=== PATIENT | male | born 1965 | race Hispanic/Latino ===

== ENCOUNTER 2019-02-22 08:22 | Observation (INO) | payer OTHER ==
[~2019-02-22] VITALS: Ht 180.3 cm; Wt 192.8 kg
[~2019-02-22 08:22] MED LIST: AMLODIPINE BESYL5 MG PO; ANDROGEL; ASPIR 8181 MG PO; AUGMENTIN 875-1 EACH PO; CARDIZEM LA180 MG PO; CLINDAMYCIN HC150 MG PO; CORDARONE200 MG PO; CYCLOBENZAPRINE10 MG PO; FAMOTIDINE20 MG PO; Famotidine IV; Hydrochlorothiazide PO; JANUVIA100 MG PO; JANUVIA50 MG PO; LANOXIN250 MCG PO; LANTUS100 UNITS/; LANTUS100 UNITS/ SC; LEVEMIR100 UNIT/1 SQ; LISINOPRIL-HCT1 EAC1; LOSARTAN POTAS100 MG PO; METFORMIN HCL1000 MG PO; METFORMIN HCL500 MG PO; NAPROXEN250 MG PO; SIMVASTATIN80 MG PO; TYLENOL WITH C1 EACH PO; XARELTO10 MG PO; [UNRECOGNIZED DRUG - OTHER]
--- OUTSIDE RECORDS SUMMARY | 2019-02-22 08:25 | XMS REPORT ---
[facility] Address Unknown Phone Unavailable Care Team Providers Care Body Trimmer Name Role Phone Devyn STANTON Unavailable Unavailable Problems This patient has no known problems. Allergies, Adverse Reactions, Alerts This patient has no known allergies or adverse reactions. Medications This patient has no known medications. Results Test Description Test Time Test Comments Text Results Atomic Results Result Comments TISSUE EXAM 2017-02-03 15:15:00 Surgical Pathology Report Case: [id number] Authorizing Provider: Anthony Stanton MD Collected: 02/02/2017 1353 Ord ering Location: [facility] Endoscopy Received: 02/02/2017 1540 Services Pathologist: Liliam Nova MD Specimens: A) - Polyp, Colon - Right/Ascending, cold forceps polypectomy B) - Polyp, Colon - Left/Descending, cold forceps polypectomy C) - Polyp, Colon - Rectum, cold forceps polypectomy A. ASCENDING COLON POLYP, BIOPSY: - MUCOSAL TAG B. DESCENDING COLON POLYP, BIOPSY: - TUBULAR ADENOMAC. RECTAL POLYP, BIOPSY: - MUCOSAL TAG 98112 X 3Colon cancer screeningA. Right/ascending colon polypB. Left/descending colon polypC. Rectum polypSpecimen A: Received in formalin labeled "polyp, colon right/ascending" is a single fragment measuring 0.3 cm in greatest dimension. Specimen is entirely submitted in A1. Specimen B: Received in formalin labeled "polyp, colon left/descending" are three fragments measuring 0.6 x 0.5 x 0.1 cm in aggregate. Specimen is entirely submitted in B1.Specimen C: Received in formalin labeled "polyp, colon rectum" are three fragments measuring 0.7 x 0.6 x 0.1 cm in aggregate. Specimen is entirely submitted in C1. DB/Taina-B, performed. POTASSIUM-STAT LAB 2017-02-02 14:51:00 POTASSIUM (BEAKER) (test qpdd=762) 3.4 meq/L 3.6-5.5 POCT-GLUCOSE [id number] 12:15:00* Test Item Value Reference Range Comments POC-GLUCOSE METER (TATIANA) (test mxqd=8235) 157 mg/dL 70-110 TESTED AT [facility] [address] [facility] [address]
--- OUTSIDE RECORDS SUMMARY | 2019-02-22 08:25 | XMS REPORT | Clinical Summary ---
Author Author JANIE [facility] Organization [facility] Address Unknown Phone Unavailable Care Team Providers Care Transporter Driver Name Role Phone EloyKen sung Tarun PCP Unavailable Allergies No Known Allergies Medications End Date Status Medication Sig Dispensed Refills Start Date Active metFORMIN (GLUCOPHAGE) Take 1,000 mg 0 1000 MG tablet by mouth 2 (two) times daily with breakfast and dinner. Active SITagliptin (JANUVIA) 100 Take 100 mg 0 MG tablet by mouth daily. Active aspirin 325 MG EC tablet Take 325 mg 0 by mouth daily. Active atorvastatin (LIPITOR) 40 Take 40 mg by 0 MG tablet mouth daily. Active diltiazem (TIAZAC) 180 MG Take 180 mg 0 24 hr capsule by mouth daily. Active insulin glargine (LANTUS) Inject 0 100 unit/mL injection subcutaneousl y nightly Use as directed . Active losartan-hydroCHLOROthiaz Take 1 tablet 0 teto (HYZAAR) 100-25 mg by mouth per tablet daily. Active famotidine (PEPCID) 10 MG Take 10 mg by 0 tabletIndications: mouth daily heartburn as needed for Heartburn. Active Problems Not on file Social History Date Tobacco Use Types Packs/Day Years Used Never Smoker Smokeless Tobacco: Never Used Alcohol Use Drinks/Week oz/Week Comments Yes occas. Sex Assigned at Date Recorded Not on file Industry Job Start Date Occupation Not on file Not on file Not on file Travel End Travel History Travel Start No recent travel history available. Last Filed Vital Signs Not on file Plan of Treatment Not on file Results Not on fileafter 02/21/2018 Insurance Payer Benefit Subscriber ID Type Phone Address Plan / Group [employer] - [employer] CARE [employer]H xxxxxxxxxxx HMO/POS NETWORK
--- NOTE | 2019-02-22 08:40 | NUR ---
URINE CUP GIVEN AT TRIAGE.
[2019-02-22] MEDS ORDERED: ASPIRIN325 MG PO (08:48)
[2019-02-22] MEDS ORDERED: TYLENOL WITH C1 EACH PO (08:48)
[2019-02-22] MEDS ORDERED: PIOGLITAZONE HC45 MG PO (08:48)
[2019-02-22] MEDS ORDERED: ATORVASTATIN CA20 MG PO (08:48)
[2019-02-22] MEDS ORDERED: TESTOSTERONE (08:48)
[2019-02-22] MEDS ORDERED: LOSARTAN-HCTZ1 EAC1 PO (08:48)
[2019-02-22] MEDS ORDERED: NOVOLOG100 UNITS1 (08:49)
[2019-02-22] MEDS ORDERED: HUMALOG100 UNIT/3 (08:49)
[2019-02-22] MEDS ORDERED: SODIUM CHLORIDE 0.9% 1000ML 1,000 ML IV STA (09:02)
--- NOTE | 2019-02-22 09:31 | Diagnostic Imaging Report ---
Examination: Single AP view of the chest. COMPARISON: None. INDICATION: Tachycardia DISCUSSION: The lungs are well-inflated. Minimal linear opacity in the lung bases right greater than left compatible with subsegmental atelectasis. No airspace consolidation, pleural effusion, or pneumothorax. Atherosclerotic calcification of the thoracic aorta. Otherwise normal cardiomediastinal contour for portable, AP technique. No acute osseous abnormality. IMPRESSION: Subsegmental atelectasis in the lung bases. Otherwise no acute cardiopulmonary abnormality. Signed by: Dr. Tushar Cano M.D. on 02/22/2019 9:28 AM
[2019-02-22 10:19] LABS: BASOPHILS % 0.2 % (0.0-1.0); HEMATOCRIT 44.7 % (38.2-49.6); HEMOGLOBIN 15.2 g/dL (14.0-18.0); LYMPHOCYTES # (AUTO) 1.1 (1.0-3.2); LYMPHOCYTES % 6.2 % (18.0-39.1); MEAN CORPUSCULAR HEMOGLOBIN 29.1 pg (28-32); MEAN CORPUSCULAR VOLUME 85.5 fL (81-99); MONOCYTES % 5.7 % (4.4-11.3); NEUTROPHILS # (AUTO) 14.9 (2.1-6.9); NEUTROPHILS % 87.4 % (38.7-80.0); PLATELET COUNT 199 x10e3/uL (140-360); RED BLOOD COUNT 5.23 x10e6/uL (4.3-5.7); RED CELL DISTRIBUTION WIDTH 13.1 % (11.7-14.4)
[2019-02-22 10:21] LABS: BILIRUBIN,URINE NEGATIVE (NEGATIVE); CLARITY,URINE SL CLOUDY (CLEAR); COLOR,URINE YELLOW (YELLOW); KETONES,URINE NEGATIVE (NEGATIVE); LEUKOCYTE ESTERASE ,URINE NEGATIVE (NEGATIVE); NITRITE,URINE NEGATIVE (NEGATIVE); PROTEIN,URINE DIPSTICK 1+ (NEGATIVE); URINE UROBILINOGEN 4 mg/dL (0.2 - 1)
[2019-02-22 10:39] LABS: BACTERIA,URINE RARE /HPF; EPITHELIAL CELLS,URINE FEW /LPF
[2019-02-22 10:40] LABS: WBC,URINE (MAN) 0-5 /HPF (0-5)
[2019-02-22 10:45] LABS: ALANINE AMINOTRANSFERASE 31 IU/L (0-55); ALBUMIN/GLOBULIN RATIO 0.7 (0.8-2.0); ALKALINE PHOSPHATASE 84 IU/L (40-150); BLOOD UREA NITROGEN 19 mg/dL (7-26); BUN/CREATININE RATIO 19 (6-25); CALCIUM 9.4 mg/dL (8.4-10.2); CARBON DIOXIDE 25 mmol/L (22-29); CHLORIDE 98 mmol/L (98-107); CREATINE KINASE 138 IU/L (30-200); CREATININE, SERUM 1.01 mg/dL (0.72-1.25); EST GLOMERULAR FILTRATION RATE > 60 ML/MIN (60-); GLUCOSE 279 mg/dL (74-118); SODIUM 131 mmol/L (136-145)
[2019-02-22] MEDS ORDERED: CEFTRIAXONE SOD 1 GM/NS 50 ML 50 ML IV SCH (10:45)
[2019-02-22] MEDS ORDERED: CLINDAMYCIN PHOS 900MG/ 50ML 50 ML IV STA (11:02)
[2019-02-22] MEDS ORDERED: ACETAMINOPHEN 1000 MG/100 ML IV STA (11:02)
[2019-02-22] MEDS ORDERED: CLINDAMYCIN PHOS 900MG/ 50ML 50 ML IV NR (11:30)
[2019-02-22] MEDS ORDERED: CLINDAMYCIN 300MG 50 ML IV SCH (12:00)
[2019-02-22 12:05] LABS: INFLUENZAE A&B ANTIGEN (RAPID) NEGATIVE (NEGATIVE); STREPTOCOCCUS GRP A ANTIGEN NEGATIVE (NEGATIVE)
[2019-02-22] MEDS ORDERED: ONDANSETRON HCL INJ 2MG/ML 2ML 2 MG/ML VIAL IV PRN (12:15)
[2019-02-22] MEDS ORDERED: ACETAMINOPHEN 325 MG TAB PO PRN (12:15)
--- OUTSIDE RECORDS SUMMARY | 2019-02-22 12:21 | XMS REPORT | Clinical Summary ---
Author Author JANIE [facility] Organization [facility] Address Unknown Phone Unavailable Care Team Providers Care Fireproof Door Assembler Name Role Phone EloyKen sung Tarun PCP [...]
[2019-02-22] MEDS: CLINDAMYCIN PHOS 900MG/ 50ML 50 ML IV SCH ×2 (12:28→21:46)
[2019-02-22] MEDS ORDERED: CLONIDINE HCL 0.1 MG TAB PO PRN (12:30)
[2019-02-22] MEDS: SODIUM CHLORIDE 0.9% 1000ML 1,000 ML IV SCH ×3 (13:07→21:54)
--- NOTE | 2019-02-22 14:04 | Diagnostic Imaging Report ---
Exam: Left foot 3 views History: Concern for osteomyelitis the second digit Comparison: None. Findings: No acute, displaced fracture or dislocation. Appropriate alignment between the medial cuneiform and second metatarsal base in keeping with an intact Lisfranc ligament. No cortical erosive or destructive change. Specifically, the phalanges of the second ray are intact. Atherosclerotic vascular calcifications. Degenerative plantar calcaneal spur. Scattered degenerative joint disease of the midfoot. Impression: No acute osseous abnormality. No cortical erosive or destructive change of the phalanges of the second ray to suggest osteomyelitis. If there is strong clinical concern, 3 phase nuclear medicine bone scan or MRI with and without contrast may be obtained for more sensitive evaluation. Signed by: Dr. Tushar Cano M.D. on 02/22/2019 2:00 PM
[2019-02-22] MEDS ORDERED: METFORMIN HCL500 MG PO (17:32)
[2019-02-22] MEDS: METFORMIN HCL 500 MG TAB CR PO SCH (17:58)
[2019-02-22] MEDS: LACTOBACILLUS ACIDOPHILUS CAPSULE PO SCH (17:58)
[2019-02-22] MEDS: INSULIN LISPRO 100 UNIT/1 ML 3ML VIAL SQ SCH ×2 (17:58→21:45)
--- NOTE | 2019-02-22 20:51 | NUR ---
pt placed on tele box 3
[2019-02-22 21:25] VITALS: BP 169/76
[2019-02-22] MEDS: ENOXAPARIN SOD INJ 40 MG/0.4 ML SYR SC SCH (21:45)
[2019-02-22 22:10] VITALS: BP 169/76
[2019-02-22 22:16] VITALS: BP 169/76
[2019-02-23 00:35] VITALS: BP 143/70
[2019-02-23 04:30] VITALS: BP 142/66
[2019-02-23] MEDS: CLINDAMYCIN PHOS 900MG/ 50ML 50 ML IV SCH (05:01)
[2019-02-23 05:41] LABS: BASOPHILS % 0.4 % (0.0-1.0); EOSINOPHILS # (AUTO) 0.1 (0.0-0.4); EOSINOPHILS % 0.6 % (0.0-6.0); HEMATOCRIT 47.2 % (38.2-49.6); HEMOGLOBIN 15.8 g/dL (14.0-18.0); LYMPHOCYTES # (AUTO) 2.8 (1.0-3.2); LYMPHOCYTES % 27.5 % (18.0-39.1); MEAN CORPUSCULAR HEMOGLOBIN 28.8 pg (28-32); MEAN CORPUSCULAR HGB CONC 33.5 g/dL (31-35); MONOCYTES # (AUTO) 1.1 (0.2-0.8); MONOCYTES % 10.8 % (4.4-11.3); NEUTROPHILS # (AUTO) 6.2 (2.1-6.9); NEUTROPHILS % 60.4 % (38.7-80.0); PLATELET COUNT 192 x10e3/uL (140-360); RED BLOOD COUNT 5.49 x10e6/uL (4.3-5.7); RED CELL DISTRIBUTION WIDTH 13.2 % (11.7-14.4)
[2019-02-23 05:58] LABS: ALANINE AMINOTRANSFERASE 31 IU/L (0-55); ALBUMIN 2.9 g/dL (3.5-5.0); ALBUMIN/GLOBULIN RATIO 0.6 (0.8-2.0); ALKALINE PHOSPHATASE 80 IU/L (40-150); ANION GAP 12.8 mmol/L (8-16); BLOOD UREA NITROGEN 14 mg/dL (7-26); BUN/CREATININE RATIO 16 (6-25); CALCIUM 9.2 mg/dL (8.4-10.2); CARBON DIOXIDE 25 mmol/L (22-29); CHLORIDE 101 mmol/L (98-107); CREATININE, SERUM 0.89 mg/dL (0.72-1.25); EST GLOMERULAR FILTRATION RATE > 60 ML/MIN (60-); GLUCOSE 233 mg/dL (74-118); POTASSIUM 3.8 mmol/L (3.5-5.1); SODIUM 135 mmol/L (136-145)
--- NOTE | 2019-02-23 07:00 | NUR ---
rounded with shift lab technician nurse, patient aware of change and in no distress. at bedside, call jenkins within reach and bed in lowest position.
[2019-02-23 08:12] VITALS: BP 138/62
[2019-02-23 08:20] VITALS: BP 138/62
[2019-02-23] MEDS: ENOXAPARIN SOD INJ 40 MG/0.4 ML SYR SC SCH (08:20)
[2019-02-23] MEDS: INSULIN LISPRO 100 UNIT/1 ML 3ML VIAL SQ SCH ×2 (08:20→12:00)
[2019-02-23] MEDS: LACTOBACILLUS ACIDOPHILUS CAPSULE PO SCH (08:20)
[2019-02-23] MEDS: METFORMIN HCL 500 MG TAB CR PO SCH (08:20)
[2019-02-23] MEDS ORDERED: ASPIRIN 325 MG TAB PO SCH (09:00)
[2019-02-23] MEDS ORDERED: DILTIAZEM HCL 180 MG CAP ER PO SCH (09:00)
[2019-02-23] MEDS: SODIUM CHLORIDE 0.9% 1000ML 1,000 ML IV SCH (11:54)
[2019-02-23 12:14] VITALS: BP 137/76
[2019-02-23] MEDS ORDERED: PIOGLITAZONE HCL 15 MG TAB PO SCH (12:15)
[2019-02-23] MEDS ORDERED: CLINDAMYCIN HC150 MG PO (12:31)
[2019-02-23] MEDS ORDERED: ACIDOPHILUS1 EAC1 PO (12:32)
[2019-02-23] MEDS ORDERED: ONDANSETRON HCL 4 MG ORAL DISINTEGRATING TAB PO PRN (13:00)
--- NOTE | 2019-02-23 13:25 | NUR ---
patient alert and oriented with at bedside. discharge instructions given at this time, both verbalized understanding. IV discontinued at this time, catheter in tact and small dressing applied. Patient refused wheelchair assistance and will be escorted from unit to personal auto for to drive home.
--- NOTE | 2019-02-24 11:57 | Discharge Summary ---
PRIMARY CARE DOCTOR: Dr. Ken Lyons. FINAL DIAGNOSIS: Sepsis present on admission due to left leg cellulitis. SECONDARY DIAGNOSES: 1. Uncontrolled diabetes, better. 2. Hyponatremia, resolving. 3. Morbid obesity. 4. Hypertension, stable. PROCEDURES AND STUDIES PERFORMED: 1. Left leg venous Doppler preliminary was negative for DVT. 2. Foot x-ray was negative for osteo. 3. Chest x-ray just shows atelectasis. CONSULTANTS: None. HISTORY: Per H and P. HOSPITAL COURSE: The patient was aggressively hydrated. He was started on IV clindamycin. He responded well. His leukocytosis normalized. The patient is afebrile. We will go ahead and let him go home on six more days of oral clindamycin to complete a one-week course. The patient will follow up with his primary care doctor in one week. The patient was seen and examined today. CONDITION ON DISCHARGE: Improved. DISCHARGE MEDICATIONS: Please see medication reconciliation form. MD MERVAT Zuleta/ANN-MARIE /[id number]
== END 2019-02-23 13:25 | disposition home or self-care (01) ==
LOC: ER 08:22 → ERHOLD 12:18 → IMCU 20:55
PROVIDERS: ADMIT Internal Medicine; ATTEND Internal Medicine
DX: A41.9 Sepsis, unspecified organism (principal); E11.65 Type 2 diabetes mellitus with hyperglycemia; E87.1 Hypo-osmolality and hyponatremia; E66.01 Morbid (severe) obesity due to excess calories; Z68.43 Body mass index [BMI] 50.0-59.9, adult; I48.91 Unspecified atrial fibrillation; Z79.01 Long term (current) use of anticoagulants; I10 Essential (primary) hypertension; L03.116 Cellulitis of left lower limb
CPT/HCPCS: 36415 ×2; 71045; 73630; 80053 ×2; 81001; 82550; 82553; 82948 ×2; 83518; 83605; 84443; 84484; 85025 ×2; 87040; 87070; 87400; 93971; 99284; G0378 ×2; J0131; J0696; J1650 ×2; J7030

== ENCOUNTER 2019-04-12 14:01 | Inpatient (IN) | payer OTHER ==
[~2019-04-12] VITALS: Ht 180.3 cm; Wt 192.8 kg
[~2019-04-12 14:01] MED LIST changes: +ACIDOPHILUS1 EAC1 PO; +ASPIRIN325 MG PO; +ATORVASTATIN CA20 MG PO; +HUMALOG100 UNIT/3; +LOSARTAN-HCTZ1 EAC1 PO; +NOVOLOG100 UNITS1; +PIOGLITAZONE HC45 MG PO; +TESTOSTERONE
--- OUTSIDE RECORDS SUMMARY | 2019-04-12 14:05 | XMS REPORT | Clinical Summary ---
Author Author JANIE [facility] Organization [facility] Address Unknown Phone Unavailable Care Team Providers Care Certified Medical Dosimetrist Name Role Phone EloyKen Tarun PCP Unavailable Allergies No Known Allergies [...] Not on file Results Not on fileafter 04/11/2018 Insurance Payer Benefit Subscriber ID Type Phone Address Plan / Group [employer] - [employer] CARE [employer] COH xxxxxxxxxxx HMO/POS NETWORK
[2019-04-12] MEDS ORDERED: SODIUM CHLORIDE 0.9% 1000ML 1,000 ML IV STA ×3 (14:21→17:56)
[2019-04-12] MEDS ORDERED: ACETAMINOPHEN 1000 MG/100 ML IV ONE (14:30)
[2019-04-12] MEDS ORDERED: VANCOMYCIN 1GM/NS 250 ML 250 ML IV ONE (14:45)
[2019-04-12 14:49] LABS: BILIRUBIN,URINE NEGATIVE (NEGATIVE); CLARITY,URINE SL CLOUDY (CLEAR); COLOR,URINE YELLOW (YELLOW); KETONES,URINE TRACE (NEGATIVE); LEUKOCYTE ESTERASE ,URINE NEGATIVE (NEGATIVE); NITRITE,URINE NEGATIVE (NEGATIVE); URINE UROBILINOGEN 2 mg/dL (0.2 - 1)
[2019-04-12 14:52] LABS: PROTEIN,URINE DIPSTICK 3+ (NEGATIVE)
[2019-04-12 15:05] LABS: BACTERIA,URINE MODERATE /HPF; EPITHELIAL CELLS,URINE FEW /LPF; RBC,URINE 0-5 /HPF (0-5); WBC,URINE (MAN) 0-5 /HPF (0-5)
[2019-04-12 15:44] LABS: BASOPHILS % 0.2 % (0.0-1.0); EOSINOPHILS # (AUTO) 0.1 (0.0-0.4); EOSINOPHILS % 0.6 % (0.0-6.0); HEMATOCRIT 47.3 % (38.2-49.6); HEMOGLOBIN 15.5 g/dL (14.0-18.0); LYMPHOCYTES # (AUTO) 0.4 (1.0-3.2); LYMPHOCYTES % 2.3 % (18.0-39.1); MEAN CORPUSCULAR HEMOGLOBIN 28.3 pg (28-32); MEAN CORPUSCULAR HGB CONC 32.8 g/dL (31-35); MEAN CORPUSCULAR VOLUME 86.3 fL (81-99); MONOCYTES # (AUTO) 0.5 (0.2-0.8); MONOCYTES % 3.1 % (4.4-11.3); NEUTROPHILS # (AUTO) 15.9 (2.1-6.9); NEUTROPHILS % 92.7 % (38.7-80.0); PLATELET COUNT 206 x10e3/uL (140-360); RED BLOOD COUNT 5.48 x10e6/uL (4.3-5.7); RED CELL DISTRIBUTION WIDTH 13.6 % (11.7-14.4)
[2019-04-12] MEDS: CEFEPIME 2 GM/NS 0.9% 100 ML 100 ML IV SCH (15:46)
[2019-04-12 15:55] LABS: INR 1.03; PARTIAL THROMBOPLASTIN TIME 33.9 seconds (23.8-35.5)
[2019-04-12 16:07] LABS: ALBUMIN 3.1 g/dL (3.5-5.0); ALBUMIN/GLOBULIN RATIO 0.6 (0.8-2.0); ANION GAP 16.1 mmol/L (8-16); CALCIUM 9.6 mg/dL (8.4-10.2); CREATININE, SERUM 1.49 mg/dL (0.72-1.25); MAGNESIUM 1.5 MG/DL (1.3-2.1); POTASSIUM 4.1 mmol/L (3.5-5.1)
[2019-04-12 16:15] LABS: CREATINE KINASE MB 0.8 ng/mL (0-5.0)
--- NOTE | 2019-04-12 16:34 | Diagnostic Imaging Report ---
EXAMINATION: CHEST SINGLE (PORTABLE) INDICATION: Fever COMPARISON: Chest radiograph of 02/22/2019 FINDINGS: TUBES and LINES: EKG leads overlie the chest. LUNGS: The lung volumes are extremely low. No definite pulmonary edema. No focal consolidation. PLEURA: No pleural effusion. No pneumothorax. HEART AND MEDIASTINUM: The heart appears enlarged, however this may be a factor of the extremely low lung volumes. BONES AND SOFT TISSUES: No acute fracture or dislocation. UPPER ABDOMEN: No free air under the diaphragm. IMPRESSION: Extremely low lung volumes. No focal pneumonia or pulmonary edema. Signed by: Daphne Garza MD on 04/12/2019 4:31 PM
[2019-04-12] MEDS: PIPER-TAZ 3.375 GM 50 ML IV SCH (17:15)
[2019-04-12] MEDS ORDERED: ONDANSETRON HCL INJ 2MG/ML 2ML 2 MG/ML VIAL IV PRN (18:00)
[2019-04-12] MEDS ORDERED: ACETAMINOPHEN 1000 MG/100 ML IV PRN (18:00)
[2019-04-12 18:44] LABS: ABG HCO3 22 mmol/L (23-28); ABG PCO2 31 mmHg (41-51); ABG PH 7.45 (7.31-7.41); ABG PO2 56 mmHg (80-105)
--- OUTSIDE RECORDS SUMMARY | 2019-04-12 19:08 | XMS REPORT | Clinical Summary ---
Author Author JANIE [facility] Organization [facility] Address Unknown Phone Unavailable Care Team Providers Care Investigator Internal Affairs Name Role Phone EloyKen Tarun PCP Unavailable [...]
[2019-04-12] MEDS ORDERED: NOREPINEPHRINE INJ 4MG/4ML 8 MG in DEXTROSE 5% 250ML 250 ML IV PRN (19:15)
[2019-04-12] MEDS ORDERED: NOREPINEPHRINE 8 MG/D5W 250 ML 250 ML IV PRN (19:30)
--- NOTE | 2019-04-12 19:33 | Diagnostic Imaging Report ---
EXAMINATION: CHEST SINGLE (PORTABLE) INDICATION: ^RIJ CENTRAL LINE ^[id number] ^[id number] COMPARISON: Chest radiograph 04/12/2019 1616 p.m. FINDINGS: AP view TUBES and LINES: Interval placement of a right IJ central venous catheter with tip overlying the cavoatrial junction. LUNGS: Low lung volumes. Lungs are clear. There is no evidence of pneumonia or pulmonary edema. PLEURA: No pleural effusion or pneumothorax. HEART AND MEDIASTINUM: The cardiac silhouette is enlarged likely overestimated by low lung volumes. BONES AND SOFT TISSUES: No acute osseous lesion. Soft tissues are unremarkable. UPPER ABDOMEN: No free air under the diaphragm. IMPRESSION: Interval placement of a right IJ central venous catheter with tip overlying the cavoatrial junction. No pneumothorax. Signed by: Dr. Laurie Palmer M.D. on 04/12/2019 7:29 PM
--- NOTE | 2019-04-12 20:50 | NUR ---
Received to 189 from ER. Placed on EKG, pulse ox & NBP for monitoring. Admission history, initial admission assessment & vacine assessment completed.
[2019-04-12 20:59] VITALS: BP 132/62
[2019-04-12 21:07] VITALS: BP 132/62
[2019-04-12 21:13] VITALS: BP 132/62
[2019-04-12] MEDS ORDERED: SODIUM CHLORIDE 0.9% 1000ML 1,000 ML ONE (21:13)
[2019-04-12 21:30] VITALS: BP 150/65
[2019-04-12] MEDS ORDERED: SODIUM CHLORIDE 0.9% 500ML 500 ML ONE (21:46)
[2019-04-12 22:02] VITALS: BP 162/66
[2019-04-12] MEDS ORDERED: DEXTROSE 50% SYRINGE 50 ML IV PRN (22:30)
[2019-04-12] MEDS: AMIODARONE HCL 200 MG TAB PO SCH (22:36)
[2019-04-12] MEDS: DILTIAZEM HCL 180 MG CAP ER PO SCH (22:36)
[2019-04-12] MEDS: INSULIN LISPRO 100 UNIT/1 ML 3ML VIAL SQ SCH (22:36)
[2019-04-12 23:00] VITALS: BP 158/70
--- NOTE | 2019-04-12 23:31 | NUR ---
Temp now 103.1. IV Tylenol given.
[2019-04-13] VITALS (21 sets, daily range): BP systolic 104–178; BP diastolic 52–97
--- NOTE | 2019-04-13 00:30 | NUR ---
Temp now 99.4.
[2019-04-13] MEDS: PIPER-TAZ 3.375 GM 50 ML IV SCH ×4 (00:33→21:21)
--- NOTE | 2019-04-13 00:49 | NUR ---
Dangled at side of bed for 15 min then back in bed.
[2019-04-13] MEDS: CEFEPIME 2 GM/NS 0.9% 100 ML 100 ML IV SCH (02:53)
[2019-04-13 02:58] LABS: CREATINE KINASE 140 IU/L (30-200)
[2019-04-13 05:08] LABS: BASOPHILS % 0.2 % (0.0-1.0); EOSINOPHILS % 0.2 % (0.0-6.0); HEMATOCRIT 41.7 % (38.2-49.6); HEMOGLOBIN 13.9 g/dL (14.0-18.0); LYMPHOCYTES # (AUTO) 0.8 (1.0-3.2); LYMPHOCYTES % 4.7 % (18.0-39.1); MEAN CORPUSCULAR HEMOGLOBIN 28.8 pg (28-32); MEAN CORPUSCULAR HGB CONC 33.3 g/dL (31-35); MEAN CORPUSCULAR VOLUME 86.3 fL (81-99); MONOCYTES # (AUTO) 0.5 (0.2-0.8); MONOCYTES % 3.1 % (4.4-11.3); NEUTROPHILS # (AUTO) 15.8 (2.1-6.9); NEUTROPHILS % 91.1 % (38.7-80.0); PLATELET COUNT 154 x10e3/uL (140-360); RED BLOOD COUNT 4.83 x10e6/uL (4.3-5.7); RED CELL DISTRIBUTION WIDTH 13.9 % (11.7-14.4)
[2019-04-13 05:38] LABS: ALANINE AMINOTRANSFERASE 29 IU/L (0-55); ALBUMIN 2.4 g/dL (3.5-5.0); ALBUMIN/GLOBULIN RATIO 0.5 (0.8-2.0); ALKALINE PHOSPHATASE 68 IU/L (40-150); ANION GAP 13.6 mmol/L (8-16); BLOOD UREA NITROGEN 25 mg/dL (7-26); BUN/CREATININE RATIO 21 (6-25); CALCIUM 8.5 mg/dL (8.4-10.2); CARBON DIOXIDE 23 mmol/L (22-29); CHLORIDE 100 mmol/L (98-107); CREATININE, SERUM 1.17 mg/dL (0.72-1.25); EST GLOMERULAR FILTRATION RATE > 60 ML/MIN (60-); GLUCOSE 241 mg/dL (74-118); POTASSIUM 3.6 mmol/L (3.5-5.1); SODIUM 133 mmol/L (136-145)
[2019-04-13] MEDS: INSULIN LISPRO 100 UNIT/1 ML 3ML VIAL SQ SCH ×3 (07:45→21:28)
[2019-04-13] MEDS: AMIODARONE HCL 200 MG TAB PO SCH ×2 (09:53→17:10)
[2019-04-13 10:26] LABS: ANISOCYTOSIS SLIG; BAND NEUTROPHILS % (MANUAL) 5 %; LYMPHOCYTES % (MANUAL) 26 % (19-48); MONOCYTES % (MANUAL) 4 % (3.4-9.0); NEUTROPHILS % (MANUAL) 65 % (40-74); PLATELET ESTIMATE ADEQUATE; PLATELET MORPHOLOGY COMMENT NORMAL; POIKILOCYTOSIS SLIGHT; RBC MORPHOLOGY COMMENT ABNORMAL
[2019-04-13 11:54] LABS: CREATINE KINASE MB 0.9 ng/mL (0-5.0)
[2019-04-13] MEDS: VANCOMYCIN 1GM/NS 250 ML 250 ML IV SCH ×2 (12:25→23:34)
[2019-04-13] MEDS ORDERED: CLONIDINE HCL 0.1 MG TAB PO PRN (12:30)
--- NOTE | 2019-04-13 13:15 | NUR ---
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 WILL DETERMINE PLAN FROM DOCTOR EVALUATION.
[2019-04-13] MEDS: LACTATED RINGER'S 1,000 ML IV SCH ×2 (13:48→23:22)
[2019-04-13] MEDS: ENOXAPARIN SOD INJ 40 MG/0.4 ML SYR SC SCH ×2 (13:48→21:21)
[2019-04-13] MEDS: INSULIN GLARGINE 100 UNITS/ML VIAL SQ SCH (13:48)
[2019-04-13] MEDS: FAMOTIDINE 20 MG TAB PO SCH (16:56)
[2019-04-13] MEDS: LACTOBACILLUS ACIDOPHILUS CAPSULE PO SCH (17:10)
--- NOTE | 2019-04-13 21:10 | Consultation ---
INFECTIOUS DISEASE CONSULTATION DATE OF CONSULTATION: 04/13/2019 REASON FOR CONSULTATION: Bacteremia. Thank you, Dr. Sanchez, for asking me to see this patient, who was admitted through the emergency department. HISTORY OF PRESENT ILLNESS: The patient is a 53-year-old man, who was referred for bacteremia. He presented to the emergency department yesterday with fever and chills. He was feeling fatigued and weak for two days prior. He sustained scratches of the leg and subsequently developed redness. The patient developed the scratches of the leg while wading in salt [place] [facility]. He denies insect and spider bite and animal contact. In the emergency department, he was noted to have temperature of 103 degrees Fahrenheit, pulse rate 107, respiratory rate 22, blood pressure 116/61, and oxygen saturation 92% on room air. Initial laboratory studies showed blood leukocyte count of 17,120 with 92.7% neutrophils, BUN 29, creatinine 1.49, and blood glucose 274. Blood culture later grew gram-positive cocci in chains. PAST MEDICAL HISTORY: Severe obesity, diabetes mellitus type 2, hypertension, dyslipidemia, atrial fibrillation, gastroesophageal reflux disease, recurrent cellulitis. PAST SURGICAL HISTORY: Left knee surgery for repair of torn tendon. ALLERGIES: NO KNOWN DRUG ALLERGIES. MEDICATIONS: See MAR. The current antibiotics are Zosyn 3.375 g IV piggyback q.8 hours and vancomycin 1 g IV piggyback q. 12 hours. He received cefepime earlier. IMMUNIZATION: He received Pneumovax in 2012, Tdap within 10 years, and shingles vaccine as well. FAMILY HISTORY: Noncontributory. SOCIAL HISTORY: No tobacco or recreational drug use. He drinks alcohol rarely. REVIEW OF SYSTEMS: As per history of present illness. The patient is still weak and fatigued and reports intermittent fever and chills. He denies cough, shortness of breath, nausea, vomiting, diarrhea, abdominal pain, dysuria and increased frequency of urination. Still has left leg redness. PHYSICAL EXAMINATION: GENERAL: Acutely ill. VITAL SIGNS: T-max 103, pulse rate 95, respiratory rate 17, blood pressure 144/77, weight 419 pounds. HEENT: Normocephalic. There is no icterus or injection of conjunctivae. There is no ear or nasal discharge. Moist oral mucosa with copious dental plaques. No pharyngeal erythema or exudate. NECK: Supple. No meningismus. LUNGS: Good air entry bilaterally. HEART: Normal S1, S2. Regular. ABDOMEN: Soft and nontender. EXTREMITIES: There is edema, redness, warmth and mild tenderness of the left leg extended from below the knee to the ankle. The dorsalis pedis and posterior tibial pulses are palpable. There is no edema, clubbing, or cyanosis of the rest of the extremities. There is a horizontal crack of the left 2nd toe plantar aspect. SKIN: As per extremities, there are multiple scratch luevano and scabs of the legs and forearms. DAY GUARD: Awake, alert, oriented to person, place, and time. There is decreased sensation to monofilament test of the feet. Nonfocal. LABORATORY AND DIAGNOSTICS: WBC 26746, hemoglobin 13.9, platelet 154,000, segments 65, bands 5, lymphocytes 26, monocytes 4. BUN 25, creatinine 1.17, blood glucose 231. Blood culture is growing a gram-positive cocci in chains. IMPRESSION: 1. Sepsis from cellulitis of the left leg with bacteremia. 2. Acute kidney injury from sepsis. 3. Diabetes mellitus type 2 with peripheral neuropathy, uncontrolled. 4. Paroxysmal atrial fibrillation. PLAN: 1. Await blood isolate identification and sensitivity. 2. Check vancomycin trough and venous Doppler ultrasound of the left lower extremity. 3. Apply warm compresses to the left leg and elevate left lower extremity. 4. Deescalate antibiotics once blood isolate is known and sensitivity is determined. 5. Glycemic control. 6. Podiatry consult for skin crack of the second left toe. MD KRAIG Phelps/ANN-MARIE /[id number] MTDNathan
[2019-04-13] MEDS: DILTIAZEM HCL 180 MG CAP ER PO SCH (21:21)
[2019-04-14] VITALS (8 sets, daily range): BP systolic 126–147; BP diastolic 64–80
[2019-04-14] MEDS: ACETAMINOPHEN 325 MG TAB PO PRN ×2 (05:20→17:17)
[2019-04-14] MEDS: PIPER-TAZ 3.375 GM 50 ML IV SCH ×3 (05:20→21:48)
[2019-04-14 05:43] LABS: BASOPHILS % 0.2 % (0.0-1.0); EOSINOPHILS % 0.1 % (0.0-6.0); HEMATOCRIT 39.8 % (38.2-49.6); HEMOGLOBIN 13.2 g/dL (14.0-18.0); LYMPHOCYTES # (AUTO) 1.3 (1.0-3.2); LYMPHOCYTES % 10.2 % (18.0-39.1); MEAN CORPUSCULAR HEMOGLOBIN 28.7 pg (28-32); MEAN CORPUSCULAR HGB CONC 33.2 g/dL (31-35); MEAN CORPUSCULAR VOLUME 86.5 fL (81-99); MONOCYTES # (AUTO) 1.1 (0.2-0.8); MONOCYTES % 9.1 % (4.4-11.3); NEUTROPHILS # (AUTO) 9.8 (2.1-6.9); NEUTROPHILS % 79.9 % (38.7-80.0); PLATELET COUNT 143 x10e3/uL (140-360); RED CELL DISTRIBUTION WIDTH 13.9 % (11.7-14.4)
[2019-04-14 06:08] LABS: ANION GAP 13.1 mmol/L (8-16); BLOOD UREA NITROGEN 15 mg/dL (7-26); BUN/CREATININE RATIO 17 (6-25); CALCIUM 8.9 mg/dL (8.4-10.2); CARBON DIOXIDE 25 mmol/L (22-29); CHLORIDE 100 mmol/L (98-107); CREATININE, SERUM 0.86 mg/dL (0.72-1.25); EST GLOMERULAR FILTRATION RATE > 60 ML/MIN (60-); GLUCOSE 225 mg/dL (74-118); POTASSIUM 4.1 mmol/L (3.5-5.1); SODIUM 134 mmol/L (136-145)
[2019-04-14] MEDS: INSULIN GLARGINE 100 UNITS/ML VIAL SQ SCH (07:30)
[2019-04-14] MEDS: INSULIN LISPRO 100 UNIT/1 ML 3ML VIAL SQ SCH ×4 (07:30→21:01)
[2019-04-14 07:32] LABS: LYMPHOCYTES % (MANUAL) 10 % (19-48); MONOCYTES % (MANUAL) 10 % (3.4-9.0); NEUTROPHILS % (MANUAL) 80 % (40-74); RBC MORPHOLOGY COMMENT NORMAL
[2019-04-14 07:33] LABS: PLATELET ESTIMATE SLIGHTLY DECREASED; PLATELET MORPHOLOGY COMMENT FEW AGRANULAR
[2019-04-14] MEDS: FAMOTIDINE 20 MG TAB PO SCH ×2 (08:00→17:00)
--- NOTE | 2019-04-14 08:00 | NUR ---
Patient is up in recliner in NAD. at the bedside. POC discussed. Patient and spouse instructed to call for assistance as needed and verbalized understanding.
[2019-04-14] MEDS: AMIODARONE HCL 200 MG TAB PO SCH ×2 (08:08→17:00)
[2019-04-14] MEDS: LACTOBACILLUS ACIDOPHILUS CAPSULE PO SCH ×2 (08:08→17:00)
[2019-04-14] MEDS: ENOXAPARIN SOD INJ 40 MG/0.4 ML SYR SC SCH ×2 (08:09→21:01)
[2019-04-14] MEDS: LACTATED RINGER'S 1,000 ML IV SCH (08:09)
[2019-04-14] MEDS ORDERED: ONDANSETRON HCL 4 MG ORAL DISINTEGRATING TAB PO PRN (10:45)
[2019-04-14] MEDS: METFORMIN HCL 500 MG TAB PO SCH ×2 (12:44→17:00)
[2019-04-14] MEDS: VANCOMYCIN 1GM/NS 250 ML 250 ML IV SCH (13:03)
[2019-04-14] MEDS ORDERED: VANCOMYCIN HCL 1.5 GM in SODIUM CHLORIDE 0.9% 250ML 300 ML IV SCH (13:45)
--- NOTE | 2019-04-14 19:00 | NUR ---
Walking rounds a nd report done. remains at the bedside. Call jenkins within reach.
--- NOTE | 2019-04-14 19:00 | NUR ---
Report received from AM nurse Britni. Patient received resting comfortably on recliner. Denied pain and no SOB. Respiration even and unlabored. at the bedside. Will continue to monitor.
[2019-04-14] MEDS: DILTIAZEM HCL 180 MG CAP ER PO SCH (21:01)
[2019-04-14] MEDS ORDERED: SODIUM CHLORIDE 0.9% 250ML 250 ML ONE (23:43)
[2019-04-15] VITALS (8 sets, daily range): BP systolic 118–154; BP diastolic 54–81
[2019-04-15] MEDS: VANCOMYCIN HCL 1.5 GM in SODIUM CHLORIDE 0.9% 250ML 300 ML IV SCH ×2 (01:07→13:38)
[2019-04-15] MEDS: ACETAMINOPHEN 325 MG TAB PO PRN ×2 (04:47→18:27)
[2019-04-15] MEDS: PIPER-TAZ 3.375 GM 50 ML IV SCH ×3 (05:40→21:36)
[2019-04-15] MEDS: METFORMIN HCL 500 MG TAB PO SCH ×2 (08:18→16:49)
[2019-04-15] MEDS: ENOXAPARIN SOD INJ 40 MG/0.4 ML SYR SC SCH ×2 (08:18→20:58)
[2019-04-15] MEDS: FAMOTIDINE 20 MG TAB PO SCH ×2 (08:18→16:49)
[2019-04-15] MEDS: AMIODARONE HCL 200 MG TAB PO SCH ×2 (08:18→16:49)
[2019-04-15] MEDS: LACTOBACILLUS ACIDOPHILUS CAPSULE PO SCH ×2 (08:18→16:49)
[2019-04-15] MEDS: INSULIN GLARGINE 100 UNITS/ML VIAL SQ SCH (08:19)
[2019-04-15] MEDS: INSULIN LISPRO 100 UNIT/1 ML 3ML VIAL SQ SCH ×4 (08:19→20:58)
[2019-04-15] MEDS ORDERED: LACTULOSE SYRUP 20 GM/30 ML UDC PO ONE (10:30)
--- NOTE | 2019-04-15 18:55 | NUR ---
pt concerned about GUARAV or desats while sleeping, bedside monitor ordered for while asleep
[2019-04-15] MEDS: DILTIAZEM HCL 180 MG CAP ER PO SCH (20:58)
[2019-04-16] MEDS: VANCOMYCIN HCL 1.5 GM in SODIUM CHLORIDE 0.9% 250ML 300 ML IV SCH ×2 (00:58→13:32)
[2019-04-16 04:51] VITALS: BP 106/88
[2019-04-16 05:10] LABS: BASOPHILS % 0.4 % (0.0-1.0); EOSINOPHILS # (AUTO) 0.1 (0.0-0.4); EOSINOPHILS % 1.1 % (0.0-6.0); HEMATOCRIT 37.9 % (38.2-49.6); HEMOGLOBIN 12.4 g/dL (14.0-18.0); LYMPHOCYTES # (AUTO) 2.1 (1.0-3.2); LYMPHOCYTES % 26.5 % (18.0-39.1); MEAN CORPUSCULAR HEMOGLOBIN 28.1 pg (28-32); MEAN CORPUSCULAR HGB CONC 32.7 g/dL (31-35); MEAN CORPUSCULAR VOLUME 85.9 fL (81-99); MONOCYTES # (AUTO) 1.1 (0.2-0.8); MONOCYTES % 13.4 % (4.4-11.3); NEUTROPHILS # (AUTO) 4.5 (2.1-6.9); NEUTROPHILS % 57.3 % (38.7-80.0); PLATELET COUNT 179 x10e3/uL (140-360); RED BLOOD COUNT 4.41 x10e6/uL (4.3-5.7); RED CELL DISTRIBUTION WIDTH 13.6 % (11.7-14.4)
[2019-04-16 05:35] LABS: ANION GAP 13.8 mmol/L (8-16); BLOOD UREA NITROGEN 15 mg/dL (7-26); BUN/CREATININE RATIO 18 (6-25); CALCIUM 8.9 mg/dL (8.4-10.2); CARBON DIOXIDE 25 mmol/L (22-29); CHLORIDE 100 mmol/L (98-107); CREATININE, SERUM 0.83 mg/dL (0.72-1.25); EST GLOMERULAR FILTRATION RATE > 60 ML/MIN (60-); GLUCOSE 181 mg/dL (74-118); POTASSIUM 3.8 mmol/L (3.5-5.1); SODIUM 135 mmol/L (136-145)
[2019-04-16] MEDS: PIPER-TAZ 3.375 GM 50 ML IV SCH ×2 (06:09→13:32)
[2019-04-16 07:21] VITALS: BP 135/77
[2019-04-16] MEDS: AMIODARONE HCL 200 MG TAB PO SCH ×2 (07:30→16:22)
[2019-04-16] MEDS: METFORMIN HCL 500 MG TAB PO SCH ×2 (07:30→16:22)
[2019-04-16] MEDS: LACTOBACILLUS ACIDOPHILUS CAPSULE PO SCH ×2 (07:30→16:22)
[2019-04-16] MEDS: INSULIN LISPRO 100 UNIT/1 ML 3ML VIAL SQ SCH ×4 (07:30→21:11)
[2019-04-16] MEDS: ENOXAPARIN SOD INJ 40 MG/0.4 ML SYR SC SCH ×2 (07:30→21:10)
[2019-04-16] MEDS: FAMOTIDINE 20 MG TAB PO SCH ×2 (07:30→16:22)
[2019-04-16 08:10] VITALS: BP 135/77
[2019-04-16] MEDS: INSULIN GLARGINE 100 UNITS/ML VIAL SQ SCH (09:00)
[2019-04-16] MEDS: ACETAMINOPHEN 325 MG TAB PO PRN ×2 (10:15→21:00)
[2019-04-16 11:19] VITALS: BP 127/56
[2019-04-16] MEDS: CEFTRIAXONE SOD 2 GM/NS 100 ML 100 ML IV SCH (13:41)
[2019-04-16 16:19] VITALS: BP 135/63
[2019-04-16 20:00] VITALS: BP_SYST 135; BP_SYST 137; BP_DIAS 63; BP_DIAS 67
[2019-04-16] MEDS: DILTIAZEM HCL 180 MG CAP ER PO SCH (21:10)
[2019-04-17] VITALS: BP 126/63
[2019-04-17 04:00] VITALS: BP 153/74
--- NOTE | 2019-04-17 07:00 | NUR ---
Report given to oncoming nurse,walking round done.
[2019-04-17] MEDS: INSULIN LISPRO 100 UNIT/1 ML 3ML VIAL SQ SCH ×2 (07:30→11:30)
[2019-04-17 07:52] VITALS: BP 148/84
[2019-04-17] MEDS: FAMOTIDINE 20 MG TAB PO SCH (08:20)
[2019-04-17] MEDS: METFORMIN HCL 500 MG TAB PO SCH (08:20)
[2019-04-17] MEDS: ENOXAPARIN SOD INJ 40 MG/0.4 ML SYR SC SCH (08:21)
[2019-04-17] MEDS: LACTOBACILLUS ACIDOPHILUS CAPSULE PO SCH (08:21)
[2019-04-17] MEDS: AMIODARONE HCL 200 MG TAB PO SCH (08:21)
[2019-04-17] MEDS: INSULIN GLARGINE 100 UNITS/ML VIAL SQ SCH (08:22)
[2019-04-17 08:23] VITALS: BP 148/84
--- NOTE | 2019-04-17 09:45 | NUR ---
Report given to Tosin YOUNG of patient's status. Taken to room 295. Accompanied by . O2 2L NC.
--- NOTE | 2019-04-17 09:55 | NUR ---
RECD PT FROM 187,VIA BED AAOX3,NO DISTRESS NOTED,O2 2L NC IN PLACE,
--- NOTE | 2019-04-17 11:24 | NUR ---
PT UP AMBULATING IN [place] ,RA SATS95%,NO SOB NOTED
[2019-04-17 11:56] VITALS: BP 142/66
[2019-04-17] MEDS ORDERED: CEPHALEXIN500 MG PO (13:45)
[2019-04-17] MEDS: CEFTRIAXONE SOD 2 GM/NS 100 ML 100 ML IV SCH (13:45)
[2019-04-17] MEDS ORDERED: FUROSEMIDE INJ 10 MG/ML 4 ML VIAL IV ONE (14:00)
--- NOTE | 2019-04-17 14:45 | NUR ---
rt ij dcd without redness or swelling,tip intact,pressure drsg applied
--- NOTE | 2019-04-17 15:45 | NUR ---
pt discharged home , apescriptions and instructions given copy on chart,pt transported to auto via w/c
--- NOTE | 2019-04-18 05:03 | Discharge Summary ---
PRIMARY CARE DOCTOR: Dr. Ken Lyons. FINAL DIAGNOSIS: Severe sepsis present on admission secondary to cellulitis with Strep septicemia. SECONDARY DIAGNOSES: 1. Morbid obesity. 2. Acute kidney injury, resolved. 3. Hypertension. 4. History of atrial fibrillation, still on amiodarone, but was taken off anticoagulation by his [facility] government guard. 5. Diabetes. SCRAP BREAKER: Dr. Meyer, Infectious Disease. PROCEDURES/STUDY PERFORMED: 1. Echocardiogram. 2. Doppler was negative for DVT. HISTORY: Per H and P. HOSPITAL COURSE: The patient was admitted. Initially, the patient was on Zosyn and vancomycin. The patient did well. Subsequently, this was switched to IV Rocephin. The patient continued to improve. Repeat blood culture is negative at 48 hours. I have discussed with Dr. Meyer today. The patient can go home on 10 more days of Keflex. The patient will also follow up with his primary care doctor in a week. I have updated his primary care doctor as well. The patient received Lovenox b.i.d. for chemical DVT prophylaxis, given morbid obesity. The patient was seen and examined today. It took 33 minutes total to discharge this patient continuing. CONDITION ON DISCHARGE: Improved. DISCHARGE MEDICATIONS: Please see medication reconciliation form. MD MERVAT Zuleta/ANN-MARIE /[id number] cc: [facility]
== END 2019-04-17 15:55 | disposition home or self-care (01) | DRG 871 ==
LOC: ER 14:01 → ERHOLD 17:56 → ICU 20:45 → IMCU 04-13 17:32 → MED/SURG3 04-17 09:39
PROVIDERS: ADMIT Internal Medicine; ATTEND Internal Medicine
DX: A40.9 Streptococcal sepsis, unspecified (principal); R65.21 Severe sepsis with septic shock; Z68.43 Body mass index [BMI] 50.0-59.9, adult; L03.119 Cellulitis of unspecified part of limb; N17.9 Acute kidney failure, unspecified; E66.01 Morbid (severe) obesity due to excess calories; E11.65 Type 2 diabetes mellitus with hyperglycemia
CPT/HCPCS: 36415; 36600; 71045; 80048; 80053; 80202; 81001; 82550; 82553; 82805; 82948; 83605; 83735; 84484; 85025; 85610; 85730; 87040; 87071; 87086; 87205; 93005; 93306; 93971; 97139; 99284; J0696; J1650; J1815; J1940; J2405; J2543; J3370; J7030; J7040; J7050; J7121; Q0162

== ENCOUNTER 2020-01-14 13:48 | Inpatient (IN) | payer OTHER ==
[~2020-01-14] VITALS: Ht 180.3 cm; Wt 194.6 kg
[~2020-01-14 13:48] MED LIST changes: +AMIODARONE HCL200 MG PO; +BACTRIM DS TAB1 EACH PO; +CEPHALEXIN500 MG PO; +LEVEMIR100 UNIT/1 SC; +TRULICITY0.75 MG/0. SQ
[2020-01-14] MEDS ORDERED: SODIUM CHLORIDE 0.9% 1000ML 1,000 ML IV STA (13:57)
[2020-01-14] MEDS ORDERED: ACETAMINOPHEN 325 MG TAB PO ONE (14:30)
[2020-01-14] MEDS ORDERED: AZITHROMYCIN 500MG/NS 250 ML 250 ML IV ONE (15:30)
[2020-01-14] MEDS ORDERED: PIPER-TAZ 3.375 GM 50 ML IV ONE (15:30)
--- NOTE | 2020-01-14 15:32 | Diagnostic Imaging Report ---
EXAMINATION: CHEST SINGLE (PORTABLE) INDICATION: ^Y ^ERMD ORDER ^[id number] ^1445 ^Y COMPARISON: 09/21/2019 FINDINGS: AP view TUBES and LINES: Right PICC has been removed. LUNGS: Low lung volumes. Bilateral pulmonary edema. Bibasilar consolidations. PLEURA: Small bilateral pleural effusions. No pneumothorax. HEART AND MEDIASTINUM: Stable mild enlargement of the cardiac silhouette. BONES AND SOFT TISSUES: No acute osseous lesion. Soft tissues are unremarkable. UPPER ABDOMEN: No free air under the diaphragm. IMPRESSION: Stable mild cardiomegaly with associated mild pulmonary edema and small bilateral pleural effusions, unchanged. Bibasilar atelectasis, decreased. Signed by: Dr. Laurie Palmer M.D. on 01/14/2020 3:27 PM
[2020-01-14 15:51] LABS: STREPTOCOCCUS GRP A ANTIGEN NEGATIVE (NEGATIVE)
[2020-01-14 15:58] LABS: INFLUENZAE A&B ANTIGEN (RAPID) NEGATIVE (NEGATIVE)
[2020-01-14 15:58] LABS: BASOPHILS % 0.2 % (0.0-1.0); EOSINOPHILS # (AUTO) 0.1 (0.0-0.4); EOSINOPHILS % 0.6 % (0.0-6.0); HEMATOCRIT 47.4 % (38.2-49.6); HEMOGLOBIN 15.6 g/dL (14.0-18.0); LYMPHOCYTES # (AUTO) 0.5 (1.0-3.2); LYMPHOCYTES % 3.2 % (18.0-39.1); MEAN CORPUSCULAR HEMOGLOBIN 28.9 pg (28-32); MEAN CORPUSCULAR HGB CONC 32.9 g/dL (31-35); MEAN CORPUSCULAR VOLUME 87.8 fL (81-99); MONOCYTES # (AUTO) 0.5 (0.2-0.8); NEUTROPHILS # (AUTO) 14.5 (2.1-6.9); NEUTROPHILS % 92.4 % (38.7-80.0); PLATELET COUNT 221 x10e3/uL (140-360); RED CELL DISTRIBUTION WIDTH 13.2 % (11.7-14.4)
[2020-01-14 16:05] LABS: INR 0.98; PROTHROMBIN TIME 13.6 seconds (11.9-14.5)
[2020-01-14 16:06] LABS: PARTIAL THROMBOPLASTIN TIME 29.5 seconds (23.8-35.5)
[2020-01-14 16:16] LABS: ALANINE AMINOTRANSFERASE 47 IU/L (0-55); ALBUMIN 3.4 g/dL (3.5-5.0); ALBUMIN/GLOBULIN RATIO 0.8 (0.8-2.0); ALKALINE PHOSPHATASE 100 IU/L (40-150); ANION GAP 15.8 mmol/L (8-16); BLOOD UREA NITROGEN 24 mg/dL (7-26); BUN/CREATININE RATIO 18 (6-25); CALCIUM 9.9 mg/dL (8.4-10.2); CARBON DIOXIDE 25 mmol/L (22-29); CHLORIDE 100 mmol/L (98-107); CREATINE KINASE 232 IU/L (30-200); CREATININE, SERUM 1.31 mg/dL (0.72-1.25); EST GLOMERULAR FILTRATION RATE 57 ML/MIN (60-); GLUCOSE 154 mg/dL (74-118); POTASSIUM 4.8 mmol/L (3.5-5.1); SODIUM 136 mmol/L (136-145)
[2020-01-14] MEDS ORDERED: SODIUM CHLORIDE 0.9% 1000ML 1,300 ML IV STA (16:16)
[2020-01-14] MEDS ORDERED: ACETAMINOPHEN 1000 MG/100 ML IV PRN (16:45)
[2020-01-14] MEDS ORDERED: ONDANSETRON HCL INJ 2MG/ML 2ML 2 MG/ML VIAL IV PRN (16:45)
[2020-01-14 16:50] LABS: CLARITY,URINE CLEAR (CLEAR); COLOR,URINE YELLOW (YELLOW); LEUKOCYTE ESTERASE ,URINE NEGATIVE (NEGATIVE); NITRITE,URINE NEGATIVE (NEGATIVE)
[2020-01-14 16:51] LABS: BACTERIA,URINE FEW /HPF; BILIRUBIN,URINE NEGATIVE (NEGATIVE); KETONES,URINE 1+ (NEGATIVE); PROTEIN,URINE DIPSTICK 1+ (NEGATIVE); RBC,URINE 0-5 /HPF (0-5); URINE UROBILINOGEN 2 mg/dL (0.2 - 1); WBC,URINE (MAN) 0-5 /HPF (0-5)
--- NOTE | 2020-01-14 17:24 | NUR ---
Monica Sandhu is emergency contact [phone]
[2020-01-14 17:47] LABS: LYMPHOCYTES % (MANUAL) 3 % (19-48); MONOCYTES % (MANUAL) 4 % (3.4-9.0); NEUTROPHILS % (MANUAL) 93 % (40-74); PLATELET MORPHOLOGY COMMENT NORMAL
[2020-01-14 17:48] LABS: PLATELET ESTIMATE ADEQUATE; RBC MORPHOLOGY COMMENT NORMAL
--- NOTE | 2020-01-14 18:00 | NUR ---
Dr. Sainz notified this RN that picc was cleared for use. Immediately restarted NS boluses, and IV abx.
[2020-01-14] MEDS ORDERED: DEXTROSE 50% SYRINGE 50 ML IV PRN (18:15)
--- NOTE | 2020-01-14 18:27 | Diagnostic Imaging Report ---
EXAMINATION: CHEST XRAY LINE PLACEMENT INDICATION: ^Y ^PICC line placement ^[id number] ^[id number] COMPARISON: 01/14/2020 FINDINGS: AP view TUBES and LINES: Interval placement of a right PICC which is difficult to visualize due to underpenetration but the tip appears to overlying the high SVC. LUNGS: Low lung volumes. Bilateral pulmonary edema. Bibasilar consolidations. PLEURA: No pleural effusion or pneumothorax. HEART AND MEDIASTINUM: Stable mild enlargement of the cardiac silhouette. BONES AND SOFT TISSUES: No acute osseous lesion. Soft tissues are unremarkable. UPPER ABDOMEN: No free air under the diaphragm. IMPRESSION: Interval placement of a right PICC which is difficult to visualize but the deep appears to overlying the high SVC. Recommend a more penetrated beam on subsequent chest x-ray. No pneumothorax. Otherwise, no interval change. Signed by: Dr. Laurie Palmer M.D. on 01/14/2020 6:23 PM
--- NOTE | 2020-01-14 18:40 | Consultation ---
DATE OF CONSULTATION: Pulmonary Critical Care Consultation CHIEF COMPLAINT: Fever. HISTORY OF PRESENT ILLNESS: The patient is a 54-year-old man. He has a history of diabetes. He also has a history of recurrent cellulitis of the left leg. He was hospitalized in March 2019 with left leg cellulitis and septic shock. He was hospitalized again in August 2019 with cellulitis. His cultures grew out group B strep. He required IV antibiotics and eventually went home. He now complains of recurrent fevers. He denies any cough or difficulty breathing. He did have some erythema and cellulitis in the left leg. PAST SURGICAL HISTORY: 1. Status post knee surgery. 2. Status post tonsillectomy. PAST MEDICAL HISTORY: 1. Diabetes mellitus. 2. Hypertension. 3. Atrial fibrillation. 4. Gastroesophageal reflux. ALLERGIES: THERE ARE NO KNOWN DRUG ALLERGIES. FAMILY HISTORY: Family history is significant for diabetes and hypertension. SOCIAL HISTORY: The patient is not an active smoker. He is not an active drinker[place] REVIEW OF SYSTEMS: He did have fevers. He has no headache. He is not having any neck pain. He denies sore throat. He is not having chest pain. He denies cough or difficulty breathing. He denies abdominal pain, nausea, vomiting. He does note some pain and swelling in his left leg. PHYSICAL EXAMINATION: VITAL SIGNS: The blood pressure is 148/54, saturation is 95% and the pulse rate is 98. His temperature is 103.3. HEENT: Shows no facial swelling or erythema. CARDIAC: Reveals regular rate and rhythm with normal S1 and S2. LUNGS: Auscultation of lungs reveals rhonchorous breath sounds bilaterally. There is no wheezing. ABDOMEN: Soft, nontender. There is no rebound or guarding. EXTREMITIES: Shows some erythema and tenderness in the left lower extremity and foot. NEUROLOGICAL: Shows no focal abnormalities. LABORATORY DATA: Creatinine is increased to 1.31 from a baseline of 0.84. Other electrolytes are within normal limits. Glucose is 258 and the lactic acid is 2.3. Albumin is 3.4. The white blood cell count is 15.7 and hemoglobin is 15.6. The platelet count is 221. RADIOGRAPHIC DATA: Chest x-ray shows some cardiomegaly and possibly some cephalization. IMPRESSION: 1. Recurrent left leg cellulitis with associated sepsis present on admission. 2. Acute kidney injury. 3. Diabetes. 4. Hypertension. 5. Paroxysmal atrial fibrillation. PLAN: 1. The patient will receive intravenous fluids. 2. Antibiotics. 3. Testing for coronavirus. 4. Monitor and control blood sugars. 5. Echocardiogram. 6. Antihypertensive regimen. MD JUANCARLOS Pierson/MODL /[id number]
[2020-01-14 19:45] VITALS: BP 150/73
[2020-01-14 20:00] VITALS: BP 169/77
--- NOTE | 2020-01-14 20:00 | NUR ---
Dr. Bryon Mcbride notified of pt's critically elevated lactic, ordered another liter bolus of NS and to recheck in 4 hours, notify MD if lactic increases again.
[2020-01-14] MEDS: FAMOTIDINE 20 MG/2 ML VIAL IV SCH (20:39)
[2020-01-14] MEDS: VANCOMYCIN 1GM/NS 250 ML 250 ML IV SCH (20:40)
[2020-01-14] MEDS: INSULIN LISPRO 100 UNIT/1 ML 3ML VIAL SQ SCH (20:40)
[2020-01-14] MEDS: ATORVASTATIN 40 MG TAB PO SCH (20:40)
[2020-01-14] MEDS ORDERED: SODIUM CHLORIDE 0.9% 1000ML 1,000 ML IV ONE (20:45)
[2020-01-14] MEDS: INSULIN GLARGINE 100 UNITS/ML VIAL SC SCH (20:54)
[2020-01-14 21:00] VITALS: BP 173/72
[2020-01-14] MEDS: PIPER-TAZ 3.375 GM 50 ML IV SCH (21:17)
[2020-01-14 22:00] VITALS: BP 179/73
[2020-01-14 23:00] VITALS: BP 139/66
[2020-01-15] VITALS (19 sets, daily range): BP systolic 111–170; BP diastolic 52–80
[2020-01-15 01:27] LABS: CREATINE KINASE 160 IU/L (30-200)
[2020-01-15] MEDS: FAMOTIDINE 20 MG/2 ML VIAL IV SCH (04:06)
[2020-01-15] MEDS: PIPER-TAZ 3.375 GM 50 ML IV SCH (04:06)
[2020-01-15] MEDS: VANCOMYCIN 1GM/NS 250 ML 250 ML IV SCH ×2 (05:50→17:43)
[2020-01-15 05:59] LABS: BASOPHILS % 0.1 % (0.0-1.0); HEMATOCRIT 42.4 % (38.2-49.6); HEMOGLOBIN 14.3 g/dL (14.0-18.0); LYMPHOCYTES # (AUTO) 0.8 (1.0-3.2); MEAN CORPUSCULAR HEMOGLOBIN 29.5 pg (28-32); MEAN CORPUSCULAR HGB CONC 33.7 g/dL (31-35); MEAN CORPUSCULAR VOLUME 87.4 fL (81-99); MONOCYTES # (AUTO) 0.6 (0.2-0.8); MONOCYTES % 3.3 % (4.4-11.3); NEUTROPHILS # (AUTO) 17.5 (2.1-6.9); NEUTROPHILS % 91.6 % (38.7-80.0); PLATELET COUNT 180 x10e3/uL (140-360); RED BLOOD COUNT 4.85 x10e6/uL (4.3-5.7); RED CELL DISTRIBUTION WIDTH 13.5 % (11.7-14.4)
[2020-01-15 06:29] LABS: CREATINE KINASE 170 IU/L (30-200)
--- NOTE | 2020-01-15 06:41 | Diagnostic Imaging Report ---
EXAMINATION: CHEST SINGLE (PORTABLE) INDICATION: Fever. COMPARISON: Chest radiograph 01/14/2020. FINDINGS: AP view Examination is limited by portable technique and low lung volumes. TUBES and LINES: Right right PICC with tip obscured, but possibly in the upper SVC. LUNGS: Low lung volumes. Bilateral perihilar and interstitial opacities. Patchy and linear bibasilar opacities. PLEURA: No pleural effusion or pneumothorax. HEART AND MEDIASTINUM: Stable mild enlargement of the cardiac silhouette. BONES AND SOFT TISSUES: No acute osseous lesion. Soft tissues are unremarkable. UPPER ABDOMEN: No free air under the diaphragm. IMPRESSION: Mild cardiomegaly and pulmonary interstitial edema. Bibasilar opacities, likely atelectasis, although infection is possible in the appropriate clinical setting. No new consolidation. Signed by: Dr. Dom Perez MD on 01/15/2020 6:38 AM
[2020-01-15 06:54] LABS: ALBUMIN 2.7 g/dL (3.5-5.0); ALBUMIN/GLOBULIN RATIO 0.6 (0.8-2.0); CALCIUM 8.7 mg/dL (8.4-10.2); CREATININE, SERUM 1.25 mg/dL (0.72-1.25)
[2020-01-15 07:11] LABS: BAND NEUTROPHILS % (MANUAL) 13 %; LYMPHOCYTES % (MANUAL) 1 % (19-48); MONOCYTES % (MANUAL) 2 % (3.4-9.0); NEUTROPHILS % (MANUAL) 84 % (40-74); NUCLEATED RED BLOOD CELLS 1; PLATELET ESTIMATE ADEQUATE; PLATELET MORPHOLOGY COMMENT NORMAL; RBC MORPHOLOGY COMMENT NORMAL
[2020-01-15] MEDS: INSULIN LISPRO 100 UNIT/1 ML 3ML VIAL SQ SCH ×4 (08:02→21:22)
[2020-01-15] MEDS: ASPIRIN 325 MG TAB PO SCH (08:25)
[2020-01-15] MEDS: DILTIAZEM HCL 180 MG CAP ER PO SCH (08:25)
[2020-01-15] MEDS: AMIODARONE HCL 200 MG TAB PO SCH (08:26)
[2020-01-15] MEDS ORDERED: FAMOTIDINE 20 MG TAB PO SCH (09:00)
--- NOTE | 2020-01-15 10:12 | NUR ---
INFECTIOUS DISEASE CONSULTATION CC: Left Leg Cellulitis, Pain and Erythema HPI: This is a very pleasant 54 year old male. The patient arrived to the ED with complaints of fevers and erythema to the left leg. The patient has a PMH of cellulitis to the left leg. The patient was previously hospitalized with Left le g cellulitis and septic shock in August. Cultures then grew group B strep. The patient denies cough or difficulty breathing. COVID19 PCR negative upon admission. PMH: T2DM, HTN, A-fib, GERD ROS: POSITIVE: erythema and LLE leg pain NEGATIVE: nausea, vomiting, chills, diarrhea, neck pain, chest pain ALL SYSTEMS REVIEWED AND NEGATIVE UNLESS OTHERWISE NOTED FAMILY HISTORY: not significant SOCIAL HISTORY: no smoking, no drinking[place] PHYSICAL EXAM: VS: TMAX: 103.3., 141/80, 94, 22, GENERAL: AAOx3 HEENT: normocephalic, non-icteric NECK: no JVD CV: s1, s2 without s3, s4 CHEST: Rhonchi, diminished ABD: soft, non-tender, no guarding EXT: shows erythema, tenderness to LLE PSYCH: intact NEURO: CN intact LABS: Reviewed RADIOLOGY: IMPRESSION: Mild cardiomegaly and pulmonary interstitial edema. Bibasilar opacities, likely atelectasis, although infection is possible in the appropriate clinical setting. No new consolidation. IMPRESSION: 1. Fever 2. Left Leg Cellulitis 3. ZUHAIR 4. T2DM 5. Paroxysmal AFIB 6. Leukocytosis 7. Sepsis on admission PLAN: 01/15/20 Patient currently on Vancomycin, add Cefepime. D/C Zosyn and Azithromycin. Left leg cellulitis, recurrent. Supportive care per critical care team. Recheck labs in AM. Pending blood and urine cultures. For now, we will plan for 5 days of IV Vanc and Cefepime. Vanc trough tomorrow. Thank you for the consult! Discussed with Dr. Gamble
[2020-01-15] MEDS ORDERED: CEFEPIME HCL 1 GM VIAL IV SCH (10:15)
[2020-01-15] MEDS: CEFEPIME 1GM/NS 0.9% 50 ML 50 ML IV SCH ×2 (11:30→23:15)
--- NOTE | 2020-01-15 14:38 | Progress Note ---
DATE: SUBJECTIVE: The patient's coronavirus is negative. He is afebrile. He does have some erythema and swelling of his left lower extremity. He complains of fatigue. PHYSICAL EXAMINATION: VITAL SIGNS: The patient is afebrile. The blood pressure is 149/61 and saturation is 94% on 3 L. HEENT: Shows no facial swelling or erythema. CARDIAC: Reveals a regular rate and rhythm with normal S1, S2. There are no murmurs or rubs heard. LUNGS: Ascultation of lungs reveals decreased breath sounds at the bases. There is no wheezing. ABDOMEN: Soft, nontender. There is no rebound or guarding. EXTREMITIES: Shows 1 to 2+ leg edema with some erythema. LABORATORY DATA: Creatinine is 1.25. Other electrolytes are within normal limits. IMPRESSION: 1. Cellulitis of the left lower extremity with associated sepsis present on admission. 2. Acute kidney injury. 3. Diabetes. 4. Hypertension. 5. Paroxysmal atrial fibrillation. PLAN: 1. Continue current intravenous fluids. 2. Continue antibiotics. 3. Monitor and control blood sugars. 4. Transfer out of intensive care unit today. Alonzo Mcbride MD [facility]/MODL /[id number]
--- NOTE | 2020-01-15 14:40 | NUR ---
PATIENT RECEIVED FROM ICU PER WHEEL CHAIR. ALERT AND VERBALLY RESPONSIVE. ASSISTED TO THE RESTROOM AND BACK TO RECLINING CHAIR. TELEMETRY [address]. REDNESS AND SWELLING TO LEFT LEG. RT CALLED FOR CPAP MACHINE AND O2 EXTENSION CORD. ALL PERSONAL ITEMS CLOSE TO PATIENT, CALL LIGHT AT REACH.
[2020-01-15] MEDS ORDERED: AZITHROMYCIN 500MG/NS 250 ML 250 ML IV SCH (16:00)
[2020-01-15] MEDS: ACETAMINOPHEN 325 MG TAB PO PRN ×2 (17:00→23:15)
[2020-01-15] MEDS: LACTOBACILLUS ACIDOPHILUS CAPSULE PO SCH (17:06)
[2020-01-15] MEDS: ENOXAPARIN SOD INJ 40 MG/0.4 ML SYR SC SCH (17:06)
[2020-01-15] MEDS ORDERED: SODIUM CHLORIDE 0.9% 250ML 250 ML ONE (17:40)
[2020-01-15] MEDS: ATORVASTATIN 40 MG TAB PO SCH (21:13)
[2020-01-15] MEDS: INSULIN GLARGINE 100 UNITS/ML VIAL SC SCH (21:19)
[2020-01-16] VITALS (8 sets, daily range): BP systolic 119–157; BP diastolic 56–82
[2020-01-16 05:36] LABS: BASOPHILS % 0.1 % (0.0-1.0); HEMATOCRIT 40.4 % (38.2-49.6); HEMOGLOBIN 13.1 g/dL (14.0-18.0); LYMPHOCYTES # (AUTO) 1.1 (1.0-3.2); LYMPHOCYTES % 7.5 % (18.0-39.1); MEAN CORPUSCULAR HEMOGLOBIN 28.7 pg (28-32); MEAN CORPUSCULAR HGB CONC 32.4 g/dL (31-35); MEAN CORPUSCULAR VOLUME 88.4 fL (81-99); MONOCYTES # (AUTO) 0.9 (0.2-0.8); MONOCYTES % 6.2 % (4.4-11.3); NEUTROPHILS # (AUTO) 12.7 (2.1-6.9); NEUTROPHILS % 85.6 % (38.7-80.0); PLATELET COUNT 132 x10e3/uL (140-360); RED BLOOD COUNT 4.57 x10e6/uL (4.3-5.7); RED CELL DISTRIBUTION WIDTH 13.4 % (11.7-14.4)
[2020-01-16] MEDS: VANCOMYCIN 1GM/NS 250 ML 250 ML IV SCH (06:00)
[2020-01-16] MEDS: ACETAMINOPHEN 325 MG TAB PO PRN (06:00)
[2020-01-16 06:19] LABS: BLOOD UREA NITROGEN 18 mg/dL (7-26); BUN/CREATININE RATIO 19 (6-25); CALCIUM 8.8 mg/dL (8.4-10.2); CARBON DIOXIDE 24 mmol/L (22-29); CHLORIDE 103 mmol/L (98-107); CREATININE, SERUM 0.95 mg/dL (0.72-1.25); EST GLOMERULAR FILTRATION RATE > 60 ML/MIN (60-); GLUCOSE 196 mg/dL (74-118); SODIUM 136 mmol/L (136-145)
[2020-01-16 06:58] LABS: BAND NEUTROPHILS % (MANUAL) 4 %; LYMPHOCYTES % (MANUAL) 8 % (19-48); MONOCYTES % (MANUAL) 5 % (3.4-9.0); NEUTROPHILS % (MANUAL) 82 % (40-74)
[2020-01-16 07:00] LABS: PLATELET ESTIMATE SLIGHTLY DECREASED; PLATELET MORPHOLOGY COMMENT NORMAL; RBC MORPHOLOGY COMMENT NORMAL
[2020-01-16] MEDS: INSULIN LISPRO 100 UNIT/1 ML 3ML VIAL SQ SCH ×4 (07:30→21:00)
[2020-01-16] MEDS: DILTIAZEM HCL 180 MG CAP ER PO SCH (10:02)
[2020-01-16] MEDS: LACTOBACILLUS ACIDOPHILUS CAPSULE PO SCH ×2 (10:02→16:48)
[2020-01-16] MEDS: AMIODARONE HCL 200 MG TAB PO SCH (10:02)
[2020-01-16] MEDS: ENOXAPARIN SOD INJ 40 MG/0.4 ML SYR SC SCH ×2 (10:02→16:48)
[2020-01-16] MEDS: ASPIRIN 325 MG TAB PO SCH (10:03)
--- NOTE | 2020-01-16 10:26 | Progress Note ---
DATE: SUBJECTIVE: The patient is seen and evaluated. Discussed with the nurse. Discussed with Dr. Gamble. REVIEW OF SYSTEMS: He remains with fever and left lower extremity cellulitis and pain. No cough. No shortness of breath. No diarrhea. No dysuria. MEDICATIONS: Medication list reviewed. As far as Infectious Disease point of view, the patient is on vancomycin IV and cefepime. LABORATORY STUDIES: White count of 14.78, improved from 19.14, hemoglobin 13.1. Platelets 132, dropped from 180. Toxicology and vancomycin trough 5.3 today. Serology COVID-19. PCR negative on 01/14/2020. Influenza A and B antigen negative. Group A strep screen negative. MICROBIOLOGY: Blood culture, urine culture, and throat culture all on 01/13 negative. Radiology studies, status post right upper extremity PICC line. Chest x-ray from yesterday showed mild cardiomegaly with pulmonary interstitial edema. Bibasilar opacities likely atelectasis, maybe some infection involved. There is no new consolidation. PHYSICAL EXAMINATION: VITAL SIGNS: Temperature is 99.7 with a maximum temperature of 100.9 in the past 48 hours. Overall, improvement from 103.3. Pulse is 88, respirations 20, blood pressure 138/61. GENERAL: Alert and oriented, sitting in a recliner, feet hanging, morbidly obese. No obvious sign of shortness of breath. Seems weak and ill. Overall, left lower extremity pain from foot to almost knee. CV: S1, S2. CHEST: Equal expansion. No acute distress. ABDOMEN: Obese, soft, nontender. HEENT: Moist. No pallor. No JVD. ASSESSMENT AND PLAN: 1. Fever, improved. Cultures negative so far. Radiology studies as above. 2. Cellulitis of left lower extremity. 3. Leukocytosis, improving. 4. Thrombocytopenia, worse today. 5. Morbid obesity. 6. Pain on the left leg due to cellulitis. 7. Acute kidney injury. Creatinine improved to 0.95. 8. Diabetes mellitus type 2. 9. Atrial fibrillation. 10. Sepsis, on admission. Please refer to chart for more information. Discussed with Dr. Gamble. Thank you for this dictation. Dictated by Bi Gunderson PA-C (Al) MD [facility]/ANL /[id number]
--- NOTE | 2020-01-16 11:00 | NUR ---
pt up to chair at lunch, no c/o pain, no distress noted.
--- NOTE | 2020-01-16 11:01 | Progress Note ---
DATE: ADDENDUM: The patient's antibiotic will be changed to clindamycin and monitor platelets. Dictated by Bi Kaminski) HAROLDO Gunderson MD [facility]/ANN-MARIE /[id number]
[2020-01-16] MEDS: CLINDAMYCIN PHOS 900MG/ 50ML 50 ML IV SCH ×2 (13:12→20:30)
[2020-01-16] MEDS ORDERED: ONDANSETRON HCL 4 MG ORAL DISINTEGRATING TAB PO PRN (15:15)
--- NOTE | 2020-01-16 19:23 | NUR ---
walking rounds complete, pt stable at shift change.
[2020-01-16] MEDS: ATORVASTATIN 40 MG TAB PO SCH (20:30)
[2020-01-16] MEDS: INSULIN GLARGINE 100 UNITS/ML VIAL SC SCH (21:00)
[2020-01-17] VITALS (7 sets, daily range): BP systolic 125–138; BP diastolic 59–73
[2020-01-17 04:22] LABS: BASOPHILS % 0.3 % (0.0-1.0); EOSINOPHILS % 0.1 % (0.0-6.0); HEMATOCRIT 40.8 % (38.2-49.6); HEMOGLOBIN 13.3 g/dL (14.0-18.0); LYMPHOCYTES # (AUTO) 1.6 (1.0-3.2); LYMPHOCYTES % 17.9 % (18.0-39.1); MEAN CORPUSCULAR HEMOGLOBIN 28.7 pg (28-32); MEAN CORPUSCULAR HGB CONC 32.6 g/dL (31-35); MEAN CORPUSCULAR VOLUME 88.1 fL (81-99); MONOCYTES % 11.7 % (4.4-11.3); NEUTROPHILS # (AUTO) 6.1 (2.1-6.9); NEUTROPHILS % 69.8 % (38.7-80.0); PLATELET COUNT 158 x10e3/uL (140-360); RED BLOOD COUNT 4.63 x10e6/uL (4.3-5.7); RED CELL DISTRIBUTION WIDTH 13.2 % (11.7-14.4)
[2020-01-17] MEDS: CLINDAMYCIN PHOS 900MG/ 50ML 50 ML IV SCH ×3 (04:23→20:40)
[2020-01-17] MEDS: INSULIN LISPRO 100 UNIT/1 ML 3ML VIAL SQ SCH ×4 (08:24→21:35)
[2020-01-17] MEDS: ASPIRIN 325 MG TAB PO SCH (08:39)
[2020-01-17] MEDS: LACTOBACILLUS ACIDOPHILUS CAPSULE PO SCH ×2 (08:40→17:58)
[2020-01-17] MEDS: ENOXAPARIN SOD INJ 40 MG/0.4 ML SYR SC SCH ×2 (08:40→17:58)
[2020-01-17] MEDS: AMIODARONE HCL 200 MG TAB PO SCH (08:40)
[2020-01-17] MEDS: DILTIAZEM HCL 180 MG CAP ER PO SCH (08:40)
--- NOTE | 2020-01-17 09:30 | NUR ---
The pt. is up on the chair and denies pain or discomfort.
--- NOTE | 2020-01-17 10:11 | Progress Note ---
DATE: SUBJECTIVE: The patient is seen and evaluated. Discussed with staff and discussed with Dr. Gamble. REVIEW OF SYSTEMS: Feels better. Fever and chills resolved. No nausea. No vomiting. No chest pain. No shortness of breath. Appetite improved. No diarrhea. No rash. No headache. No cough. OBJECTIVE: VITAL SIGNS: Temperature is 96.4, pulse is 65, respirations 20, and blood pressure 157/70. GENERAL: Alert and oriented, in no acute distress. CV: S1 and S2. CHEST: Equal expansion, clear to auscultation. No acute distress. ABDOMEN: Morbidly obese, soft, and nontender. EXTREMITIES: Left lower extremity cellulitis, improved in redness and edema. MEDICATIONS: Medication list reviewed. As far as Infectious Disease point of view, the patient is on clindamycin. LABORATORY STUDIES: White blood cells 8.7, improved from 19.14; hemoglobin is 13.3; and platelet 158, improving from 132. No BMP available. Vancomycin trough was 5.1, however, the patient is not on vancomycin IV. MICROBIOLOGY: Blood culture on 01/13, negative. Throat culture on 01/13, negative. Urine culture on 01/13, negative. RADIOLOGY STUDIES: No new radiology studies available. ASSESSMENT AND PLAN: 1. Cellulitis of the left lower extremity. 2. Morbid obesity. 3. Fever. 4. Leukocytosis, resolved. 5. Thrombocytopenia, improving. 6. Acute kidney injury. 7. Diabetes mellitus. 8. Atrial fibrillation. 9. Sepsis on admission, which has resolved. Continue with Cleocin, the patient has right upper extremity PICC line, we will set up the patient with outpatient IV antibiotic through Dr. Gamble's office for clindamycin 900 mg IV piggyback 3 times a day for a total of 2 weeks, pending approval for outpatient IV antibiotics. This case was discussed with Dr. Gamble and staff. Please refer to chart for more information. Dictated by Bi Gunderson PA-C (Al) Re Gamble MD /MODL /[id number]
--- NOTE | 2020-01-17 10:30 | NUR ---
Spoke with ALEKSANDAR Antony. States they are working on setting up IV abx thru Dr. Gamble's office.
--- NOTE | 2020-01-17 15:57 | NUR ---
Spoke with STEPH Morrison with Dr. Gamble. Pt's insurance is out of network with their office and he does not have out of network benefits. Spoke with Dr. Gamble for verification of home IV abx. Order entered into EMR. CM spoke to pt at bedside and informed him. States can use any infusion company in network with his insurance. Choice letter signed for [facility] - / . Informed pt that typically the infusion company will set up home health. Pt states he was fine with any company in network with his insurance. CM called and spoke to Lynette with intake at [facility]. States they will run pt's insurance and let CM know if they are in network. Referral faxed to [facility].
[2020-01-17] MEDS: DAPTOMYCIN 500mg 10ML 1,000 MG in SODIUM CHLORIDE 0.9% 100 ML IV SCH (17:58)
--- NOTE | 2020-01-17 19:05 | NUR ---
PATIENT RECEIVED. PATIENT IS AAOX3, RESTING IN BED. RESP EVEN AND UNLABORED. NO ACUTE DISTRESS NOTED AT THIS TIME. TELE IN PLACE. CALL LIGHT WITHIN REACH. INSTRUCT PATIENT TO CALL FOR ASSISTANCE. BED LOW/LOCKED. CONTINUE TO MONITOR CLOSELY
[2020-01-17] MEDS: INSULIN GLARGINE 100 UNITS/ML VIAL SC SCH (21:35)
[2020-01-17] MEDS: ATORVASTATIN 40 MG TAB PO SCH (21:46)
[2020-01-18] VITALS (9 sets, daily range): BP systolic 106–163; BP diastolic 52–90
[2020-01-18] MEDS: CLINDAMYCIN PHOS 900MG/ 50ML 50 ML IV SCH (04:15)
--- NOTE | 2020-01-18 07:26 | NUR ---
The pt. is in bed and denies comp at this time. He is hopeful for discharge home today.
[2020-01-18] MEDS: INSULIN LISPRO 100 UNIT/1 ML 3ML VIAL SQ SCH ×3 (08:14→17:15)
[2020-01-18] MEDS: DILTIAZEM HCL 180 MG CAP ER PO SCH (09:00)
[2020-01-18] MEDS: ASPIRIN 325 MG TAB PO SCH (09:00)
--- NOTE | 2020-01-18 09:30 | NUR ---
This nurse was changing the PICC line dressing and the gel mat was stuck and exited the room to get more equipment and asked to pt. to remain in position until I returned. Upon return to the room found the pt. holding the line with partial removed line in his hand. I spoke with JOHANA Castañeda who is rounding at the time and a xray was ordered and repositioning if needed.
--- NOTE | 2020-01-18 10:04 | Progress Note ---
DATE: SUBJECTIVE: The patient is seen and evaluated. REVIEW OF SYSTEMS: No nausea, vomiting, fever, chills, chest pain, shortness of breath, headache, dysuria, polyuria, rash. Discussed with the nurse. The patient pulled his PICC line out a little bit. OBJECTIVE: VITAL SIGNS: Temperature 96.5, pulse is 92, respirations 20, and blood pressure 169/83. GENERAL: Alert and oriented, in no acute distress, comfortable in recliner with feet hanging, otherwise against it. CV: S1 and S2. CHEST: Equal expansion, clear to auscultation. No acute distress. ABDOMEN: Soft and nontender. No distention. HEENT: Moist. No pallor. No JVD. EXTREMITIES: Left leg remains with swelling and redness, slightly improved overall, but no change from yesterday. The patient also has pulled the PICC line out a little bit, that is evident. MEDICATIONS: Medication list reviewed. As far as Infectious Disease point of view, the patient is on daptomycin 1 g daily and Cleocin. LABORATORY STUDIES: No new CBC or BMP. However, white count back to normal at 8.7 on 01/16. Toxicology noted. The patient is off vancomycin IV. SEROLOGY: COVID-19 negative on 01/13. Also, influenza type A and B antigen and group A Strep screen negative on 01/13. MICROBIOLOGY: Blood culture, urine culture, and throat culture all negative on 01/13. RADIOLOGY STUDIES: No new radiology studies available. ASSESSMENT AND PLAN: 1. A 54-year-old morbidly obese gentleman with left lower extremity cellulitis. 2. Leukocytosis, resolved. 3. Thrombocytopenia. 4. Acute kidney injury. 5. Diabetes mellitus. 6. Atrial fibrillation. 7. Sepsis, on admission. 8. Fever, resolved. The patient is currently on Cleocin and daptomycin. Please refer to chart for more information. Discussed with Dr. Gamble. We get PICC line team to evaluate position of the PICC line. Advised the patient to elevate his leg. Advised the patient to stop pulling out the PICC line. Unable to set the patient with IV antibiotic with Dr. Re Gamble, Infectious Disease, due to his insurance has not been out of network and no out of network benefits. manager marketing communication is in progress of sending the patient off with daptomycin 1 g IV piggyback daily as an outpatient for a total of 2 weeks. Discussed with Case Management, Donna. Please refer to chart for more information. Discussed with Dr. Gamble. Discussed with the nurse. Dictated by Bi Gunderson PA-C (Al) Re Gamble MD /ANN-MARIE /[id number]
[2020-01-18] MEDS: LACTOBACILLUS ACIDOPHILUS CAPSULE PO SCH ×2 (10:44→17:08)
[2020-01-18] MEDS: ENOXAPARIN SOD INJ 40 MG/0.4 ML SYR SC SCH ×2 (10:44→17:08)
[2020-01-18] MEDS: AMIODARONE HCL 200 MG TAB PO SCH (10:44)
--- NOTE | 2020-01-18 11:16 | Diagnostic Imaging Report ---
EXAMINATION: CHEST SINGLE (PORTABLE) INDICATION: PICC line placement. COMPARISON: Chest radiograph 01/15/2020. FINDINGS: Examination is somewhat limited by underpenetration and portable technique. TUBES and LINES: Right PICC has either been retracted or replaced, now terminating overlying the right distal axillary/proximal subclavian vein. LUNGS: Low lung volumes, with slightly increased aeration. Bilateral perihilar and interstitial opacities. Mild bibasilar opacities. PLEURA: No pleural effusion or pneumothorax. HEART AND MEDIASTINUM: Stable mild enlargement of the cardiac silhouette. Atherosclerotic calcifications of the aortic arch. BONES AND SOFT TISSUES: No acute osseous abnormality. UPPER ABDOMEN: No free air under the diaphragm. IMPRESSION: Right PICC has either been retracted or replaced, now terminating overlying the right distal axillary/proximal subclavian vein. Suggest clinical correlation and repositioning if indicated. Mild cardiomegaly and pulmonary interstitial edema. Bibasilar opacities, likely atelectasis, although infection is possible in the appropriate clinical setting. No new consolidation. Signed by: Dr. Dom Perez MD on 01/18/2020 11:12 AM
--- NOTE | 2020-01-18 13:37 | NUR ---
Signed order for IV abx faxed to [facility]. Charlotte RN with [facility] provided teaching at bedside. States they will be providing nursing care. Pt to receive evening dose of abx here and they will deliver medications tomorrow morning. CM spoke with pt at bedside. Pt states Charlotte gave him [facility] information to contact if needed.
--- NOTE | 2020-01-18 14:20 | Progress Note ---
DATE: SUBJECTIVE: The patient has no fever. He still has some pain and tenderness in his leg. He is eager to go home with IV antibiotics. PHYSICAL EXAMINATION: VITAL SIGNS: The patient is afebrile. The vital signs are stable. CARDIAC: Reveals a regular rate and rhythm with normal S1 and S2. LUNGS: Auscultation of lungs reveals clear breath sounds bilaterally. There is no wheezing. ABDOMEN: Soft and nontender. There is no rebound or guarding. EXTREMITIES: Shows leg edema. There is erythema in the right leg. LABORATORY DATA: White blood cell count is 8.7 and the hemoglobin is 13.3. The platelet count is 158. IMPRESSION: 1. Cellulitis with sepsis, present on admission. 2. Thrombocytopenia. 3. Acute kidney injury. 4. Diabetes. 5. Atrial fibrillation. PLAN: Continue current antibiotics. We are making arrangements for patient to go home with IV antibiotics through home health. Alonzo Mcbride MD [facility]/ANN-MARIE /[id number]
--- NOTE | 2020-01-18 14:27 | NUR ---
Reminded IR to call out the team for PICC line replacement or advance as necessary.
--- NOTE | 2020-01-18 15:35 | Discharge Summary ---
PRIMARY CARE DOCTOR: Dr. Ken Lyons. FINAL DIAGNOSIS: Sepsis, present on admission due to recurrent left leg cellulitis. SECONDARY DIAGNOSES: 1. Morbid obesity. 2. Paroxysmal atrial fibrillation. 3. Diabetes. CONSULTANTS: 1. Dr. Gamble, Infectious Disease. 2. Dr. Mcbride, Pulmonary. PROCEDURE/STUDIES PERFORMED: PICC line placement. HISTORY: Per [facility] HOSPITAL COURSE: With IV antibiotics his white count is normal now. His blood cultures are negative x2 at 72 hours. The patient will go home on daptomycin for two weeks. The patient will be taking probiotic. 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 The patient now received Lovenox twice a day for chemical DVT prophylaxis. I have updated the every day over the phone including today, which is the day of discharge. The patient was seen and examined today. It took 32 minutes total to discharge this patient. CONDITION ON DISCHARGE: Improved. DISCHARGE MEDICATIONS: Please see medication reconciliation form. MD MERVAT [facility]uleta/ANN-MARIE /[id number]
--- NOTE | 2020-01-18 18:55 | Diagnostic Imaging Report ---
EXAMINATION: CHEST XRAY LINE PLACEMENT INDICATION: PICC line placement. COMPARISON: Chest radiograph performed earlier same day FINDINGS: Examination is somewhat limited by underpenetration and portable technique. TUBES and LINES: Right PICC is faintly seen with the tip at the in SVC. LUNGS: Low lung volumes. Bilateral perihilar and interstitial opacities. PLEURA: No pleural effusion or pneumothorax. HEART AND MEDIASTINUM: Stable mild enlargement of the cardiac silhouette. Atherosclerotic calcifications of the aortic arch. BONES AND SOFT TISSUES: No acute osseous abnormality. UPPER ABDOMEN: No free air under the diaphragm. IMPRESSION: Right PICC in adequate location per Otherwise no significant change. Signed by: Bi Abernathy MD on 01/18/2020 6:51 PM
--- NOTE | 2020-01-18 19:10 | NUR ---
RECEIVED THE PATIENT IN REPORT.WAITING FOR ANTIBIOTIC ADMINISTERATION.
--- NOTE | 2020-01-18 19:30 | NUR ---
PICC LINE OK TO USE.ADMINISTERING.AAOX3.AMBULATES.NO RESP.DISTRESS.PHONE AND CALL LIGHT WITHIN REACH.INSTRUCTED TO CALL FOR ASSISTANCE NEEDED.CAN GO HOME AFTER COMPLETION OF ANTIBIOTIC.
[2020-01-18] MEDS: DAPTOMYCIN 500mg 10ML 1,000 MG in SODIUM CHLORIDE 0.9% 100 ML IV SCH (19:32)
--- NOTE | 2020-01-18 20:45 | NUR ---
DISCHARGE INSTRUCTION GIVEN.VERBALIZED UNDRSTANDING.GOING HOME WITH PICC LINE.ESCORTED TO THE [facility] IN A STABLE CONDIITON.
== END 2020-01-18 20:45 | disposition home health service (06) | DRG 872 ==
LOC: ER 13:48 → ERHOLD 16:43 → ICU 19:19 → MED/SURG2 01-15 14:29
PROVIDERS: ADMIT Internal Medicine; ATTEND Internal Medicine
PROC: 02HV33Z Insertion of Infusion Device into Superior Vena Cava, Percutaneous Approach (ICD-10-PCS; principal; 2020-01-14)
PROC: B548ZZA Ultrasonography of Superior Vena Cava, Guidance (ICD-10-PCS; 2020-01-14)
PROC: 02HV33Z Insertion of Infusion Device into Superior Vena Cava, Percutaneous Approach (ICD-10-PCS; 2020-01-18)
PROC: B548ZZA Ultrasonography of Superior Vena Cava, Guidance (ICD-10-PCS; 2020-01-18)
DX: A41.9 Sepsis, unspecified organism (principal); N17.9 Acute kidney failure, unspecified; L03.116 Cellulitis of left lower limb; Z68.43 Body mass index [BMI] 50.0-59.9, adult; R65.20 Severe sepsis without septic shock; E11.65 Type 2 diabetes mellitus with hyperglycemia; I48.0 Paroxysmal atrial fibrillation; E66.01 Morbid (severe) obesity due to excess calories; I10 Essential (primary) hypertension; E78.5 Hyperlipidemia, unspecified; K21.9 Gastro-esophageal reflux disease without esophagitis; Z83.3 Family history of diabetes mellitus; Z82.49 Family history of ischemic heart disease and other diseases of the circulatory system; D69.6 Thrombocytopenia, unspecified; Z11.59 Encounter for screening for other viral diseases; Z79.82 Long term (current) use of aspirin; Z79.4 Long term (current) use of insulin
CPT/HCPCS: 36415; 36569; 36584; 71045; 74470; 80048; 80053; 80202; 81001; 82550; 82553; 82948; 83518; 83605; 83735; 83880; 84484; 85025; 85610; 85730; 87040; 87070; 87086; 87400; 87635; 93005; 96372; 99284; J0456; J0692; J1650; J1815; J2405; J2543; J3370; J7030; J7050

== ENCOUNTER 2020-01-28 22:10 | Inpatient (IN) | payer OTHER ==
[~2020-01-28] VITALS: Ht 180.3 cm; Wt 194.6 kg
--- OUTSIDE RECORDS SUMMARY | 2020-01-28 22:13 | XMS REPORT | Clinical Summary ---
Author Author JANIE [facility] Organization [facility] Address Unknown Phone Unavailable Care Team Providers Care Music Theory Teacher Name Role Phone Eloy Ken Mcneil PCP Unavailable Allergies No Known Allergies Medications [...] Not on file Results Not on fileafter 01/27/2019 Insurance Payer Benefit Subscriber ID Type Phone Address Plan / Group [employer] - [employer] xxxxxxxxxxx HMO/POS NETWORK [id number]
[2020-01-28] MEDS ORDERED: PIPER-TAZ 3.375 GM 50 ML IV STA (22:25)
[2020-01-28] MEDS ORDERED: ACETAMINOPHEN 325 MG TAB PO STA ×2 (22:25→22:42)
[2020-01-28] MEDS ORDERED: SODIUM CHLORIDE 0.9% 1000ML 1,000 ML IV STA (22:25)
[2020-01-28] MEDS ORDERED: ONDANSETRON HCL INJ 2MG/ML 2ML 2 MG/ML VIAL IV STA (22:54)
[2020-01-28 23:35] LABS: BASOPHILS % 0.3 % (0.0-1.0); HEMATOCRIT 42.4 % (38.2-49.6); HEMOGLOBIN 13.3 g/dL (14.0-18.0); LYMPHOCYTES # (AUTO) 0.7 (1.0-3.2); LYMPHOCYTES % 5.7 % (18.0-39.1); MEAN CORPUSCULAR HEMOGLOBIN 27.8 pg (28-32); MEAN CORPUSCULAR HGB CONC 31.4 g/dL (31-35); MEAN CORPUSCULAR VOLUME 88.5 fL (81-99); MONOCYTES # (AUTO) 0.8 (0.2-0.8); MONOCYTES % 6.9 % (4.4-11.3); NEUTROPHILS # (AUTO) 10.2 (2.1-6.9); NEUTROPHILS % 86.6 % (38.7-80.0); PLATELET COUNT 294 x10e3/uL (140-360); RED BLOOD COUNT 4.79 x10e6/uL (4.3-5.7); RED CELL DISTRIBUTION WIDTH 13.3 % (11.7-14.4)
[2020-01-28 23:46] LABS: STREPTOCOCCUS GRP A ANTIGEN NEGATIVE (NEGATIVE)
[2020-01-28 23:55] LABS: ALBUMIN 2.5 g/dL (3.5-5.0); ALBUMIN/GLOBULIN RATIO 0.5 (0.8-2.0); ANION GAP 17.9 mmol/L (8-16); CREATININE, SERUM 1.62 mg/dL (0.72-1.25); POTASSIUM 3.9 mmol/L (3.5-5.1)
[2020-01-29] VITALS (8 sets, daily range): BP systolic 124–160; BP diastolic 60–96
[2020-01-29 00:02] LABS: CREATINE KINASE MB 1.5 ng/mL (0-5.0)
[2020-01-29 00:08] LABS: INFLUENZAE A&B ANTIGEN (RAPID) NEGATIVE (NEGATIVE)
[2020-01-29] MEDS ORDERED: ONDANSETRON HCL INJ 2MG/ML 2ML 2 MG/ML VIAL IV PRN (00:45)
--- OUTSIDE RECORDS SUMMARY | 2020-01-29 00:57 | XMS REPORT | Clinical Summary ---
Author Author JANIE [facility] Organization [facility] Address Unknown Phone Unavailable Care Team Providers Care Pile Driving Nozzleman Name Role Phone Eloy Ken Mcneil PCP [...] Not on file Results Not on fileafter 01/28/2019 Insurance Payer Benefit Subscriber ID Type Phone Address Plan / Group [employer] xxxxxxxxxxx HMO/POS NETWORK [id number]
[2020-01-29 01:11] LABS: BILIRUBIN,URINE NEGATIVE (NEGATIVE); CLARITY,URINE CLOUDY (CLEAR); COLOR,URINE YELLOW (YELLOW); KETONES,URINE NEGATIVE (NEGATIVE); LEUKOCYTE ESTERASE ,URINE NEGATIVE (NEGATIVE); NITRITE,URINE NEGATIVE (NEGATIVE); PROTEIN,URINE DIPSTICK >=300 (NEGATIVE); URINE UROBILINOGEN 0.2 mg/dL (0.2 - 1)
[2020-01-29] MEDS ORDERED: MORPHINE SULFATE INJ 4 MG/ML INJ 1ML IV PRN (01:15)
[2020-01-29 01:17] LABS: BACTERIA,URINE MANY /HPF; WBC,URINE (MAN) >50 /HPF (0-5)
[2020-01-29 01:18] LABS: EPITHELIAL CELLS,URINE MODERATE /LPF; MUCUS,URINE FEW (RARE); RBC,URINE >50 /HPF (0-5)
--- NOTE | 2020-01-29 01:45 | Diagnostic Imaging Report ---
EXAMINATION: CHEST SINGLE (PORTABLE) INDICATION: Fever, weakness, cough COMPARISON: Chest x-ray 01/18/2020 FINDINGS: TUBES and LINES: Right upper extremity PICC tip terminates at the superior cavoatrial junction. LUNGS: Low lung volumes. Prominent pulmonary vasculature. Perihilar/infrahilar haziness. PLEURA: No pleural effusion or pneumothorax. HEART AND MEDIASTINUM: Cardiac size is mildly enlarged. Aortic calcifications. BONES AND SOFT TISSUES: No acute osseous lesion. Soft tissues are unremarkable. UPPER ABDOMEN: No free air under the diaphragm. IMPRESSION: Limited evaluation due to portable AP technique. Mild cardiomegaly and pulmonary vascular congestion. Perihilar and infrahilar haziness can be due to suboptimal technique and low lung volumes/hypoaeration, although pneumonia is possible. Signed by: Panfilo Feliciano DO on 01/29/2020 1:41 AM
[2020-01-29] MEDS: SODIUM CHLORIDE 0.9% 1000ML 1,000 ML IV SCH ×2 (02:08→12:04)
[2020-01-29] MEDS ORDERED: SODIUM CHLORIDE 0.9% 1000ML 1,000 ML IV STA ×3 (02:42)
[2020-01-29] MEDS ORDERED: DEXTROSE 50% SYRINGE 50 ML IV PRN (04:00)
--- NOTE | 2020-01-29 05:00 | NUR ---
Patient received via stretcher from ER. AAO x 4. Patient had no complaints of pain. Respirations even and non-labored on 2L NC. Admission history obtained. Initial physical assessment performed. Patient oriented to room , call light and plan of care. Safety measures in place. Patient instructed to call for assistance when needed. Call light within reach.
--- NOTE | 2020-01-29 06:35 | NUR ---
Dr. Gamble paged regarding "Routine Consult". Spoke to Sully. Awaiting call back.
--- NOTE | 2020-01-29 06:55 | NUR ---
Received patient lying in bed with eyes closed. Respiration even and unlabored without SOB. Call light in reach.
--- NOTE | 2020-01-29 07:00 | NUR ---
Patient resting comfortably. Shift report given to oncoming nurse regarding patient's status.
[2020-01-29] MEDS ORDERED: INSULIN REGULAR, HUMAN 100 UNIT/1 ML 3ML VIAL SQ SCH (07:30)
[2020-01-29] MEDS ORDERED: VANCOMYCIN 1GM/NS 250 ML 250 ML IV ONE (09:15)
[2020-01-29 09:31] LABS: BASOPHILS % 0.3 % (0.0-1.0); HEMATOCRIT 36.7 % (38.2-49.6); HEMOGLOBIN 11.6 g/dL (14.0-18.0); LYMPHOCYTES # (AUTO) 0.8 (1.0-3.2); LYMPHOCYTES % 10.1 % (18.0-39.1); MEAN CORPUSCULAR HEMOGLOBIN 27.7 pg (28-32); MEAN CORPUSCULAR HGB CONC 31.6 g/dL (31-35); MEAN CORPUSCULAR VOLUME 87.6 fL (81-99); MONOCYTES # (AUTO) 0.6 (0.2-0.8); MONOCYTES % 8.1 % (4.4-11.3); NEUTROPHILS # (AUTO) 6.4 (2.1-6.9); NEUTROPHILS % 81.2 % (38.7-80.0); PLATELET COUNT 222 x10e3/uL (140-360); RED BLOOD COUNT 4.19 x10e6/uL (4.3-5.7); RED CELL DISTRIBUTION WIDTH 13.3 % (11.7-14.4)
[2020-01-29 09:41] LABS: ANION GAP 10.8 mmol/L (8-16); BLOOD UREA NITROGEN 23 mg/dL (7-26); BUN/CREATININE RATIO 24 (6-25); CALCIUM 7.3 mg/dL (8.4-10.2); CARBON DIOXIDE 22 mmol/L (22-29); CHLORIDE 110 mmol/L (98-107); CREATININE, SERUM 0.94 mg/dL (0.72-1.25); EST GLOMERULAR FILTRATION RATE > 60 ML/MIN (60-); GLUCOSE 142 mg/dL (74-118); POTASSIUM 3.8 mmol/L (3.5-5.1); SODIUM 139 mmol/L (136-145)
--- NOTE | 2020-01-29 10:18 | NUR ---
Pt. expressed no spiritual or emotional concerns at this time. All Source Analyst provided hospitality and information on how to reach product safety head, if needed. No need to follow at his time. FELIZ [facility]lain Spiritual Care Department O: [phone]
[2020-01-29] MEDS: ENOXAPARIN SOD INJ 40 MG/0.4 ML SYR SC SCH (10:57)
[2020-01-29] MEDS: INSULIN LISPRO 100 UNIT/1 ML 3ML VIAL SQ SCH ×3 (11:30→21:00)
[2020-01-29] MEDS ORDERED: CEFEPIME HCL 1 GM VIAL IV SCH (15:15)
--- NOTE | 2020-01-29 16:54 | Diagnostic Imaging Report ---
CT of the abdomen and pelvis, with contrast. History: Fever, septic shock. Comparison: None available. Technique: Multidetector CT scanning of the abdomen and pelvis was performed from the level of the lung bases to the inferior pubic rami after intravenous administration of contrast. Coronal and sagittal multiplanar reformations were obtained. RADIATION DOSE: Total DLP: 1542.64 mGy*cm Dose modulation, iterative reconstruction, and/or weight based adjustment of the mA/kV was utilized to reduce the radiation dose to as low as reasonably achievable. FINDINGS: Please note the examination is limited by the patient's body habitus extending out of the warhc-rd-eddo. The lung bases are grossly unremarkable. The imaged portion of the heart demonstrates no significant abnormalities. The liver is normal in size without evidence for focal abnormality. The gallbladder is unremarkable. There is no evidence for radiopaque stones, wall thickening, or pericholecystic fluid. There is no intra or extrahepatic biliary ductal dilatation. The stomach, spleen, pancreas, and bilateral adrenal glands are unremarkable. The kidneys are normal in size and location and enhance symmetrically. There is no evidence for hydronephrosis. No ureteral stone or dilatation is appreciated. The partially distended urinary bladder demonstrates no significant abnormalities. The prostate is grossly unremarkable. The abdominal aorta is normal course and caliber with scattered atherosclerotic calcifications. The IVC is unremarkable. Please note evaluation the bowel is limited without the use of enteric contrast material. The visualized loops of small and large bowel demonstrate no evidence of obstruction or inflammation. Diverticula are noted within the sigmoid colon without evidence for acute diverticulitis. The appendix is visualized and appears unremarkable. There is no ascites or intraperitoneal free air. No abnormally enlarged lymph nodes are identified within the abdomen or pelvis. Small fat-containing of local hernia noted. There are multilevel degenerative changes of the lumbar spine. The osseous structures otherwise no straight no evidence for acute fracture or destructive process. The extra perineal soft tissues are unremarkable. IMPRESSION: Limited examination secondary to the patient's body habitus. Allowing for limitations, no acute abdominopelvic process identified. Signed by: Dr. Juan Pablo Marin MD on 01/29/2020 4:50 PM
[2020-01-29] MEDS ORDERED: ENOXAPARIN SOD INJ 40 MG/0.4 ML SYR SC SCH (17:00)
[2020-01-29] MEDS ORDERED: METRONIDAZOLE 500MG/NS 100ML 100 ML IV SCH (17:00)
[2020-01-29] MEDS: CEFEPIME 1GM/NS 0.9% 50 ML 50 ML IV SCH (17:08)
--- NOTE | 2020-01-29 19:26 | NUR ---
Patient received lying in bed. AAO x 3. No acute distress noted. Fall precautions implemented. Patient instructed to call for assistance when needed. Call light within reach.
[2020-01-29] MEDS ORDERED: IOPAMIDOL 370 MG/ML 200 ML INFUS..BTL INJ ONE (21:23)
[2020-01-29] MEDS ORDERED: SODIUM CHLORIDE 0.9% 50ML 50 ML ONE (21:23)
[2020-01-29] MEDS: ATORVASTATIN 40 MG TAB PO SCH (21:39)
[2020-01-29] MEDS: ACETAMINOPHEN 325 MG TAB PO PRN (21:43)
[2020-01-30] VITALS (8 sets, daily range): BP systolic 120–181; BP diastolic 60–87
[2020-01-30] MEDS: SODIUM CHLORIDE 0.9% 1000ML 1,000 ML IV SCH ×2 (00:36→08:45)
[2020-01-30] MEDS: CEFEPIME 1GM/NS 0.9% 50 ML 50 ML IV SCH ×2 (00:45→08:09)
[2020-01-30 06:18] LABS: BASOPHILS % 0.7 % (0.0-1.0); EOSINOPHILS # (AUTO) 0.1 (0.0-0.4); EOSINOPHILS % 2.1 % (0.0-6.0); HEMATOCRIT 37.9 % (38.2-49.6); HEMOGLOBIN 12.3 g/dL (14.0-18.0); LYMPHOCYTES # (AUTO) 1.3 (1.0-3.2); LYMPHOCYTES % 23.2 % (18.0-39.1); MEAN CORPUSCULAR HEMOGLOBIN 27.9 pg (28-32); MEAN CORPUSCULAR HGB CONC 32.5 g/dL (31-35); MEAN CORPUSCULAR VOLUME 85.9 fL (81-99); MONOCYTES # (AUTO) 0.8 (0.2-0.8); MONOCYTES % 13.6 % (4.4-11.3); NEUTROPHILS # (AUTO) 3.4 (2.1-6.9); PLATELET COUNT 225 x10e3/uL (140-360); RED BLOOD COUNT 4.41 x10e6/uL (4.3-5.7); RED CELL DISTRIBUTION WIDTH 13.2 % (11.7-14.4)
[2020-01-30 06:52] LABS: ALANINE AMINOTRANSFERASE 46 IU/L (0-55); ALBUMIN 2.3 g/dL (3.5-5.0); ALBUMIN/GLOBULIN RATIO 0.5 (0.8-2.0); ALKALINE PHOSPHATASE 79 IU/L (40-150); ANION GAP 11.8 mmol/L (8-16); BLOOD UREA NITROGEN 13 mg/dL (7-26); BUN/CREATININE RATIO 15 (6-25); CALCIUM 8.7 mg/dL (8.4-10.2); CARBON DIOXIDE 25 mmol/L (22-29); CHLORIDE 103 mmol/L (98-107); CREATININE, SERUM 0.86 mg/dL (0.72-1.25); EST GLOMERULAR FILTRATION RATE > 60 ML/MIN (60-); GLUCOSE 195 mg/dL (74-118); POTASSIUM 3.8 mmol/L (3.5-5.1); SODIUM 136 mmol/L (136-145)
[2020-01-30] MEDS: PIOGLITAZONE HCL 15 MG TAB PO SCH (08:22)
[2020-01-30] MEDS: LOSARTAN POTASSIUM 100 MG TAB PO SCH (08:23)
[2020-01-30] MEDS: AMIODARONE HCL 200 MG TAB PO SCH (08:23)
[2020-01-30] MEDS: ASPIRIN 325 MG TAB PO SCH (08:23)
[2020-01-30] MEDS: ENOXAPARIN SOD INJ 40 MG/0.4 ML SYR SC SCH ×2 (08:24→21:00)
[2020-01-30] MEDS: HYDROCHLOROTHIAZIDE 25 MG TAB PO SCH (08:24)
[2020-01-30] MEDS: INSULIN LISPRO 100 UNIT/1 ML 3ML VIAL SQ SCH ×4 (08:40→21:00)
[2020-01-30] MEDS ORDERED: NON-FORMULARY MEDICATION (Losartan/Hydrochlorothiazide (Losartan-Hctz 100-25 Mg Tab) 1 TAB PO SCH (09:00)
[2020-01-30] MEDS ORDERED: DILTIAZEM HCL 180 MG CAP ER PO SCH (09:00)
[2020-01-30] MEDS ORDERED: VANCOMYCIN 1GM/NS 250 ML 250 ML IV SCH (12:00)
[2020-01-30] MEDS ORDERED: ONDANSETRON HCL 4 MG ORAL DISINTEGRATING TAB PO PRN (13:00)
--- NOTE | 2020-01-30 13:45 | NUR ---
Verbal order given by Dr. Gamble get a midline catheter for patient.
[2020-01-30] MEDS: MEROPENEM 1GM 100 ML IV SCH ×2 (14:00→21:00)
[2020-01-30] MEDS: INSULIN GLARGINE 100 UNITS/ML VIAL SQ SCH (14:30)
--- NOTE | 2020-01-30 14:40 | NUR ---
Right upper PICC discontinued per order. 45 cm catheter noted and tip intact. Occlusive dressing placed. No bleeding noted.
--- NOTE | 2020-01-30 16:09 | Consultation ---
DATE OF CONSULTATION: REASON FOR CONSULTATION: Fever. HISTORY OF PRESENT ILLNESS: This patient who is a 54-year-old male, history of morbidly obese patient who was recently in the hospital. The patient who had knee surgery, tonsillectomy, obesity, diabetes mellitus, hypertension, atrial fibrillation, left leg cellulitis. The patient was here, he was treated with IV antibiotic, a PICC line was inserted and discharged home. He is coming with fever and chills. So I am asked to see him. He is currently lying in bed, complaining of fever. PAST MEDICAL HISTORY: As above. PAST SURGICAL HISTORY: As above. ALLERGIES: NKA. SOCIAL HISTORY: There is no smoking, drug abuse or abuse. FAMILY HISTORY: Otherwise unremarkable. MEDICATIONS: The patient who is currently on insulin, hydrochlorothiazide, enoxaparin, Cozaar, diltiazem, aspirin, cefepime. PHYSICAL EXAMINATION: GENERAL: He is currently alert, oriented, obese. VITAL SIGNS: Stable, currently afebrile. He had fever earlier. HEENT: Not icteric. NECK: Supple. CHEST: Few crackles. COR: S1, S2. No S3, S4 or murmurs. ABDOMEN: Soft, obese. IMPRESSION: 1. Fever concerned about line infection, would recommend to put him on vancomycin and meropenem. Discontinue PICC line. Blood culture showing gram-variable rods. Await sensitivities. 2. Morbidly obese patient. 3. Cellulitis of the leg seems to be better. Bilateral lower extremities lymphedema. Recommend elastic stocking, knee high. 4. Hypertension. 5. Morbidly obese patient. 6. We will follow. MD JOANNA Elizondo/ANN-MARIE /[id number]
[2020-01-30] MEDS: ACETAMINOPHEN 325 MG TAB PO PRN (16:50)
--- NOTE | 2020-01-30 19:20 | NUR ---
Patient visited in room during nursing rounds. Patient alert and oriented x3. Ambulatory in room prn. Pt is morbidly obese and notable cellulitis particularly on left leg with discolorations. S/P midline placement on left upper arm. Call jenkins within reach. Will monitor pt closely.
--- NOTE | 2020-01-30 19:20 | NUR ---
Report given to lieutenant shift supervisor. Respiration even and unlabored without SOB. Call light in reach.
[2020-01-30] MEDS: ATORVASTATIN 40 MG TAB PO SCH (21:00)
[2020-01-30] MEDS: DILTIAZEM HCL 180 MG CAP ER PO SCH (21:00)
[2020-01-31] VITALS (8 sets, daily range): BP systolic 117–133; BP diastolic 56–75
[2020-01-31] MEDS: MEROPENEM 1GM 100 ML IV SCH (06:12)
--- NOTE | 2020-01-31 07:00 | NUR ---
BEDSIDE SHIFT REPORT RECEIVED FROM THE PHOTOGRAPHY INTERN RN. EDUCATED PT ABOUT FALL PRECAUTIONS. PT VERBALIZED UNDERSTANDING. CALL LIGHT WITH IN EASY REACH. INSTRUCTED PT TO USE CALL LIGHT FOR ALL THE NEEDS. BED IS LOW AND LOCKED. SIDE RAILS X2. PT DENIES NEEDS AT THIS TIME.
[2020-01-31] MEDS: INSULIN GLARGINE 100 UNITS/ML VIAL SQ SCH (09:00)
[2020-01-31] MEDS: ASPIRIN 325 MG TAB PO SCH (09:16)
[2020-01-31] MEDS: PIOGLITAZONE HCL 15 MG TAB PO SCH (09:16)
[2020-01-31] MEDS: DILTIAZEM HCL 180 MG CAP ER PO SCH ×2 (09:17→21:10)
[2020-01-31] MEDS: AMIODARONE HCL 200 MG TAB PO SCH (09:17)
[2020-01-31] MEDS: HYDROCHLOROTHIAZIDE 25 MG TAB PO SCH (09:17)
[2020-01-31] MEDS: ENOXAPARIN SOD INJ 40 MG/0.4 ML SYR SC SCH ×2 (09:21→21:10)
[2020-01-31] MEDS: LOSARTAN POTASSIUM 100 MG TAB PO SCH (09:26)
[2020-01-31] MEDS: INSULIN LISPRO 100 UNIT/1 ML 3ML VIAL SQ SCH ×4 (09:49→21:10)
[2020-01-31] MEDS: CEFTRIAXONE SOD 1 GM/NS 50 ML 50 ML IV SCH ×2 (10:44→21:54)
[2020-01-31] MEDS: CIPROFLOXACIN 500 MG TAB PO SCH ×2 (10:45→21:10)
--- NOTE | 2020-01-31 11:58 | Progress Note ---
DATE: SUBJECTIVE: The patient is seen and evaluated. Available labs and notes reviewed. Discussed with staff. REVIEW OF SYSTEMS: Feels better. Fever and chills are gone. No nausea, vomiting, chest pain, shortness of breath, headache, pain, or rash. PHYSICAL EXAMINATION: VITAL SIGNS: Temperature 98.3, improved from 102.3, pulse 69, respiration 18, and blood pressure 121/56. GENERAL: Alert and oriented, pleasant, no acute distress. CV: S1 and S2. CHEST: Equal expansion. Clear to auscultation. ABDOMEN: Obese, soft, and nontender. HEENT: Moist. No pallor. No JVD. EXTREMITIES: Left lower extremity cellulitis and edema, but no acute process. LABORATORY STUDIES: White blood cells 5.65, improved from 11.81 with a platelet count of 225. Creatinine is 0.86. No new CBC or BMP from today. Serology; coronavirus PCR 01/28/2020, not detected. Influenza type A and B antigen and group A strep screen 01/28/2020, negative so far. MICROBIOLOGY: Blood culture showed Serratia on both sets on 01/28/2020. Throat culture showed usual respiratory felice. RADIOLOGY STUDIES: CT of abdomen and pelvis on 01/29/2020, limited examination secondary to the patient's body habitus, however, no acute abdominopelvic process was identified. ASSESSMENT AND PLAN: 1. This is a pleasant 54-year-old gentleman, who was receiving IV antibiotics at home for cellulitis of left lower extremity, developed fever and chills, and reported to the hospital. PICC line removed. The patient is status post midline. Currently on Rocephin and Cipro p.o. Blood culture was Serratia, which is sensitive to Rocephin and ciprofloxacin. 2. Cellulitis of left lower extremity. 3. Obesity. 4. Hyperlipidemia. 5. Diabetes. 6. Hypertension. 7. Antibiotic changed to Cipro and Rocephin today. Discussed with Dr. Gamble. Further management of this patient is based on daily findings on laboratory and physical examination. Please refer to chart for more information. Dictated by Bi Gunderson PA-C (Al) Re Gamble MD /MODL /[id number]
[2020-01-31] MEDS ORDERED: INSULIN GLARGINE 100 UNITS/ML VIAL SQ ONE (14:45)
[2020-01-31] MEDS: LACTOBACILLUS ACIDOPHILUS CAPSULE PO SCH (16:49)
--- NOTE | 2020-01-31 19:05 | NUR ---
BEDSIDE SHIFT REPORT GIVEN TO THE HOSPITAL WELLNESS COORDINATOR RN. PT DENIED FURTHER NEEDS.
--- NOTE | 2020-01-31 19:15 | NUR ---
Received patient awake, not in distress, call light within easy reach, advised to call anytime when needed. Will continue to monitor patient
[2020-01-31] MEDS: ATORVASTATIN 40 MG TAB PO SCH (21:10)
[2020-02-01] VITALS: BP 127/86
[2020-02-01 04:00] VITALS: BP 112/50
--- NOTE | 2020-02-01 07:04 | NUR ---
bedside rounding done with dayshift RN, call light within easy reach
[2020-02-01] MEDS: INSULIN LISPRO 100 UNIT/1 ML 3ML VIAL SQ SCH ×2 (07:30→13:01)
[2020-02-01 08:00] VITALS: BP 122/48
[2020-02-01] MEDS ORDERED: INSULIN GLARGINE 100 UNITS/ML VIAL SQ SCH (09:00)
[2020-02-01 12:00] VITALS: BP 131/84
--- NOTE | 2020-02-01 12:09 | Progress Note ---
DATE: SUBJECTIVE: The patient is seen and evaluated. Available labs and notes reviewed. REVIEW OF SYSTEMS: Feels better. No nausea, vomiting, fever, chills, chest pain, shortness of breath, headache, rash, cough, or dysuria. OBJECTIVE: VITAL SIGNS: Temperature 97.8, pulse 64, respirations 19, and blood pressure 122/48. GENERAL: Alert and oriented, morbidly obese, comfortable in bed. CV: S1-S2. CHEST: Equal expansion. Clear to auscultation. ABDOMEN: Soft, nontender. No distention. HEENT: Moist. No pallor. No JVD. EXTREMITIES: Left lower extremity cellulitis, improving edema and erythema. The patient remains with the left upper extremity midline. MEDICATIONS: Infectious Disease point of view, the patient is on Rocephin and Cipro. LABORATORY STUDIES: No new CBC or BMP from today. MICROBIOLOGY: No new microbiology. RADIOLOGY: No new radiology. ASSESSMENT AND PLAN: 1. Fever and chills. 2. Bacteremia secondary to line infection. The line is exchanged. 3. Sepsis on admission. 4. Obesity. 5. Debility. 6. Recheck blood culture. It was Serratia. 7. Diabetes. 8. Hypertension. 9. Hyperlipidemia. Discharge planning noted for possibly today with oral antibiotics and follow up with Infectious Disease. Discussed with Dr. Gamble in details. Please refer to chart for more information. Dictated by Bi Gunderson PA-C (Al) Re Gamble MD /MODL /[id number]
[2020-02-01] MEDS: PIOGLITAZONE HCL 15 MG TAB PO SCH (12:50)
[2020-02-01] MEDS: LACTOBACILLUS ACIDOPHILUS CAPSULE PO SCH (12:51)
[2020-02-01] MEDS: CIPROFLOXACIN 500 MG TAB PO SCH (12:51)
[2020-02-01] MEDS: AMIODARONE HCL 200 MG TAB PO SCH (12:52)
[2020-02-01] MEDS: LOSARTAN POTASSIUM 100 MG TAB PO SCH (12:52)
[2020-02-01] MEDS: HYDROCHLOROTHIAZIDE 25 MG TAB PO SCH (12:53)
[2020-02-01] MEDS: DILTIAZEM HCL 180 MG CAP ER PO SCH (12:54)
[2020-02-01] MEDS: ENOXAPARIN SOD INJ 40 MG/0.4 ML SYR SC SCH (12:54)
[2020-02-01] MEDS: ASPIRIN 325 MG TAB PO SCH (12:57)
[2020-02-01] MEDS: CEFTRIAXONE SOD 1 GM/NS 50 ML 50 ML IV SCH (13:13)
[2020-02-01] MEDS ORDERED: CIPRO500 MG PO (15:42)
[2020-02-01 16:01] VITALS: BP 95/70
--- NOTE | 2020-02-01 18:36 | Discharge Summary ---
PRIMARY CARE DOCTOR: Dr. Ken Lyons. FINAL DIAGNOSIS: Severe sepsis due to Serratia septicemia, present on admission, likely due to PICC line infection. SECONDARY DIAGNOSES: 1. Mild acute kidney injury, resolved. 2. Paroxysmal atrial fibrillation, on aspirin only per [facility] classification control clerk. 3. Diabetes. 4. Hypertension. 5. Morbid obesity. CONSULTANTS: Dr. Gamble, Infectious Disease. PROCEDURES/STUDIES PERFORMED: Abdominal CT, which was unremarkable. HISTORY: Per [facility]. HOSPITAL COURSE: The patient was admitted. His blood culture grew Serratia, sensitive to Rocephin and ciprofloxacin. His PICC line was removed, the patient is doing much better. No fever. Creatinine normalized as well. Leukocytosis normalized as well. Initially, the patient was on meropenem. It escalated to IV Rocephin and p.o. Cipro. I have discussed this case with Dr. Gamble, Infectious Disease. The patient will go home on oral ciprofloxacin for two weeks. Has a new midline, will be removed. I have updated the at the bedside in details and I have also updated his primary care doctor. The patient received Lovenox twice a day for chemical DVT prophylaxis. The patient was seen and examined today, it took 35 minutes total to discharge this patient. CONDITION ON DISCHARGE: Improved. DISCHARGE MEDICATIONS: Please see medication reconciliation form. MD MERVAT Zuleta/ANN-MARIE /[id number] cc: [facility]
== END 2020-02-01 16:48 | disposition home or self-care (01) | DRG 314 ==
LOC: ER 22:10 → ERHOLD 01-29 00:53 → MED/SURG2 01-29 04:30
PROVIDERS: ADMIT Internal Medicine; ATTEND Internal Medicine
PROC: 02HV33Z Insertion of Infusion Device into Superior Vena Cava, Percutaneous Approach (ICD-10-PCS; principal; 2020-01-30)
PROC: B548ZZA Ultrasonography of Superior Vena Cava, Guidance (ICD-10-PCS; 2020-01-30)
DX: T80.211A Bloodstream infection due to central venous catheter, initial encounter (principal); A41.53 Sepsis due to Serratia; R65.20 Severe sepsis without septic shock; N17.9 Acute kidney failure, unspecified; L03.116 Cellulitis of left lower limb; Z68.43 Body mass index [BMI] 50.0-59.9, adult; I16.9 Hypertensive crisis, unspecified; Z83.3 Family history of diabetes mellitus; E66.01 Morbid (severe) obesity due to excess calories; I48.0 Paroxysmal atrial fibrillation; I10 Essential (primary) hypertension; R53.81 Other malaise; E78.5 Hyperlipidemia, unspecified; E11.65 Type 2 diabetes mellitus with hyperglycemia; Z11.59 Encounter for screening for other viral diseases; Z79.82 Long term (current) use of aspirin; Z79.4 Long term (current) use of insulin
CPT/HCPCS: 36415; 71045; 74177; 80048; 80053; 81001; 82550; 82553; 82948; 83518; 83605; 84484; 85025; 87040; 87070; 87071; 87186; 87205; 87400; 87635; 93005; 96372; 99284; J0692; J0696; J1650; J1815; J2405; J2543; J3370; J7030; Q9967

== ENCOUNTER 2020-03-07 11:45 | Inpatient (IN) | payer OTHER ==
[~2020-03-07] VITALS: Ht 180.3 cm; Wt 184.8 kg
[~2020-03-07 11:45] MED LIST changes: +CIPRO500 MG PO
[2020-03-07] MEDS ORDERED: CEFEPIME HCL 1 GM VIAL IV STA (12:01)
[2020-03-07] MEDS ORDERED: SODIUM CHLORIDE 0.9% 1000ML 1,000 ML IV STA (12:01)
[2020-03-07 12:46] LABS: BASOPHILS % 0.2 % (0.0-1.0); EOSINOPHILS % 0.1 % (0.0-6.0); HEMOGLOBIN 13.8 g/dL (14.0-18.0); LYMPHOCYTES # (AUTO) 1.1 (1.0-3.2); LYMPHOCYTES % 5.8 % (18.0-39.1); MEAN CORPUSCULAR HEMOGLOBIN 27.4 pg (28-32); MEAN CORPUSCULAR HGB CONC 32.1 g/dL (31-35); MEAN CORPUSCULAR VOLUME 85.5 fL (81-99); MONOCYTES # (AUTO) 0.8 (0.2-0.8); MONOCYTES % 4.5 % (4.4-11.3); NEUTROPHILS # (AUTO) 16.4 (2.1-6.9); NEUTROPHILS % 88.9 % (38.7-80.0); PLATELET COUNT 266 x10e3/uL (140-360); RED BLOOD COUNT 5.03 x10e6/uL (4.3-5.7)
--- NOTE | 2020-03-07 12:52 | NUR ---
green banded for vistor per policy
[2020-03-07 13:03] LABS: ALANINE AMINOTRANSFERASE 38 IU/L (0-55); ALBUMIN 3.1 g/dL (3.5-5.0); ALBUMIN/GLOBULIN RATIO 0.6 (0.8-2.0); ALKALINE PHOSPHATASE 96 IU/L (40-150); ANION GAP 20.2 mmol/L (8-16); BLOOD UREA NITROGEN 26 mg/dL (7-26); BUN/CREATININE RATIO 22 (6-25); CARBON DIOXIDE 18 mmol/L (22-29); CHLORIDE 102 mmol/L (98-107); CREATINE KINASE 157 IU/L (30-200); CREATININE, SERUM 1.19 mg/dL (0.72-1.25); EST GLOMERULAR FILTRATION RATE > 60 ML/MIN (60-); GLUCOSE 138 mg/dL (74-118); POTASSIUM 4.2 mmol/L (3.5-5.1); SODIUM 136 mmol/L (136-145)
[2020-03-07] MEDS: CEFEPIME 1GM/NS 0.9% 50 ML 50 ML IV SCH ×2 (13:10→20:22)
--- NOTE | 2020-03-07 13:20 | NUR ---
green sheet sepsis on chart per policy
[2020-03-07] MEDS ORDERED: VANCOMYCIN 1GM/NS 250 ML 250 ML IV STA (13:28)
--- NOTE | 2020-03-07 13:36 | NUR ---
MOVED TO ROOM 9; ISOLATION. NOW PUI. PLACED ON O2 NC AT 4 LPM D/T SATS 93 % WITH CRISP WAVE FORM AND CORROSPONDING HEART AND PULSE RATE. REMAINS TACHYPNENIC. PUI SWAB DONE. NOTIFIED OF ALL FINDINGS.
--- NOTE | 2020-03-07 13:42 | NUR ---
2ND LACTIC ACID DONE
--- NOTE | 2020-03-07 13:48 | Diagnostic Imaging Report ---
EXAMINATION: CHEST SINGLE (PORTABLE) INDICATION: Fever COMPARISON: Chest radiograph 01/28/2020 FINDINGS: LINES/TUBES:EKG leads overlie the chest. LUNGS:The lungs are well-inflated. No focal consolidation or pulmonary edema. PLEURA:No pleural effusion or pneumothorax. MEDIASTINUM:The cardiomediastinal silhouette appears normal in size and shape. BONES/SOFT TISSUES:No acute osseous injury. ABDOMEN:No free air under the diaphragm. IMPRESSION: No focal pneumonia or pulmonary edema. Signed by: Daphne Garza MD on 03/07/2020 1:45 PM
--- NOTE | 2020-03-07 13:50 | Emergency Department Note ---
History of Present Illnes History of Present Illness Chief Complaint: General Medicine Complaints History of Present Illness This is a 54 year old male arrives to the ED complaining of left lower leg cellulitis that is worsening. Patient states the last time this happened he wasn't sepsis. Patient states pain is worsening and came to the ER to be admitted.. Chief Complaint Comment WHILE AT WORK LAST NIGHT BEGAN HAVING CHILLS, BODY ACHES, PAIN. ALSO NOTED LEFT LOWER LEG CELLULITIS. PATIENT STATES "I AM IN SEPSIS" C/O OF NAUSEA Historian: Patient Arrival Mode: Car Additional Treatment GEOSPATIAL TECHNICIAN: NONE Storeroom Keeper Required: No Onset (how long ago): day(s) Radiation: Reports non-radiation Severity: moderate Onset quality: gradual Duration (how long): day(s) Progression: worsening Relieving factors: none Exacerbating factors: none Associated symptoms: Reports fever/chills Past Medical/Family History Physician Review I have reviewed the patient's past medical and family history. Any updates have been documented here. Past Medical History Recent Fever: No Clinical Suspicion of Infectio: No New/Unexplained Change in Ment: No Past Medical History: Hypertension, Diabetes, A-Fib, Hyperlipedemia Other Medical History: MORBID OBESITY CELLULITIS SEPSIS Past Surgical History: T&A Other Surgery: RIGHT KNEE REPAIR I&D TO NECK - 2013 Social History Smoking Cessation: Former smoker Any Illegal Drug Use: No TB Exposure/Symptoms: No Physically hurt or threatened: No Family History Family history of heart diseas: Yes Other Last Tetanus: UTD Review of Systems Review of Systems Constitutional: Reports as per HPI, Reports chills, Reports diaphoresis, Reports fever EENTM: Reports no symptoms Cardiovascular: Reports no symptoms Respiratory: Reports no symptoms Gastrointestinal: Reports no symptoms Genitourinary: Reports no symptoms Musculoskeletal: Reports no symptoms, Reports joint pain, Reports joint swelling Integumentary: Reports change in color Neurological: Reports no symptoms Psychological: Reports no symptoms Endocrine: Reports no symptoms Hematological/Lymphatic: Reports no symptoms Physical Exam Related Data Allergies: Coded Allergies: No Known Allergies (Unverified , 03/07/20) Triage Vital Signs Vital Signs Date Time Temp Pulse Resp B/P (MAP) Pulse Ox O2 Delivery O2 Flow Rate FiO2 03/07/20 12:02 99.1 115 20 157/74 97 Vital signs reviewed: Yes Physical Exam CONSTITUTIONAL Constitutional: Present morbidly obese, Present ill appearing HENT HENT: Present normocephalic, Present atraumatic, Present oropharynx clear/moist, Present nose normal HENT L/R: Present left ext ear normal, Present right ext ear normal EYES Eyes: Reports PERRL, Reports conjunctivae normal NECK Neck: Present ROM normal PULMONARY Pulmonary: Present respiratory distress CARDIOVASCULAR Cardiovascular: Present regular rhythm, Present heart sounds normal, Present capillary refill normal, Present normal rate GASTROINTESTINAL Abdominal: Present soft, Present nontender, Present bowel sounds normal GENITOURINARY Genitourinary: Present exam deferred SKIN Skin: Present warm, Present dry MUSCULOSKELETAL Musculoskeletal: Present ROM normal NEUROLOGICAL Neurological: Present alert, Present oriented x 3, Present no gross motor or sensory deficits PSYCHOLOGICAL Psychological: Present mood/affect normal, Present judgement normal Results Laboratory Result Diagram: 03/07/20 1228 03/07/20 1228 Laboratory Laboratory Tests Test 03/07/20 12:28 White Blood Count 18.49 x10e3/uL (4.8-10.8) Red Blood Count 5.03 x10e6/uL (4.3-5.7) Hemoglobin 13.8 g/dL (14.0-18.0) Hematocrit 43.0 % (38.2-49.6) Mean Corpuscular Volume 85.5 fL (81-99) Mean Corpuscular Hemoglobin 27.4 pg (28-32) Mean Corpuscular Hemoglobin Concent 32.1 g/dL (31-35) Red Cell Distribution Width 14.0 % (11.7-14.4) Platelet Count 266 x10e3/uL (140-360) Neutrophils (%) (Auto) 88.9 % (38.7-80.0) Lymphocytes (%) (Auto) 5.8 % (18.0-39.1) Monocytes (%) (Auto) 4.5 % (4.4-11.3) Eosinophils (%) (Auto) 0.1 % (0.0-6.0) Basophils (%) (Auto) 0.2 % (0.0-1.0) Neutrophils # (Auto) 16.4 (2.1-6.9) Lymphocytes # (Auto) 1.1 (1.0-3.2) Monocytes # (Auto) 0.8 (0.2-0.8) Eosinophils # (Auto) 0.0 (0.0-0.4) Basophils # (Auto) 0.0 (0.0-0.1) Absolute Immature Granulocyte (auto 0.10 x10e3/uL (0-0.1) Sodium Level 136 mmol/L (136-145) Potassium Level 4.2 mmol/L (3.5-5.1) Chloride Level 102 mmol/L (98-107) Carbon Dioxide Level 18 mmol/L (22-29) Anion Gap 20.2 mmol/L (8-16) Blood Urea Nitrogen 26 mg/dL (7-26) Creatinine 1.19 mg/dL (0.72-1.25) Estimat Glomerular Filtration Rate > 60 ML/MIN (60-) BUN/Creatinine Ratio 22 (6-25) Glucose Level 138 mg/dL (74-118) Lactic Acid Level 3.7 mmol/L (0.5-2.0) Calcium Level 9.0 mg/dL (8.4-10.2) Total Bilirubin 0.6 mg/dL (0.2-1.2) Aspartate Amino Transf (AST/SGOT) 23 IU/L (5-34) Alanine Aminotransferase (ALT/SGPT) 38 IU/L (0-55) Alkaline Phosphatase 96 IU/L (40-150) Creatine Kinase 157 IU/L (30-200) Creatine Kinase MB 1.60 ng/mL (0-5.0) Troponin I 0.004 ng/mL (0-0.300) Total Protein 8.3 g/dL (6.5-8.1) Albumin 3.1 g/dL (3.5-5.0) Globulin 5.2 g/dL (2.3-3.5) Albumin/Globulin Ratio 0.6 (0.8-2.0) Lab results reviewed: Yes Imaging Imaging results reviewed: Yes Procedures 12 Lead ECG Interpretation ECG Interpretation : ECG: ECG 1 Prior ECG tracings: reviewed Rhythm: sinus tachycardia QRS axis: extreme Conduction: incomplete RBBB T waves normal: Yes Clinical Impression: normal ECG Critical Care Time Total Critical Care Time (min): 45 Critcal care necessary due to: sepsis Comments Critical care time based on severe sepsis start time of 1313 Assessment & Plan Medical Decision Making MDM Severe Sepsis Time: 1313 1. Source (time: 1202) On arrival lower extremity cellulitis) 2. SIRS (time: 1327) increased RR and HR 3. Organ Dysfunction: Lactic acidosis (time: 1313) Interventions: Blood cultures collected Lactic acid collected Broad Spectrum antibiotics given Lactic acid #1: 3.7 (time resulted 1313) Lactic acid #2: (time resulted) During ED stay patient noted to be more tachypnea and hypoxic, there is concerns of possible Covid 19 related illness. Patient was placed as a PUI and covid swab sent. Assessment & Plan Final Impression: (1) Cellulitis of left leg (2) Severe sepsis Depart Disposition: ADMITTED Last Vital Signs Date Time Temp Pulse Resp B/P (MAP) Pulse Ox O2 Delivery O2 Flow Rate FiO2 03/07/20 12:02 99.1 115 20 157/74 97 Home Meds Active Scripts Diltiazem Hcl (CARDIZEM LA) 180 Mg Tabcr, 180 MG PO DAILY for 30 Days Prov:SHELLY SAENZ 04/16/15 Reported Medications Famotidine (FAMOTIDINE) 20 Mg Tab, 10 MG PO DAILY, #30 TAB 09/18/19 Insulin Detemir (LEVEMIR) 100 Unit/1 Ml Vial, 100 MG SC HS 09/18/19 Dulaglutide (Trulicity) 0.75 Mg/0.5 Ml Pen.injctr, 0.75 MG SQ Q7D 09/18/19 Amiodarone Hcl (AMIODARONE HCL) 200 Mg Tablet, 200 MG PO DAILY 09/18/19 Metformin Hcl (METFORMIN HCL) 500 Mg Tablet, 1000 MG PO DAILY, #60 TAB 02/22/19 Insulin Lispro (HUMALOG) 100 Unit/1 Ml Insuln.pen 02/22/19 [testosterone 50mg/5G] No Conflict Check 02/22/19 Pioglitazone Hcl (PIOGLITAZONE HCL) 45 Mg Tablet, 15 MG PO DAILY, #30 TAB 02/22/19 Losartan/Hydrochlorothiazide (LOSARTAN-HCTZ 100-25 MG TAB) 1 Each Tablet, 1 TAB PO DAILY 02/22/19 Acetaminophen With Codeine (TYLENOL WITH CODEINE #3 TABLET) 1 Each Tablet, 300 MG PO PRN, TAB 02/22/19 Aspirin (ASPIRIN) 325 Mg Tablet, 325 MG PO DAILY, #30 TAB 02/22/19 Atorvastatin Calcium (ATORVASTATIN CALCIUM) 20 Mg Tablet, 40 MG PO HS, #30 TAB 02/22/19 Discontinued Reported Medications Ciprofloxacin Hcl (CIPRO) 500 Mg Tablet, 500 MG PO BID for 14 Days, #30 TAB 02/01/20 Medications in the ED Cefepime HCl 1 gm Q12H STAT IV ; Start 03/07/20 at 12:01; Stop 03/07/20 at 12:02; Status UNV Sodium Chloride 1,000 ml @ 0 mls/hr Q0M STAT IV Last administered on 03/07/20at 13:10; Admin Dose 1,000 MLS/HR; Start 03/07/20 at 12:01; Stop 03/07/20 at 12:14; Status DC Cefepime HCl 50 ml @ 100 mls/hr Q12HR IV Last administered on 03/07/20at 13:10; Admin Dose 100 MLS/HR; Start 03/07/20 at 13:00; Stop 03/14/20 at 12:59 Vancomycin HCl 250 ml @ 0 mls/hr NOW STAT IV ; Start 03/07/20 at 13:18; Stop 03/07/20 at 13:19; Status UNV DARNELL CHURCHILL DO Mar 07, 2020 13:49
[2020-03-07 13:59] LABS: COLOR,URINE YELLOW (YELLOW)
[2020-03-07 14:00] LABS: CLARITY,URINE SL CLOUDY (CLEAR); LEUKOCYTE ESTERASE ,URINE SMALL (NEGATIVE); NITRITE,URINE NEGATIVE (NEGATIVE); PROTEIN,URINE DIPSTICK 2+ (NEGATIVE)
[2020-03-07 14:01] LABS: BACTERIA,URINE RARE /HPF; BILIRUBIN,URINE NEGATIVE (NEGATIVE); EPITHELIAL CELLS,URINE FEW /LPF; KETONES,URINE TRACE (NEGATIVE); URINE UROBILINOGEN 1 mg/dL (0.2 - 1)
--- NOTE | 2020-03-07 16:10 | NUR ---
PT REFUSED URINAL, PT INSISTED ON RESTROOM. PT ASSISTED TO RESTROOM. PT UPSET NOT ABLE TO STAY UNTIL R/O COVID. PT STATES HE NEEDS PENIS HELD DURING VOIDING AND MUST USE RESTROOM SINCE NOT HERE. PT REFUSED TO STAND AT BEDSIDE AND VOID IN URINAL, BEDSIDE COMMODE, [facility] NURSE NOTIFIED OF EVENTS.
[2020-03-07 16:20] LABS: ABG HCO3 23 mmol/L (22-26); ABG PCO2 33 mmHg (35-45); ABG PH 7.45 (7.35-7.45); ABG PO2 66 mmHg (80-105)
[2020-03-07] MEDS: INSULIN REGULAR, HUMAN 100 UNIT/1 ML 3ML VIAL SQ SCH ×2 (16:30→23:17)
[2020-03-07] MEDS ORDERED: ACETAMINOPHEN 325 MG TAB PO PRN (16:30)
[2020-03-07] MEDS ORDERED: DEXTROSE 50% SYRINGE 50 ML IV PRN (16:30)
[2020-03-07 17:45] VITALS: BP 134/59
[2020-03-07 18:00] VITALS: BP 134/59
--- NOTE | 2020-03-07 18:14 | NUR ---
RECEIVED REPORT FROM IMAN Marcelino RN.- PATIENT ARRIVED TO THE UNIT @ 1731 VIA STRETCHER. PATIENT IN STABLE CONDITION, NO S/S OF DISTRESS NOTED. LEFT EXTERNAL JUGULAR IV SITE NOTED WITH TRANSPARENT DRESSING C/D/I. TELEMETRY APPLIED WITH CONTINUOUS PULSE OX APPLIED. BED IN LOWEST POSITION AND LOCKED. CALL LIGHT WITHIN REACH FLUIDS AT BEDSIDE.
[2020-03-07 20:00] VITALS: BP 164/62
[2020-03-07] MEDS ORDERED: SODIUM CHLORIDE 0.9% 250ML 250 ML ONE (20:19)
[2020-03-07] MEDS: ATORVASTATIN 40 MG TAB PO SCH (20:22)
[2020-03-07 21:00] VITALS: BP 164/62
[2020-03-07] MEDS: SODIUM CHLORIDE 0.9% 1000ML 1,000 ML IV SCH (23:19)
[2020-03-07] MEDS: LOSARTAN POTASSIUM 100 MG TAB PO SCH (23:19)
[2020-03-08] VITALS (9 sets, daily range): BP systolic 108–172; BP diastolic 59–83
[2020-03-08] MEDS: VANCOMYCIN 1GM/NS 250 ML 250 ML IV SCH ×2 (02:00→14:20)
--- NOTE | 2020-03-08 04:27 | History and Physical ---
PRIMARY CARE PHYSICIAN: Dr. Lyons at [facility]. CHIEF COMPLAINT: Fever and chills due to left lower extremity pain and redness. HISTORY OF PRESENT ILLNESS: This is a 54-year-old male with past medical history of hypertension, atrial fibrillation, high cholesterol, diabetes type 2, and morbid obesity, presented to the ER with complaints of chills, body aches, left lower leg redness and edema. He reports noted the chills yesterday after work. He has had the redness in the lower extremities and previous cellulitis, but did not think much of it. This morning, complained of nausea and increased body aches and chills, so he presented to the ER for further evaluation. He denies any chest pain, shortness of breath, cough, vomiting, dysuria, dizziness, ill-contacts, or hematuria. In the ER, he was noted to have low-grade fever with tachycardia. Lactic acid of 3.7 and WBC of 18.49. Chest x-ray showed no focal pneumonia or pulmonary edema. He is admitted for further management. PAST MEDICAL HISTORY: 1. Hypertension. 2. Atrial fibrillation. 3. High cholesterol. 4. Diabetes type 2. 5. Morbid obesity. PAST SURGICAL HISTORY: None. FAMILY MEDICAL HISTORY: He reports both parents have diabetes. SOCIAL HISTORY: He denies any tobacco, alcohol, or illicit drug use. ALLERGIES: NO KNOWN DRUG ALLERGIES. REVIEW OF SYSTEMS: Twelve-system reviewed and negative except as reported in HPI. PHYSICAL EXAMINATION: VITAL SIGNS: Temperature 99.6, pulse is 109, respirations 20, blood pressure 163/61, pulse ox is 99% on room air. GENERAL: Chills and fatigue. HEENT: Normocephalic and atraumatic. NECK: Supple. LUNGS: Decreased breath sounds. CARDIOVASCULAR: Tachycardia. GI: Soft and nontender. Obese. NEUROLOGIC: Alert, awake, and oriented x3. MUSCULOSKELETAL: Moves all extremities. Left lower extremity edema, redness, and pain noted. SKIN: Dry. PSYCH: Calm. LABORATORY DATA: WBC 18.49, hemoglobin 13.8, hematocrit 43, platelets 266. Sodium 136, potassium 4.2, CO2 18, BUN 26 and creatinine 1.19, glucose 138. Lactic acid 3.7, trended down to 1.6. AST 23, ALT 38, troponin 0.004, albumin 3.1. Urine, slightly cloudy with 6-10 K wbc's and rare bacteria. Coronavirus PCR is pending. Chest x-ray, no focal pneumonia or pulmonary edema. IMPRESSION: 1. Sepsis due to left lower extremity cellulitis, present on admission. WBC 18.4. Lactic acid 3.7, trended down to 1.6. Culture sent, we will continue with cefepime and vancomycin 1 g b.i.d. We will continue with IV fluid hydration either. 2. Hypertension. We will resume losartan and HCTZ. 3. History of atrial fibrillation. We will continue amiodarone p.o. daily. . 4. Cholesterol. Continue statin. 5. Diabetes type 2. We will continue and sliding scale insulin coverage. 6. Deep vein thrombosis prophylaxis. . Heparin subcu. PLAN: To continue IV antibiotics, supportive care, await on cultures and continue IV antibiotics. Dictated by AGUSTIN Aguayo Kalina Sanchez MD MY/MODL /[id number]
[2020-03-08] MEDS: INSULIN REGULAR, HUMAN 100 UNIT/1 ML 3ML VIAL SQ SCH ×4 (07:30→22:18)
[2020-03-08] MEDS: PIOGLITAZONE HCL 15 MG TAB PO SCH (08:37)
[2020-03-08] MEDS: ASPIRIN 325 MG TAB PO SCH (08:37)
[2020-03-08] MEDS: CEFEPIME 1GM/NS 0.9% 50 ML 50 ML IV SCH ×2 (08:37→22:00)
[2020-03-08] MEDS: PANTOPRAZOLE SOD 40 MG TABEC PO SCH (08:37)
[2020-03-08] MEDS: SODIUM CHLORIDE 0.9% 1000ML 1,000 ML IV SCH (08:37)
[2020-03-08] MEDS: LOSARTAN POTASSIUM 100 MG TAB PO SCH (08:38)
[2020-03-08] MEDS: AMIODARONE HCL 200 MG TAB PO SCH (08:38)
[2020-03-08] MEDS ORDERED: FAMOTIDINE 20 MG TAB PO SCH (09:00)
--- NOTE | 2020-03-08 09:25 | NUR ---
PATIENT RECEIVED FROM OBS PER WHEEL CHAIR. ALERT AND VERBALLY RESPONSIVE. ASSISTED SELF TO RECLINING CHAIR. REDNESS AND SWELLING TO LOWER EXTREMITIES. TELEMETRY BOX IN PLACE WITH CONTINUOUS PULSE OX. ALL PERSONAL ITEMS CLOSE TO PATIENT, CALL LIGHT AT REACH.
[2020-03-08 11:35] LABS: BASOPHILS # (AUTO) 0.1 (0.0-0.1); BASOPHILS % 0.3 % (0.0-1.0); HEMOGLOBIN 12.5 g/dL (14.0-18.0); LYMPHOCYTES # (AUTO) 1.6 (1.0-3.2); MEAN CORPUSCULAR HEMOGLOBIN 27.5 pg (28-32); MEAN CORPUSCULAR HGB CONC 32.1 g/dL (31-35); MEAN CORPUSCULAR VOLUME 85.7 fL (81-99); MONOCYTES # (AUTO) 1.3 (0.2-0.8); MONOCYTES % 7.7 % (4.4-11.3); NEUTROPHILS # (AUTO) 13.4 (2.1-6.9); NEUTROPHILS % 81.5 % (38.7-80.0); PLATELET COUNT 196 x10e3/uL (140-360); RED BLOOD COUNT 4.55 x10e6/uL (4.3-5.7); RED CELL DISTRIBUTION WIDTH 14.4 % (11.7-14.4)
--- NOTE | 2020-03-08 11:50 | NUR ---
PATIENT SITTING AT BED SIDE EATING LUNCH, REQUESTED AND RECEIVED A CUP OF ICE. CALL LIGHT AT REACH.
[2020-03-08 11:58] LABS: ALANINE AMINOTRANSFERASE 26 IU/L (0-55); ALBUMIN 2.4 g/dL (3.5-5.0); ALBUMIN/GLOBULIN RATIO 0.5 (0.8-2.0); ALKALINE PHOSPHATASE 78 IU/L (40-150); ANION GAP 10.7 mmol/L (8-16); BLOOD UREA NITROGEN 25 mg/dL (7-26); BUN/CREATININE RATIO 22 (6-25); CALCIUM 8.7 mg/dL (8.4-10.2); CARBON DIOXIDE 25 mmol/L (22-29); CHLORIDE 99 mmol/L (98-107); CREATININE, SERUM 1.13 mg/dL (0.72-1.25); EST GLOMERULAR FILTRATION RATE > 60 ML/MIN (60-); GLUCOSE 235 mg/dL (74-118); POTASSIUM 3.7 mmol/L (3.5-5.1); SODIUM 131 mmol/L (136-145)
--- NOTE | 2020-03-08 15:14 | NUR ---
MD IN TO SEE PATIENT, NO NEW ORDER RECEIVED.
--- NOTE | 2020-03-08 15:45 | NUR ---
Nutrition Screen Note RD Recommendation for Physician: -Recommend cardiac/1800 ADA diet Plan of Care: RD following, monitoring for tolerance and adequacy Nutrition reason for involvement: Nutrition Risk Trigger MST 5 Primary Diagnose(s): sepsis PMH: afib, high cholesterol, type 2 diabetes, obesity Ht: 71 in Wt:429 lb BMI: 59.8 kg/m2 IBW:[address] Assessment: (03/08/20) Chart reviewed. Labs and meds reviewed. Pt is a 54 year old male admitted with sepsis. Pt reports eating <50% since yesterday, but had been eating well prior to admission. Pt stated he usually weighs 417 lbs; however, but currently has a weight of 429 lbs in chart. No N/V/D/C or chewing/swallowing issues. Will continue to monitor Current Diet: cardiac Malnutrition Evaluation (03/08/20) The patient does not meet criteria for a specified degree of malnutrition at this time. Will re-evaluate at follow-up as appropriate. Diet Education Needs Assessment: Pt declined the need for diet education at time of visit Nutrition Care Level: low Signed: Wendy Jarquin, RD, LD
--- NOTE | 2020-03-08 17:15 | Progress Note ---
DATE: 03/08/2020 SENIOR MEDIA PLANNER: Dr. Gamble with Infectious Disease. CHIEF COMPLAINT: Fever, chills, left lower extremity pain, swelling and redness. SUBJECTIVE: The patient is seen, sitting up in recliner. He was sleepy. Reports he did not sleep overnight. He denies any chest pain, shortness of breath, fever, chills. at the bedside. Left lower extremity with now oozing clear fluid. PHYSICAL EXAMINATION: VITAL SIGNS: Temperature 98.7, pulse is 78, respirations 16, blood pressure 120/59, pulse ox 95 percent on room air. GENERAL: Not in acute distress, fatigued. HEENT: Normocephalic and atraumatic. NECK: Supple. LUNGS: Decreased breath sounds. CARDIOVASCULAR: Regular rate and rhythm. GI: Soft and nontender, obese. NEUROLOGIC: Alert, awake, and oriented x3. MUSCULOSKELETAL: Moves all extremities. Left lower extremity edema, redness, draining clear fluid. PSYCH: Calm. LABORATORY DATA: WBC 16.42, hemoglobin 12.5, hematocrit 39, platelets 196. Sodium 131, potassium 3.7, CO2 of 25, BUN is 25, creatinine 1.13, estimated GFR is greater than 60. AST 16, ALT 26. Coronavirus PCR is not detected. Blood culture negative. Preliminary venous Doppler is negative. IMPRESSION: 1. Sepsis, present on admission due to left lower extremity cellulitis. WBC 16.4. Lactic acid 1.6. Blood culture is negative. We will continue with cefepime and vancomycin. ID has been consulted. Continue IV fluid hydration. 2. Hypertension, we will continue on Losartan and HCTZ. 3. History of atrial fibrillation. We will continue amiodarone p.o. daily and not on anticoagulation. 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 4. High cholesterol, on statin. 5. Diabetes type 2, we will continue Actos and sliding scale insulin coverage. 6. Morbid obesity, lifestyle modification advised. 7. DVT prophylaxis, heparin subcu. PLAN: Continue IV antibiotics, venous Doppler preliminary is negative for DVT. Dictated by AGUSTIN Aguayo Gladisching Braulio Sanchez MD MY/MODL /[id number]
[2020-03-08] MEDS: ENOXAPARIN SOD INJ 40 MG/0.4 ML SYR SC SCH (18:43)
--- NOTE | 2020-03-08 19:30 | NUR ---
Patient visited in room during nursing rounds. Patient alert and oriented x3. Ambulatory in room prn. Swelling and redness noted on bilateral legs (below knee areas). Pt on scheduled IV antibiotics (Maxipime and Vancomycin). Pt denies any pain or discomfort at this time. Call jenkins within reach. Will monitor pt closely.
--- NOTE | 2020-03-08 21:36 | Consultation ---
DATE OF CONSULTATION: HISTORY OF PRESENT ILLNESS: Mr. Sandhu is a 54-year-old morbidly obese patient with hypertension, atrial fibrillation, hypercholesteremia, diabetes mellitus type 2, comes in with redness and swelling of his legs, fever, and chills, started few days ago. He does have history of callus on the foot, which he has been dealing with last some time. He comes in with redness and swelling of his leg. The patient is being admitted. LABORATORY STUDIES: White count 16.4, hemoglobin 12. COVID-19 is negative. Sodium 131, potassium 3.7, and creatinine 1.13. PAST MEDICAL HISTORY: As above. PAST SURGICAL HISTORY: As above. ALLERGIES: NKA. SOCIAL HISTORY: There is no smoking, drug abuse, or alcohol abuse. PHYSICAL EXAMINATION: GENERAL: Currently, alert and oriented, does not seem to be in acute distress. VITAL SIGNS: Stable, afebrile. HEENT: He is not icteric. NECK: Supple. CHEST: Clear. EXTREMITIES: On the leg, there is erythema. There is edema involving the whole leg. IMPRESSION: Cellulitis of the leg, morbidly obese patient. Continue vancomycin. Continue cefepime. We will obtain trough. Keep the leg elevated. Await blood cultures. Reassess in the morning. Diabetes mellitus, obesity, neuropathy morbidly obese patient. We will follow with you. MD JOANNA Elizondo/ANN-MARIE /[id number]
[2020-03-08] MEDS ORDERED: SODIUM CHLORIDE 0.9% 250ML 250 ML ONE (22:08)
[2020-03-08] MEDS: ATORVASTATIN 40 MG TAB PO SCH (22:18)
[2020-03-09] VITALS (8 sets, daily range): BP systolic 125–158; BP diastolic 58–72
[2020-03-09] MEDS: VANCOMYCIN 1GM/NS 250 ML 250 ML IV SCH ×2 (02:20→14:48)
--- NOTE | 2020-03-09 07:00 | NUR ---
received bedside report. pt is alert sitting in bedside recliner, no s/s of distress. call light is within reach of the patient, instructed pt to call RN for help. pt is requesting tylenol, will check MAR
[2020-03-09] MEDS: PIOGLITAZONE HCL 15 MG TAB PO SCH (08:05)
[2020-03-09] MEDS: ENOXAPARIN SOD INJ 40 MG/0.4 ML SYR SC SCH ×2 (08:05→17:06)
[2020-03-09] MEDS: AMIODARONE HCL 200 MG TAB PO SCH (08:05)
[2020-03-09] MEDS: PANTOPRAZOLE SOD 40 MG TABEC PO SCH (08:05)
[2020-03-09] MEDS: ASPIRIN 325 MG TAB PO SCH (08:05)
[2020-03-09] MEDS: LOSARTAN POTASSIUM 100 MG TAB PO SCH (08:05)
[2020-03-09] MEDS: INSULIN REGULAR, HUMAN 100 UNIT/1 ML 3ML VIAL SQ SCH ×4 (08:15→21:10)
[2020-03-09] MEDS: CEFEPIME 1GM/NS 0.9% 50 ML 50 ML IV SCH ×2 (09:50→21:50)
[2020-03-09] MEDS ORDERED: FUROSEMIDE INJ 10 MG/ML 4 ML VIAL IV ONE (14:30)
--- NOTE | 2020-03-09 14:59 | Progress Note ---
DATE: 03/09/2020 CONSULTANTS: 1. Re Gamble M.D., Infectious Disease. 2. Mik Sexton DPM, Podiatry. CHIEF COMPLAINT: Fever, chills, and left lower extremity redness and swelling. SUBJECTIVE: The patient is much more awake and alert. Sitting up in a chair, with spouse at the bedside. He denies any chest pain, shortness of breath, nausea, or vomiting. Left lower extremity redness is might be improved. PHYSICAL EXAMINATION: VITAL SIGNS: Temperature 98.4, pulse is 74, respirations 18, blood pressure 129/69, and pulse ox is 96% on room air. GENERAL: In no acute distress, morbidly obese. HEENT: Normocephalic, atraumatic. NECK: Supple. LUNGS: Clear to auscultation. CARDIOVASCULAR: Regular rate and rhythm. GI: Soft and nontender. Obese. NEUROLOGIC: Alert, awake, and oriented x3. MUSCULOSKELETAL: Moves all extremities. Left lower extremity with edema and redness. PSYCH: Calm. IMPRESSION: 1. Sepsis present on admission due to left lower extremity cellulitis. We will continue on cefepime and vancomycin. Blood culture pending, ID has been consulted. Venous Doppler negative. 2. Hypertension. Continue on losartan and HCTZ. 3. Atrial fibrillation. We will continue on amiodarone. 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 4. High cholesterol, on statin. 5. Diabetes, type 2. Continue Actos and sliding scale insulin coverage. 6. Morbid obesity with a BMI of 59.8. Discussed lifestyle modification. 7. Deep vein thrombosis prophylaxis. Lovenox b.i.d. 8. Left second toe ulcer. We will consult Podiatry for evaluation. Not draining. PLAN: To continue IV antibiotics and repeat labs in a.m. Dictated by AGUSTIN Aguayo Kalina Sanchez MD MY/MODL /[id number]
--- NOTE | 2020-03-09 15:58 | NUR ---
doing better leg still red PHYSICAL EXAMINATION: VITAL SIGNS: Temperature 98.4, pulse is 74, respirations 18, blood pressure 129/69, and pulse ox is 96% on room air. GENERAL: In no acute distress, morbidly obese. HEENT: Normocephalic, atraumatic. NECK: Supple. LUNGS: Clear to auscultation. CARDIOVASCULAR: Regular rate and rhythm. GI: Soft and nontender. Obese. NEUROLOGIC: Alert, awake, and oriented x3. MUSCULOSKELETAL: Moves all extremities. Left lower extremity with edema and redness. PSYCH: Calm. IMPRESSION: cellulitis r leg cont iv abx may need to go home with iv abx obesity sleep apna
--- NOTE | 2020-03-09 20:20 | NUR ---
Assessment done.no resp.distress.no pain voiced.bed locked and in lowest position.call light within reach.instructed to call for assistance as needed.stable condition.
[2020-03-09] MEDS: ATORVASTATIN 40 MG TAB PO SCH (22:00)
[2020-03-10] VITALS (8 sets, daily range): BP systolic 125–142; BP diastolic 59–77
[2020-03-10] MEDS: VANCOMYCIN 1GM/NS 250 ML 250 ML IV SCH ×2 (02:32→15:57)
[2020-03-10 06:09] LABS: BASOPHILS % 0.2 % (0.0-1.0); EOSINOPHILS # (AUTO) 0.1 (0.0-0.4); EOSINOPHILS % 0.6 % (0.0-6.0); HEMATOCRIT 37.2 % (38.2-49.6); HEMOGLOBIN 12.2 g/dL (14.0-18.0); LYMPHOCYTES # (AUTO) 2.3 (1.0-3.2); LYMPHOCYTES % 28.4 % (18.0-39.1); MEAN CORPUSCULAR HEMOGLOBIN 28.7 pg (28-32); MEAN CORPUSCULAR HGB CONC 32.8 g/dL (31-35); MEAN CORPUSCULAR VOLUME 87.5 fL (81-99); MONOCYTES # (AUTO) 0.8 (0.2-0.8); MONOCYTES % 10.5 % (4.4-11.3); NEUTROPHILS # (AUTO) 4.8 (2.1-6.9); NEUTROPHILS % 59.8 % (38.7-80.0); PLATELET COUNT 198 x10e3/uL (140-360); RED BLOOD COUNT 4.25 x10e6/uL (4.3-5.7); RED CELL DISTRIBUTION WIDTH 13.9 % (11.7-14.4)
[2020-03-10 06:34] LABS: BLOOD UREA NITROGEN 15 mg/dL (7-26); BUN/CREATININE RATIO 17 (6-25); CALCIUM 8.7 mg/dL (8.4-10.2); CARBON DIOXIDE 26 mmol/L (22-29); CHLORIDE 103 mmol/L (98-107); CREATININE, SERUM 0.88 mg/dL (0.72-1.25); EST GLOMERULAR FILTRATION RATE > 60 ML/MIN (60-); GLUCOSE 201 mg/dL (74-118); SODIUM 135 mmol/L (136-145)
--- NOTE | 2020-03-10 07:01 | NUR ---
Bed side shift report given to oncoming Rn.stable condition.
[2020-03-10] MEDS: INSULIN REGULAR, HUMAN 100 UNIT/1 ML 3ML VIAL SQ SCH ×4 (07:30→21:05)
[2020-03-10] MEDS: LOSARTAN POTASSIUM 100 MG TAB PO SCH (08:15)
[2020-03-10] MEDS: AMIODARONE HCL 200 MG TAB PO SCH (08:15)
[2020-03-10] MEDS: ASPIRIN 325 MG TAB PO SCH (08:15)
[2020-03-10] MEDS: PANTOPRAZOLE SOD 40 MG TABEC PO SCH (08:15)
[2020-03-10] MEDS: PIOGLITAZONE HCL 15 MG TAB PO SCH (08:15)
[2020-03-10] MEDS: CEFEPIME 1GM/NS 0.9% 50 ML 50 ML IV SCH ×2 (08:15→21:03)
[2020-03-10] MEDS: ENOXAPARIN SOD INJ 40 MG/0.4 ML SYR SC SCH ×2 (08:15→15:58)
--- NOTE | 2020-03-10 10:36 | Consultation ---
DATE OF CONSULTATION: 03/10/2020 HISTORY OF PRESENT ILLNESS: This is a 54-year-old male with past medical history of type 2 diabetes, peripheral neuropathy, hypertension, atrial fibrillation, who was admitted to the emergency room 2 days ago for worsening redness and swelling to his left lower extremity. The patient relates that he has been admitted previously for this problem at different locations in the past few years. The patient relates that he was worked 3 days ago and noticed increased redness and swelling to his left lower extremity, and was presented to the emergency room with nausea and vomiting with fever. The patient relates that he thinks that he may have had a cut on his left 2nd toe. Podiatry being consulted for the ulceration on the left 2nd toe. The patient currently denies nausea, vomiting, fever, chills, chest pain, or shortness of breath. PAST MEDICAL HISTORY: Type 2 diabetes, peripheral neuropathy, hypertension, atrial fibrillation. MEDICATIONS: Per the chart. ALLERGIES: NO KNOWN DRUG ALLERGIES. PAST SURGICAL HISTORY: Right knee repair, incision and drainage tonight. SOCIAL HISTORY: The patient denies drinking. Has a prior history of smoking. Denies any illicit drug usage. PHYSICAL EXAMINATION: GENERAL: Alert and oriented x3, in no apparent distress. VITAL SIGNS: Today; temperature 97.4, heart rate 76, respiratory rate 18, blood pressure 139/71, and pulse ox 97% on room air. PROBLEM FOCUSED LOWER EXTREMITY PHYSICAL EXAMINATION: Vascular; dorsalis pedis and posterior tibial pulses are faintly palpable. Capillary refill time is 3 to 4 seconds in all remaining digits. Significant erythema, edema, and warmth are noted to the midshaft of the left tibia. No erythema, edema noted to the foot or toes on the left 2nd digit. NEUROLOGICAL: Sensation is diminished to light touch bilateral. MUSCULOSKELETAL: Pain on palpation to the left lower extremity. Negative pain on palpation of the left 2nd toe. DERMATOLOGICAL: No open ulcerations are noted to the distal tibia. A superficial previously healed laceration with hyperkeratotic tissues noted to the plantar aspect of the patient's left 2nd digit. Negative erythema, edema, or warmth without drainage is noted to the left 2nd digit. LABORATORY DATA: White blood cell count is 8.02, down from 16.4; hemoglobin 12.2, hematocrit 37.2, and platelet count 198. Sodium 135, potassium 4.0, chloride 103, CO2 of 26, BUN 15, creatinine 0.8, and glucose 201. Coronavirus not detected. Venous Doppler negative for DVT. Blood culture positive for gram-positive cocci in pairs. ASSESSMENT: 1. Left lower extremity edema with cellulitis. 2. Left 2nd toe ulceration. 3. Type 2 diabetes, peripheral neuropathy. 4. Hypertension. 5. Obesity. PLAN: The patient was seen and evaluated. Discussed condition and treatment options with the patient in detail. Discussed with patient that left 2nd toe ulceration appears stable and appears as though there was a previous laceration, which is scabbed over with hyperkeratotic tissue, it is very dry and appears to have fissured. Would recommend antibiotic when in a Band-Aid and we will consider debridement while an inpatient. We will order an antibiotic ointment and a Band-Aid dressing changes daily. I discussed the patient that he is septic and we will continue current IV antibiotics with vancomycin and cefepime. It does not appear that his left 2nd toe is the source of the infection. The Podiatry Service will continue to monitor as an inpatient. NIKHIL Eaton/ANN-MARIE /[id number]
--- NOTE | 2020-03-10 14:30 | NUR ---
leg is better blood cultures group b strep [id number]
--- NOTE | 2020-03-10 15:30 | NUR ---
Danii with nuclear medicine aware of orders for Indium scan to [facility]
[2020-03-10] MEDS: MUPIROCIN 2% OINT 22 GM TUBE TOP SCH (15:57)
--- NOTE | 2020-03-10 17:02 | Progress Note ---
DATE: SUBJECTIVE: Mr. Sandhu is doing better. The leg seems to be getting better. However, his blood culture showing Strep B. REVIEW OF SYSTEMS: Unremarkable. PHYSICAL EXAMINATION: GENERAL: He is currently alert and oriented. VITAL SIGNS: Stable, afebrile. HEENT: Not icteric. NECK: Supple. CHEST: Clear. ABDOMEN: Morbidly obese. IMPRESSION: Sepsis on admission, bacteremia, Strep B. We will get a SHERITA to rule out endocarditis. We will also obtain indium scan. The patient had history of knee surgery with a foreign body and this is the third time he gets the infection. The plan is to continue with antibiotic. We will change him to Rocephin 2 g q.12 hours since he is really morbidly obese patient. Recheck blood cultures. Obtain SHERITA. Obtain indium scan. We will get a PICC line. We will need extensive course of antibiotic. We will follow. MD JOANNA Elizondo/ANN-MARIE /[id number]
--- NOTE | 2020-03-10 17:27 | Progress Note ---
DATE: 03/10/2020 CONSULTANTS: 1. Dr. Gamble with Infectious Disease. 2. Dr. Sexton with Podiatry. 3. Dr. Gallego, Cardiology. CHIEF COMPLAINT: Fever, chills, and lower extremity redness and swelling. SUBJECTIVE: The patient is sitting up in a chair with no acute distress. is at the bedside, he denies any chest pain, shortness of breath, nausea, vomiting, fever, chills. PHYSICAL EXAMINATION: VITAL SIGNS: Temperature 98.2, pulse is 78, respirations 18, blood pressure 132/71, pulse ox is 98% on room air. GENERAL: No acute distress. HEENT: Normocephalic, atraumatic. NECK: Supple. LUNGS: Clear to auscultation. CARDIOVASCULAR: Regular rate and rhythm. GI: Soft and nontender, obese. NEUROLOGY: Alert, awake oriented x3. MUSCULOSKELETAL: Moves all extremities. Left lower extremity with 3+ edema, arrhythmia. PSYCH: Calm. LABORATORY DATA: WBC 8.02, hemoglobin 12.2, hematocrit 37.2, platelet 198. Sodium 135, potassium 4.0, CO2 of 26, creatinine 0.88. Estimated GFR is greater than 60. Blood culture is positive for gram-positive cocci chain, Streptococcus group G positive. IMPRESSION: 1. Sepsis present on admission due to left lower extremity cellulitis. We will continue on cefepime and vancomycin. Blood culture positive for Streptococcus group G. ID has been consulted. Venous Doppler negative. We will repeat blood cultures, indium scan ordered. 2. Bacteremia due to cellulitis. Blood culture positive for Streptococcus group G. We will consult Cardiology for SHERITA. We will repeat blood cultures. 3. Hypertension. Continue on losartan and HCTZ. 4. Atrial fibrillation. We will continue on amiodarone . 5. High cholesterol, on statin. 6. Diabetes type 2. Continue Actos and sliding scale coverage. 7. Morbid obesity with a BMI of 59.8. Discussed lifestyle modification. 8. Left second toe ulcer. Podiatry has been consulted, planned bedside treatment tomorrow. 9. Deep vein thrombosis prophylaxis. Lovenox b.i.d. PLAN: Continue IV antibiotics, debridement planned for tomorrow per Podiatry, we will obtain indium scan of the left lower extremity and SHERITA per Cardiology. Dictated by Rhiannon De Los Santos, ANP MD MIGUEL A Zuleta/ANN-MARIE /[id number]
--- NOTE | 2020-03-10 18:56 | NUR ---
Received the patient in report.stable condition.no pain voiced.
--- NOTE | 2020-03-10 19:00 | NUR ---
Report given to oncoming nurse of patient's status. Resting in bed, side rails upx2, call light within reach. AAOX4 to time, person, place, situation. Respirations even and unlabored.
--- NOTE | 2020-03-10 20:00 | NUR ---
PICC LINE PLACED TO LEFT UPPER ARM.X RAY TAKEN.OK TO USE.
--- NOTE | 2020-03-10 20:07 | Diagnostic Imaging Report ---
EXAMINATION: CHEST XRAY LINE PLACEMENT INDICATION: PICC line placement, verify position COMPARISON: Chest x-ray 03/07/2020; abdominal CT 01/29/2020 FINDINGS: TUBES and LINES: New left upper extremity PICC tip terminates at the superior cavoatrial junction. LUNGS: Normal lung volumes. Lungs are clear. Prominent central pulmonary vasculature. PLEURA: No pleural effusion or pneumothorax. HEART AND MEDIASTINUM: Cardiac size is borderline enlarged. BONES AND SOFT TISSUES: No acute osseous lesion. Soft tissues are unremarkable. UPPER ABDOMEN: No free air under the diaphragm. IMPRESSION: New left upper extremity PICC tip terminates at the superior cavoatrial junction. Borderline cardiomegaly and pulmonary vascular congestion. Signed by: Panfilo Feliciano DO on 03/10/2020 8:04 PM
[2020-03-10] MEDS: ATORVASTATIN 40 MG TAB PO SCH (21:03)
--- NOTE | 2020-03-10 22:03 | Consultation ---
DATE OF CONSULTATION: Cardiology Consult REASON FOR CONSULTATION: Atrial fibrillation, hypertension, and dyslipidemia. HISTORY OF PRESENT ILLNESS: The patient is a 54-year-old man, who has a history of hypertension, paroxysmal atrial fibrillation, type 2 diabetes, and peripheral neuropathy, who presented to the emergency room on March 07, 2020 with left leg cellulitis. The patient states that he has been admitted multiple times to this hospital and another hospital for the same problem. Cardiovascular history significant for hypertension, paroxysmal atrial fibrillation, on amiodarone. Current cardiac rhythm is sinus rhythm. The patient denies any history of chest pain, myocardial infarction, congestive heart failure, or stroke. HOME MEDICATIONS: 1. Amiodarone 200 mg one a day. 2. Aspirin 325 mg one a day. 3. Atorvastatin 40 mg at night. 4. Diltiazem 180 mg daily. 5. Losartan 100 mg one a day. 6. Hydrochlorothiazide 25 mg one a day. 7. Metformin 1000 mg daily. 8. Pioglitazone 50 mg tablet, he takes one daily. In addition, he takes insulin at home. REVIEW OF SYSTEMS: The patient denies any chest discomfort, chest pain, shortness of breath, palpitations, dizziness, syncope, or cough. PAST MEDICAL HISTORY: As above. OTHER MEDICAL HISTORY: 1. Left knee tendon repair. 2. Neck cellulitis. 3. Morbid obesity. FAMILY HISTORY: Significant for diabetes. ALLERGIES: HE HAS NO KNOWN DRUG ALLERGIES. SOCIAL HISTORY: He is a former smoker. He denies alcohol or other illicit drug abuse. PHYSICAL EXAMINATION: GENERAL: The patient is alert and oriented x3, in no distress. He is morbidly obese. VITAL SIGNS: His blood pressure today is 142/77 mmHg, heart rate is 76 beats per minute, respiratory rate is 18, his temperature is 98.2, and his pulse oxymetry is 97%. HEAD AND NECK: Shows normocephalic and atraumatic head. Pupils are equal and reactive to light. Anicteric conjunctivae. Neck; no elevated JVP, supple. LUNGS: Clear to auscultation. CARDIAC: Regular rate. Normal S1 and S2. No murmurs heard. ABDOMEN: Obese and soft. EXTREMITIES: The left leg, there is erythema and edema below the knee. LABORATORY DATA: Reviewed and the patient's white blood cell count has decreased from 18.49 to 8.02 today, his hemoglobin today is 12.2, hematocrit is 37.2, and his platelet count is 198,000. His sodium today is 135, potassium 4, chloride 103, carbon dioxide is 26, BUN is 15, creatinine is 0.88, and glucose ranges between 185 to 275. Review of his vital signs shows that his systolic pressure in the last 24 hours has ranged from 127 to 142 mmHg and the diastolic blood pressure has been less than 80 over the last 24 hours. Telemetry shows only sinus rhythm. No runs of atrial fibrillation. ASSESSMENT AND PLAN: 1. Hypertension, adequately controlled at this time. If it continues to increase, we will add diltiazem, which is a medication that he takes at home, but he is not getting here in the hospital. Monitor blood pressure and heart rate closely. Continue telemetry. 2. Paroxysmal atrial fibrillation, now sinus rhythm. Continue amiodarone and full aspirin. Continue to monitor cardiac rhythm via telemetry. The patient is asymptomatic. 3. Dyslipidemia. Continue atorvastatin 40 mg in the evening. We will follow with you. MD SHANNEN William/MODBryon /[id number]
[2020-03-11] VITALS (8 sets, daily range): BP systolic 121–163; BP diastolic 49–77
[2020-03-11] MEDS: VANCOMYCIN 1GM/NS 250 ML 250 ML IV SCH (02:47)
--- NOTE | 2020-03-11 05:00 | NUR ---
Maintaining npo .stable condition.
--- NOTE | 2020-03-11 06:50 | NUR ---
BED SIDE SHIFT REPORT GIVEN TO ONCOMING RN.STABLE CONDITION.
--- NOTE | 2020-03-11 07:00 | NUR ---
BEDSIDE SHIFT REPORT RECEIVED FROM THE FLAT LOCKER RN. EDUCATED PT ABOUT FALL PRECAUTIONS. CALL LIGHT WITH IN EASY REACH. INSTRUCTED PT TO USE CALL LIGHT FOR ALL THE NEEDS. PT VERBALIZED UNDERSTANDING. BED IS LOW AND LOCKED. SIDE RAILS X2. PT DENIES NEEDS AT THIS TIME.
--- NOTE | 2020-03-11 07:10 | NUR ---
PAGED DR. SALES REGARDING DEBRIDEMENT. NO NPO NEEDED PER THE
[2020-03-11] MEDS: MUPIROCIN 2% OINT 22 GM TUBE TOP SCH (08:30)
[2020-03-11] MEDS: PANTOPRAZOLE SOD 40 MG TABEC PO SCH (08:30)
[2020-03-11] MEDS: INSULIN REGULAR, HUMAN 100 UNIT/1 ML 3ML VIAL SQ SCH ×4 (08:30→22:00)
--- NOTE | 2020-03-11 08:44 | Operative Report ---
DATE OF PROCEDURE: 03/11/2020 SURGEON: Mik Sexton DPM PREOPERATIVE DIAGNOSIS: Left 2nd digit ulcer. POSTOPERATIVE DIAGNOSIS: Left 2nd digit ulcer. PLANNED PROCEDURE: Left stage II ulcer debridement to the level of dermal tissue. PROCEDURE NOTE: The patient was seen at the bedside where the correct procedure and side was identified. The patient had previously signed written consent. The ulcer was identified at the plantar aspect of the patient's left 2nd digit and was then scrubbed, prepped, and draped in the usual aseptic manner with Betadine. Next, the patient was flipped to the prone position on his own on the bed. Utilizing a #15 blade, all the hyperkeratotic and devitalized tissue was debrided to the level of dermal tissue excisionally. Upon debridement, there was very minimal superficial ulceration present at the level of the proximal interphalangeal joint. No erythema, edema, drainage or open granulation tissue was noted. The wound was then copiously irrigated with sterile saline and dressed with Xeroform and 2 x 2 and tape. The patient tolerated the procedure well. Superficial ulceration noted to the plantar aspect of the patient's left 2nd digit is stable with no local acute signs of infection is likely not the source of the infection for the sepsis. Recommendations; to continue IV antibiotics. Further workup is being obtained with bone scan. The Podiatry Service will continue to monitor as an inpatient. The patient is stable to be discharged from the Podiatry standpoint once stable based on other consulting services. NIKHIL Eaton/ANN-MARIE /[id number]
[2020-03-11] MEDS: ASPIRIN 325 MG TAB PO SCH (08:52)
[2020-03-11] MEDS: PIOGLITAZONE HCL 15 MG TAB PO SCH (08:52)
[2020-03-11] MEDS: AMIODARONE HCL 200 MG TAB PO SCH (08:52)
[2020-03-11] MEDS: LOSARTAN POTASSIUM 100 MG TAB PO SCH (08:53)
[2020-03-11] MEDS: CEFEPIME 1GM/NS 0.9% 50 ML 50 ML IV SCH (09:06)
[2020-03-11] MEDS: ENOXAPARIN SOD INJ 40 MG/0.4 ML SYR SC SCH ×2 (09:06→16:59)
--- NOTE | 2020-03-11 10:50 | Progress Note ---
DATE: SUBJECTIVE: The patient is seen and evaluated. Available labs and notes reviewed. Discussed with Dr. Gamble. Discussed with staff. Please refer to chart for more information. REVIEW OF SYSTEMS: Feels better. Denied fever and chills. Appetite is good. Ate 100% this morning. No nausea. No vomiting. No diarrhea. No chest pain or shortness of breath. PHYSICAL EXAMINATION: VITAL SIGNS: Temperature is 98.3. The patient is afebrile for more than 2 days. Pulse 69, respiration 20, and blood pressure 156/74. GENERAL: Alert and oriented. No acute distress. Pleasant. CV: S1 and S2. CHEST: Equal expansion. Clear to auscultation. No acute distress. ABDOMEN: Morbidly obese, soft, and nontender. HEENT: Moist. No pallor. No JVD. EXTREMITIES: Left lower extremity cellulitis. Reportedly, per nurse and the patient himself, status post debridement of his left foot by outer diameter technician. I am still pending for the note to be typed in. MEDICATIONS: Medication list reviewed and from ID point of view, the patient is on vancomycin IV and cefepime. LABORATORY STUDIES: White count of 8.02, hemoglobin 12.2, and platelet 198. Sodium 135. Toxicology; vancomycin trough 6.2 on 03/09. Serology; coronavirus PCR negative on 03/07/2020. MICROBIOLOGY: Blood culture, Streptococcus group G on 03/07. Recheck blood cultures 03/10, is pending. RADIOLOGY STUDIES: Status post left upper extremity PICC line placement. ASSESSMENT AND PLAN: Strep bacteremia-this is recurrent. Apparently, this is the third time he is getting infection. Concerned about occult site of infection. We will change antibiotics to Rocephin 2 g q.12 hours. The patient is morbidly obese. Also, followup with the SHERTIA and indium scan. The patient is status post line placement. Received debridement from Podiatry reportedly today. Follow with a recheck blood culture. Other medical conditions including hyperlipidemia, hypertension, morbid obesity, and diabetes. Further management of this patient is based on daily findings on laboratory and physical examination,. Please refer to chart for more information. Dictated by Bi Gunderson PA-C (Al) Re Gamble MD /ANL /[id number]
--- NOTE | 2020-03-11 11:00 | NUR ---
PAGED PHARMACY TO RECONFIRM LOSARTAN WITH HCTZ.
--- NOTE | 2020-03-11 11:15 | NUR ---
PAGED LIVESTOCK SPECULATOR REGARDING SHERITA FOR 9 AM ON February PER DR. KRAMER.
[2020-03-11] MEDS: HYDROCHLOROTHIAZIDE 25 MG TAB PO SCH (11:33)
[2020-03-11] MEDS: CEFTRIAXONE SOD 2 GM/NS 100 ML 100 ML IV SCH ×2 (12:03→23:50)
[2020-03-11] MEDS: LACTOBACILLUS ACIDOPHILUS CAPSULE PO SCH (16:59)
--- NOTE | 2020-03-11 19:15 | NUR ---
Patient visited in room during nursing rounds. Patient alert and oriented x3. Ambulatory in room prn. BLE cellulitis especially on left leg and foot. S/P debridement on 2nd left toe today. Dressing clean and dry. Pt on scheduled IV antibiotic treatment. Pt scheduled for SHERITA and Indium nuclear scan tomorrow (03/12/20) and will be NPO at midnight tonight. Call jenkins within reach. Will monitor closely.
--- NOTE | 2020-03-11 19:25 | NUR ---
BEDSIDE SHIFT REPORT GIVEN TO THE MIXER OPERATOR HOT METAL RN. PT DENIED FURTHER NEEDS.
--- NOTE | 2020-03-11 20:49 | Progress Note ---
DATE: 03/11/2020 Cardiology Progress Note SUBJECTIVE: Denies any chest pain or shortness of breath. OBJECTIVE: VITAL SIGNS: Temperature 98.3, heart rate 69, blood pressure 156/74, respiratory rate 20, O2 saturation 95%, BMI 56.8. GENERAL: In no acute distress. NECK: No JVD. CHEST: Clear to auscultation. CARDIOVASCULAR: Regular rate and rhythm. Normal S1 and S2. No S3 or S4. ABDOMEN: Soft. Bowel sounds positive. EXTREMITIES: Trace edema. CARDIOVASCULAR MEDICATIONS: Reviewed. Aspirin 325 mg daily, amiodarone 200 mg p.o. daily, atorvastatin 40 mg at bedtime, Lovenox 40 mg b.i.d. LABORATORY DATA: Studies reviewed. Creatinine 0.8, hemoglobin 12.2, white blood cells 8, platelets 198. ASSESSMENT: 1. A 54-year-old man presents with recurrent infections, several hospitalizations including ICU stays. We have been requested to evaluate for transesophageal echocardiographic assessment to rule out bacterial endocarditis. 2. The patient has paroxysmal atrial fibrillation, diabetes, dyslipidemia, morbid obesity, hypertension. RECOMMENDATIONS: 1. Continue current cardiovascular medications. 2. I discussed at length all alternatives, risks and benefits, and indications for transesophageal echocardiographic assessment with assistance of anesthesia. The patient voices understanding and agrees to proceed. He denies any prior issues with dysphagia, allergic reactions to medications or previous complications with anesthesia. Denies use of dentures, liver disease or GI bleeding. MD ELVIE Goetz/MODBryon /[id number]
--- NOTE | 2020-03-11 21:14 | Progress Note ---
DATE: 03/11/2020 CONSULTANTS: 1. Dr. Gamble with Infectious Disease. 2. Dr. Sexton with Podiatry. 3. Dr. Gallego with Cardiology. CHIEF COMPLAINT: Fever, chills, redness and swelling of the left lower extremity. SUBJECTIVE: The patient is resting in bed, status post left 2nd toe debridement per Podiatry this morning. He denies any fever, chills, chest pain, shortness of breath, nausea, or vomiting. PHYSICAL EXAMINATION: VITAL SIGNS: Temperature 97.9, pulse is 67, respirations 20, blood pressure 133/58, pulse ox is 97% on room air. GENERAL: Fatigue. HEENT: Normocephalic, atraumatic. NECK: Supple. LUNGS: Clear to auscultation. CARDIOVASCULAR: Regular rate and rhythm. GI: Soft and nontender, obese. NEUROLOGY: Alert, awake, oriented x3. MUSCULOSKELETAL: Moves all extremities. Left lower extremity edema and redness. PSYCH: Calm. IMPRESSION: 1. Sepsis present on admission due to left lower extremity cellulitis. Continue Rocephin q.12 hours. Blood culture positive for Streptococcus group G. Venous Doppler was negative for acute deep vein thrombosis. Pending repeat blood cultures and indium scan tomorrow. 2. Bacteremia due to cellulitis. Blood culture positive for Streptococcus group G. Continue Rocephin IV b.i.d. per Infectious Disease recommendation. Cardiology has been consulted for SHERITA tomorrow. 3. Hypertension. Continue on losartan and HCTZ. 4. Atrial fibrillation. Continue amiodarone. He is on aspirin for cerebrovascular accident prophylaxis per his slurry man. 5. High cholesterol. On statin. 6. Diabetes type 2. Continue Actos and sliding scale coverage. 7. Morbid obesity with a BMI of 59.8. Lifestyle modification. 8. Left second toe ulcer. Status post debridement per bellows tester. 9. Deep vein thrombosis prophylaxis. Lovenox b.i.d. PLAN: To continue IV antibiotics, pending SHERITA and indium scan tomorrow. Dictated by AGUSTIN Aguayo Gladisching Braulio Sanchez MD MY/MODL /[id number]
[2020-03-11] MEDS: ATORVASTATIN 40 MG TAB PO SCH (22:00)
[2020-03-12] VITALS (12 sets, daily range): BP systolic 107–147; BP diastolic 50–79
--- NOTE | 2020-03-12 07:29 | NUR ---
PATIENT SITTING AT BED SIDE WATCHING TV, NO DISTRESS NOTED. DRESSING INTACT TO LEFT 2ND TOE. BED IN LOWER POSITION, CALL LIGHT AT REACH.
[2020-03-12] MEDS: INSULIN REGULAR, HUMAN 100 UNIT/1 ML 3ML VIAL SQ SCH ×4 (07:30→22:28)
[2020-03-12] MEDS: PANTOPRAZOLE SOD 40 MG TABEC PO SCH (07:30)
--- NOTE | 2020-03-12 08:16 | Progress Note ---
DATE: 03/12/2020 SUBJECTIVE: A 54-year-old male, past medical history of type 2 diabetes, peripheral neuropathy, hypertension, and atrial fibrillation, who was seen at bedside this a.m. He relates to resting comfortably. Currently, denies nausea, vomiting, fever, chills, chest pain, or shortness of breath. PHYSICAL EXAMINATION: GENERAL: Alert and oriented x3, in no apparent distress. VITAL SIGNS: Today temperature 98.2, heart rate 70, respiratory rate 20, blood pressure 137/62, and pulse ox is 97% on room air. Problem focused lower extremity physical exam: VASCULAR: Dorsalis pedis and posterior tibial pulses are faintly palpable. +2 pitting edema with erythema and warmth to the left lower extremity. No erythema, edema, or warmth is noted to the left foot near the 2nd digit. NEUROLOGICAL: Sensation is diminished to light touch bilateral. MUSCULOSKELETAL: Pain on palpation to left lower extremity in the area of the distal tibia, however, negative pain on palpation to the left foot of the 2nd toe. DERMATOLOGICAL: Superficial ulceration to the plantar aspect of 2nd digit improved since debridement procedure yesterday. No local erythema, edema, or warmth. LABORATORY DATA: White blood cell count is 8.02, hemoglobin 12.2, hematocrit 37.2, and platelet count 198. Glucose today is 210. ASSESSMENT: 1. Left lower extremity edema and cellulitis. 2. Superficial left 2nd toe ulceration, stage I. No signs of infection. 3. Type 2 diabetes, peripheral neuropathy. 4. Hypertension. 5. Obesity. 6. Septicemia. PLAN: The patient was seen and evaluated. Discussed condition and treatment options with the patient in detail. Wound was examined, the left 2nd toe is very superficial with no local acute signs of infection. I will recommend antibiotic ointment and Band-Aid at this time. The patient is pending an indium labeled bone scan as well as SHERITA to determine source of septicemia and infection. The Podiatry Service will continue to monitor as an inpatient with IV antibiotics. NIKHIL Eaton/MODL /[id number]
[2020-03-12] MEDS ORDERED: BENZOCAINE 20% SPR 60 ML CAN ONE (08:45)
[2020-03-12] MEDS ORDERED: SODIUM CHLORIDE 0.9% 1000ML 1,000 ML ONE (08:46)
--- NOTE | 2020-03-12 08:52 | NUR ---
PATIENT OFF UNIT FOR A PROCEDURE.
[2020-03-12] MEDS: ENOXAPARIN SOD INJ 40 MG/0.4 ML SYR SC SCH ×2 (09:00→17:05)
[2020-03-12] MEDS ORDERED: BENZOCAINE/TETRACAINE/BUTAMBEN AERO SPRAY 56 GM CAN ONE (09:07)
--- NOTE | 2020-03-12 10:06 | Progress Note ---
DATE: 03/12/2020 Cardiology Progress Note SUBJECTIVE: Mr. Sandhu denies any chest pain or shortness of breath. OBJECTIVE: VITAL SIGNS: Temperature 98 degrees, heart rate 118, blood pressure 125/72, respiratory rate 19, and O2 saturation 98%. BMI 56.9. GENERAL: In no acute distress. Alert. NECK: No JVD. CHEST: Clear to auscultation. CARDIOVASCULAR: Regular rate and rhythm. Normal S1 and S2. ABDOMEN: Soft. Bowel sounds positive. Morbidly obese. EXTREMITIES: Trace edema. CARDIOVASCULAR MEDICATIONS: Reviewed. Hydrochlorothiazide 25 mg daily, losartan 100 mg daily, atorvastatin 40 mg at bedtime, aspirin 325 mg daily, Lovenox 40 mg subcutaneous b.i.d., and amiodarone 200 mg daily. STUDIES: Reviewed. Potassium 4 and creatinine 0.8. White blood cells 8, hemoglobin 12, and platelets 198. AST 16 and ALT 26. ASSESSMENT AND PLAN: A 54-year-old man with paroxysmal atrial fibrillation, recurrent bacterial infections, hypertension, dyslipidemia, morbid obesity, and diabetes mellitus type 2. RECOMMEND: Transesophageal echocardiogram was performed to exclude endocarditis. No vegetations observed. The patient to continue current cardiovascular medications. Blood pressure at goal. Upon discharge, consider transition to thromboembolic risk prevention with direct oral anticoagulant in the setting of paroxysmal atrial fibrillation. For now, Lovenox bridge. MD MelaraV/MODL /[id number]
--- NOTE | 2020-03-12 10:15 | NUR ---
PATIENT BACK TO UNIT FROM SERVICE RIG OPERATOR. REPORT RECEIVED FROM AFSANEH CALDERON. PATIENT HAD A SHERITA DONE. ALERT AND VERBALLY RESPONSIVE, BUT DROWSY. REMAINS NPO TILL 1110 PER MD ORDER. BED IN LOWER POSITION AND LOCKED, CALL LIGHT AT REACH. V/S 98.2-67-20-121/63 AND 93% ON RA.
--- NOTE | 2020-03-12 10:17 | NUR ---
PROCEDURE NOTE- 0908-Patient transferred to OR1 for SHERITA. Anesthesia at bedside assessing patient. 0910-Time out performed with all participating staff. All agree. Patient sprayed with Hurricaine spray x2. 0914-SHERITA probe in. 09-Bubble study done. 921-SHERITA probe removed. Transferred to PACU bay #11 with anesthesia. Full report given to AFSANEH Armendariz.
--- NOTE | 2020-03-12 11:22 | Progress Note ---
DATE: SUBJECTIVE: The patient is seen and evaluated. Available labs and notes reviewed. Discussed with Dr. Gamble and spoke with Cardiology. REVIEW OF SYSTEMS: The patient is just back from SHERITA, still kind of sleepy, however, alert and oriented, in no acute distress. No complaints. PHYSICAL EXAMINATION: VITAL SIGNS: Temperature is 98, pulse is 69, respiration 15, blood pressure 118/63. GENERAL: Alert and oriented, in no acute distress. CV: S1, S2. CHEST: Equal expansion. Clear to auscultation. No acute distress. ABDOMEN: Soft, nontender. No distention. HEENT: Moist. No pallor. No JVD. EXTREMITIES: Left lower extremity cellulitis seen. No obvious significant change. MEDICATIONS: Medication list reviewed. From ID point of view, the patient is on Rocephin. LABORATORY STUDIES: White count of 8.02, and creatinine level of 0.88. However, there are no new CBC or BMP from today. Serology; coronavirus PCR not detected 03/07/2020. MICROBIOLOGY: Blood culture, Streptococcus group G. Recheck blood culture negative. IMAGING: No new radiology studies available. ASSESSMENT AND PLAN: 1. Strep bacteremia, recurrent. The patient is on Rocephin. Spoke with Cardiology. SHERITA was negative for vegetation. Indium scan pending. 2. Morbid obesity. 3. Hyperlipidemia. 4. Hypertension. 5. Diabetes. 6. Debility. Continue with antibiotics. Follow with Indium scan. Monitor cellulitis of the left lower extremity. Further management of this patient is based on daily findings on laboratory and physical examination. Recheck blood cultures negative. Dictated by Bi Gunderson PA-C (Al) Re Gamble MD /MODL /[id number]
[2020-03-12] MEDS: MUPIROCIN 2% OINT 22 GM TUBE TOP SCH (11:30)
[2020-03-12] MEDS: CEFTRIAXONE SOD 2 GM/NS 100 ML 100 ML IV SCH ×2 (11:30→22:30)
[2020-03-12] MEDS: LACTOBACILLUS ACIDOPHILUS CAPSULE PO SCH ×2 (11:30→17:05)
[2020-03-12] MEDS: AMIODARONE HCL 200 MG TAB PO SCH (11:30)
[2020-03-12] MEDS: PIOGLITAZONE HCL 15 MG TAB PO SCH (11:30)
[2020-03-12] MEDS: LOSARTAN POTASSIUM 100 MG TAB PO SCH (11:30)
[2020-03-12] MEDS: HYDROCHLOROTHIAZIDE 25 MG TAB PO SCH (11:30)
[2020-03-12] MEDS: METFORMIN HCL 500 MG TAB PO SCH (11:30)
[2020-03-12] MEDS ORDERED: MIDAZOLAM HCL 2 MG/2 ML VIAL ONE (14:11)
[2020-03-12] MEDS ORDERED: FENTANYL CITRATE/PF 100MCG/2 ML INJ ONE (14:11)
--- NOTE | 2020-03-12 15:17 | Progress Note ---
DATE: 03/12/2020 CONSULTANTS: 1. Dr. Gamble with Infectious Disease. 2. Dr. Sexton with Podiatry. 3. Dr. Gallego with Cardiology. CHIEF COMPLAINT: Fever, chills, redness and swelling of the left lower extremity. SUBJECTIVE: The patient is seen sleeping comfortably. Spouse at the bedside. He had a SHERITA this morning, awaiting on results. Denies any fever, chills, chest pain, shortness of breath, nausea, or vomiting. No events overnight, indium test pending for later today. PHYSICAL EXAMINATION: VITAL SIGNS: Temperature 98.4, pulse is 68, respirations 16, blood pressure 126/50, pulse ox is 94% on room air. GENERAL: No acute distress. HEENT: Normocephalic, atraumatic. NECK: Supple. LUNGS: Clear to auscultation. CARDIOVASCULAR: Regular rate and rhythm. GI: Soft and nontender. Obese. NEUROLOGY: Alert, awake and oriented x3. MUSCULOSKELETAL: Moves all extremities. Left lower extremity edema and redness improving some. PSYCH: Calm. Blood cultures negative for 24 hours. IMPRESSION: 1. Sepsis present on admission due to left lower extremity cellulitis. Continue Rocephin q.12 hours. Venous Doppler negative for acute DVT. Indium scan pending later today. ID on board. 2. Bacteremia due to cellulitis with Streptococcus group G. Repeat blood culture pending. Continue Rocephin IV b.i.d. per ID. Cardiology has been consulted for SHERITA, awaiting on results. 3. Hypertension. Continue losartan and hydrochlorothiazide. 4. Atrial fibrillation. Continue amiodarone. He is on aspirin for cerebrovascular accident prophylaxis per his defect cutter. 5. High cholesterol. On statin. 6. Diabetes type 2. Continue Actos and metformin with sliding scale insulin. 7. Morbid obesity with BMI of 59.8. Discussed lifestyle modification. 8. Left 2nd toe ulcer. Status post bedside debridement by Podiatry. Dressing changes per their recommendations. 9. Deep vein thrombosis prophylaxis. Lovenox subcu b.i.d. PLAN: To continue IV antibiotics, pending indium scan later today. Awaiting on SHERITA results. Dictated by AGUSTIN Aguayo MD MIGUEL A Zuleta/ANN-MARIE /[id number]
--- NOTE | 2020-03-12 16:06 | NUR ---
PATIENT ASSISTED TO THE RESTROOM AND BACK TO BED. CALL LIGHT AT REACH.
[2020-03-12] MEDS: ASPIRIN 325 MG TAB PO SCH (17:04)
--- NOTE | 2020-03-12 17:25 | NUR ---
PATIENT OFF UNIT TO NUCLEAR MEDICINE.
[2020-03-12] MEDS ORDERED: PROPOFOL IV EMULSION 10 MG/ML 20 ML VIAL ONE (18:32)
[2020-03-12] MEDS ORDERED: ETOMIDATE 2 MG/ML 10 ML INJ IV ONE (18:32)
--- NOTE | 2020-03-12 18:50 | NUR ---
PATIENT BACK TO UNIT FROM NUCLEAR MEDICINE, ASSISTED BACK TO BED. CALL LIGHT AT REACH.
--- NOTE | 2020-03-12 19:06 | NUR ---
BED SIDE SHIFT REPORT GIVEN TO ON COMING NURSE.
--- NOTE | 2020-03-12 19:20 | NUR ---
Patient visited in room during nursing rounds. Patient alert and oriented x3. Ambulatory in room prn. BLE cellulitis especially on left leg and foot. S/P debridement on 2nd left toe. Dressing clean and dry. Pt on scheduled IV antibiotic treatment. S/P SHERITA and Indium nuclear scan on left leg. Call jenkins within reach. Will monitor closely.
--- NOTE | 2020-03-12 21:17 | Diagnostic Imaging Report ---
ADDENDUM #1 For clarification: No abnormal focal accumulation of labeled white blood cells is seen in either knee to suggest localized active infection/inflammation, specifically, none is seen in the left knee. As noted in the original report, there is evidence of cellulitis in the soft tissues of the left knee and lower leg. Signed by: Dr. Vy Lin M.D. on 03/13/2020 6:16 PM ORIGINAL REPORT Labeled WBC Study Reason for exam: Left lower extremity cellulitis and edema. Admitted with sepsis. Ulcer on left 2nd toe. Comparison: Most recent left foot radiograph 09/18/2019; no imaging of left lower extremity Report: The patient's own white blood cells were labeled with indium-111 oxine 0.55 mCi by a commercial radiopharmacy. Images of the knees, lower legs and feet were obtained at 27 hours post administration of the labeled white blood cells. No abnormal accumulation of tracer is seen in any of the toes, specifically, not the left 2nd toe. Focal increased tracer is seen in the distal femurs and proximal tibias in a pattern that is symmetric in extent although there is slightly greater intensity in the left tibia proximally when compared to the right. IMPRESSION: 1. No scan evidence of osteomyelitis or soft tissue infection in the left 2nd toe. 2. The symmetric distribution of tracer in the distal femurs and the proximal tibias is consistent with normal marrow distribution. The slightly greater intensity of the tracer in the left tibia compared to the right tibia is likely due to the presence of cellulitis and hyperemia. No scan evidence of osteomyelitis is present. Signed by: Dr. Vy Lin M.D. on 03/12/2020 9:13 PM
[2020-03-12] MEDS: INSULIN GLARGINE 100 UNITS/ML VIAL SQ SCH (22:28)
[2020-03-12] MEDS: ATORVASTATIN 40 MG TAB PO SCH (22:28)
[2020-03-13] VITALS (8 sets, daily range): BP systolic 117–159; BP diastolic 68–81
--- NOTE | 2020-03-13 07:00 | NUR ---
received bedside report. pt is sleeping, no s/s of distress. call light within reach
[2020-03-13] MEDS: INSULIN REGULAR, HUMAN 100 UNIT/1 ML 3ML VIAL SQ SCH ×4 (08:30→20:40)
--- NOTE | 2020-03-13 08:45 | Progress Note ---
DATE: 03/13/2020 SUBJECTIVE: This is a 54-year-old male with past medical history of type 2 diabetes, peripheral neuropathy, hypertension, and atrial fibrillation, who was admitted for sepsis for lower extremity cellulitis approximately 6 days ago. The patient was resting comfortably at the bedside, currently denies nausea, vomiting, fever, chills, or shortness of breath. PHYSICAL EXAMINATION: GENERAL: Alert and oriented x3, in no apparent distress. VITAL SIGNS: Today temperature 98.1, heart rate 68, respiratory rate 19, blood pressure 156/73, pulse ox is 98% on room air. Problem focused lower extremity physical exam: Vascular: Dorsalis pedis and posterior tibial pulses are faintly palpable, +2 pitting edema with erythema and warmth to the left lower extremity, does display improvement from previous visit. Negative erythema, edema, or warmth is noted to the left 2nd digit. NEUROLOGICAL: Sensation is diminished to light touch bilateral. MUSCULOSKELETAL: Pain on palpation of the left lower extremity in the area of the distal tibia, however, is improved. Negative pain on palpation of the left 2nd digit. DERMATOLOGICAL: superficial ulcerations is noted to the plantar aspect of left 2nd digit, 100% granular with superficial scab formation. No local erythema, edema, or warmth is noted. LABORATORY DATA: No new CBC today. Glucose 171. IMAGING: Bone scan reveals no evidence of osteomyelitis or soft tissue infection of the left 2nd digit. No scan evidence of osteomyelitis is present in the distal tibia. There is greater intensity of the tracer likely due to cellulitis and hyperemia. The SHERITA was negative for vegetation. ASSESSMENT: 1. Left lower extremity edema and cellulitis with septicemia. 2. Superficial left 2nd toe ulceration, stage I. No signs of infection. 3. Type 2 diabetes peripheral neuropathy. 4. Hypertension. 5. Obesity. PLAN: The patient was seen and evaluated. Discussed condition and treatment options with the patient in detail. The wound was examined to the left 2nd toe, which appears granular with superficial scab formation and significant improvement since debridement. No local acute signs of infection are noted. Continue IV antibiotics per Infectious Disease. Bone scan was negative for any osteomyelitis of the left lower extremity. SHERITA was negative for vegetation. The patient is stable to be discharged from the Podiatry standpoint once medically stable. The Podiatry Service will continue to monitor as an inpatient. NIKHIL Eaton /[id number]
[2020-03-13] MEDS: AMIODARONE HCL 200 MG TAB PO SCH (09:00)
[2020-03-13] MEDS: LACTOBACILLUS ACIDOPHILUS CAPSULE PO SCH ×2 (09:00→17:09)
[2020-03-13] MEDS: LOSARTAN POTASSIUM 100 MG TAB PO SCH (09:00)
[2020-03-13] MEDS: PANTOPRAZOLE SOD 40 MG TABEC PO SCH (09:01)
[2020-03-13] MEDS: ASPIRIN 325 MG TAB PO SCH (09:01)
[2020-03-13] MEDS: HYDROCHLOROTHIAZIDE 25 MG TAB PO SCH (09:01)
[2020-03-13] MEDS: METFORMIN HCL 500 MG TAB PO SCH (09:01)
[2020-03-13] MEDS: PIOGLITAZONE HCL 15 MG TAB PO SCH (09:01)
[2020-03-13] MEDS: ENOXAPARIN SOD INJ 40 MG/0.4 ML SYR SC SCH ×2 (09:04→17:09)
--- NOTE | 2020-03-13 11:21 | Progress Note ---
DATE: SUBJECTIVE: The patient is seen and evaluated. Discussed with Dr. Gamble in details. Please refer to chart for more information. REVIEW OF SYSTEMS: No nausea, vomiting, fever, chills, chest pain, or shortness of breath. PHYSICAL EXAMINATION: VITAL SIGNS: Temperature 98.4, pulse is 72, respirations 16, and blood pressure 125/76. GENERAL: Alert and oriented. No acute distress. CV: S1 and S2. CHEST: Equal expansion. Clear to auscultation. No acute distress. ABDOMEN: Soft, morbidly obese, and nontender. HEENT: Moist. No pallor. No JVD. EXTREMITIES: Cellulitis of left lower extremity with slight improvement in redness and edema. MEDICATIONS: Medication list reviewed and from ID point of view, the patient is on Rocephin. LABORATORY STUDIES: White count of 8.02 with a platelet of 198. Last creatinine improved to 0.88 on 03/10. MICROBIOLOGY: Recheck blood culture negative on 03/10. Previous blood culture was positive for Streptococcus group G. Bone scan on 03/11, showed no osteomyelitis. ASSESSMENT AND PLAN: 1. Strep bacteremia with a recheck blood culture negative. 2. Cellulitis of the left leg. 3. Morbid obesity. 4. Hypertension. 5. Hyperlipidemia. 6. Debility. 7. Diabetes. 8. SHERITA and bone scan were negative for vegetation and osteomyelitis respectively. Second toe ulcer, the patient is seen by telecommunicator. Also, bone scan was negative for osteo. The patient remains on Rocephin, status post left upper extremity PICC line. Please refer to chart for more information. Dictated by Bi Gunderson PA-C (Al) Re Gamble MD /MODL /[id number]
--- NOTE | 2020-03-13 11:27 | NUR ---
spoke with Radiology per ALEKSANDAR Antony request. automation techNya, stated that she would ask the radiologist to look at bone scan again and type an addendum pertaining to the knees.
[2020-03-13] MEDS: CEFTRIAXONE SOD 2 GM/NS 100 ML 100 ML IV SCH ×2 (11:45→23:58)
[2020-03-13] MEDS: MUPIROCIN 2% OINT 22 GM TUBE TOP SCH (11:49)
[2020-03-13] MEDS: VANCOMYCIN 1GM/NS 250 ML 250 ML IV SCH (15:00)
--- NOTE | 2020-03-13 15:23 | Progress Note ---
DATE: 03/13/2020 CONSULTANTS: 1. Dr. Gamble, infectious disease. 2. Dr. Sexton with Podiatry. 3. Dr. Gallego, Cardiology. CHIEF COMPLAINT: Fever, chills, redness and swelling to the left lower extremity. SUBJECTIVE: The patient is sitting up in a chair, spouse at the bedside. Reports no discomfort, fever, chills, chest pain, or shortness of breath. PHYSICAL EXAMINATION: VITAL SIGNS: Temperature 98.1, pulse is 66, respirations 19, blood pressure 138/68, and pulse ox is 97% on room air. GENERAL: No acute distress. HEENT: Normocephalic and atraumatic. NECK: Supple. LUNGS: Clear to auscultation. CARDIOVASCULAR: Regular rate and rhythm. GI: Soft and nontender. Obese. NEUROLOGIC: Alert, awake, and oriented x3. MUSCULOSKELETAL: Moves all extremities. Left lower extremity edema and redness. PSYCH: Calm. IMAGING: Indium scan shows no evidence of osteomyelitis. Shows a slightly greater intensity of the tracer in the left tibial compared to the right tibial is likely due to the presence of cellulitis and hyperemia. No vegetation reported in the SHERITA. IMPRESSION: 1. Sepsis, present on admission due to left lower extremity cellulitis. Continue Rocephin q.12 IV. Venous Doppler negative for deep venous thrombosis. Indium scan negative for abscess, ID on the case. 2. Bacteremia due to cellulitis with Streptococcus group G. Repeat blood cultures negative so far. Continue on Rocephin per ID recommendations. SHERITA negative per Cardiology. 3. Hypertension. Continue losartan and hydrochlorothiazide. 4. History of atrial fibrillation. Continue amiodarone and is on aspirin for cerebrovascular accident prophylaxis per his wireworker. 5. High cholesterol. On statin. 6. Diabetes type 2. Continue Actos, metformin, and sliding scale insulin. Added Lantus 10 units at bedtime. 7. Morbid obesity with BMI of 59. 8. Left 2nd toe ulcer. Status post bedside debridement by Podiatry. 9. Deep vein thrombosis prophylaxis. Lovenox subcutaneous b.i.d. PLAN: To continue IV antibiotics, CM consulted for home IV antibiotics arrangement. Dictated by AGUSTIN Aguayo MD MIGUEL A Zuleta/ANL /[id number]
--- NOTE | 2020-03-13 18:52 | NUR ---
WALKING ROUNDS PERFORMED, RECEIVED PT LAYING PRONE IN BED, AAOX3, RR EVEN AND NON-LABORED, ON ROOM AIR. NO S/SX OF DISTRESS NOTED. LEFT PT LAYING PRONE IN BED, BED IN LOW LOCKED POSITION, SIDE RAILS UPX2, CALL LIGHT AND PHONE WITHIN REACH.
--- NOTE | 2020-03-13 19:48 | Progress Note ---
DATE: 03/13/2020 Cardiology Progress Note SUBJECTIVE: Mr. Sandhu denies chest pain or shortness of breath. His left leg erythema is improving. He has otherwise no complaints. OBJECTIVE: VITAL SIGNS: Temperature 98.4, heart rate 66, blood pressure 117/72, respiratory rate 18, O2 saturation 97%, BMI 56.9. GENERAL: In no acute distress, alert. NECK: No JVD. CHEST: Clear to auscultation. CARDIOVASCULAR: Regular rate and rhythm with normal S1 and S2. No S3 or S4 systolic ejection murmur. ABDOMEN: Soft. Bowel sounds positive. EXTREMITIES: Trace edema, left leg erythema. MEDICATIONS: Cardiovascular medications reviewed: 1. Aspirin 325 mg daily. 2. Atorvastatin 40 mg at bedtime. 3. Lovenox 40 mg subcu b.i.d. 4. Hydrochlorothiazide 25 mg daily. 5. Losartan 100 mg daily. 6. Amiodarone 200 mg daily. LABORATORY DATA: Studies reviewed. Potassium 4, creatinine 0.8. White blood cells 8, hemoglobin 12.2, platelets 198. AST 16, ALT 26, alkaline phosphatase 78. ASSESSMENT AND PLAN: A 54-year-old man presents with: 1. Paroxysmal atrial fibrillation. 2. Left leg cellulitis. 3. Recurrent bacterial infections. 4. Diabetes, hypertension, morbid obesity, dyslipidemia. RECOMMENDATIONS: 1. On transesophageal echocardiogram, no evidence of vegetation. Antibiotics at the discretion of ID. 2. Continue current cardiovascular medications with plan for thromboembolic risk prevention in the setting of paroxysmal atrial fibrillation with the patient's home dose oral anticoagulant. 3. Weight loss strongly encouraged as well as elevation of lower extremity p.r.n. diuretics and use of graduated compression stockings, given underlying ischemic frailty from venous hypertension might be contributing to recurrent local skin infections. MD ELVIE Goetz/ANN-MARIE /[id number]
[2020-03-13] MEDS: ATORVASTATIN 40 MG TAB PO SCH (20:36)
[2020-03-13] MEDS: INSULIN GLARGINE 100 UNITS/ML VIAL SQ SCH (20:39)
[2020-03-13] MEDS ORDERED: SODIUM CHLORIDE 0.9% 250ML 250 ML ONE (23:56)
[2020-03-14] VITALS (8 sets, daily range): BP systolic 132–149; BP diastolic 61–77
[2020-03-14] MEDS: VANCOMYCIN 1GM/NS 250 ML 250 ML IV SCH ×2 (02:50→15:33)
[2020-03-14 06:17] LABS: BASOPHILS # (AUTO) 0.1 (0.0-0.1); BASOPHILS % 0.6 % (0.0-1.0); EOSINOPHILS # (AUTO) 0.2 (0.0-0.4); EOSINOPHILS % 1.5 % (0.0-6.0); HEMATOCRIT 39.7 % (38.2-49.6); HEMOGLOBIN 12.5 g/dL (14.0-18.0); MEAN CORPUSCULAR HEMOGLOBIN 27.2 pg (28-32); MEAN CORPUSCULAR HGB CONC 31.5 g/dL (31-35); MEAN CORPUSCULAR VOLUME 86.5 fL (81-99); MONOCYTES # (AUTO) 0.9 (0.2-0.8); MONOCYTES % 8.8 % (4.4-11.3); NEUTROPHILS # (AUTO) 6.1 (2.1-6.9); NEUTROPHILS % 58.4 % (38.7-80.0); PLATELET COUNT 272 x10e3/uL (140-360); RED BLOOD COUNT 4.59 x10e6/uL (4.3-5.7)
[2020-03-14 06:58] LABS: BLOOD UREA NITROGEN 17 mg/dL (7-26); BUN/CREATININE RATIO 17 (6-25); CALCIUM 9.3 mg/dL (8.4-10.2); CARBON DIOXIDE 28 mmol/L (22-29); CHLORIDE 102 mmol/L (98-107); EST GLOMERULAR FILTRATION RATE > 60 ML/MIN (60-); GLUCOSE 172 mg/dL (74-118); SODIUM 136 mmol/L (136-145)
--- NOTE | 2020-03-14 07:00 | NUR ---
received bedside report. pt is alert resting in bed, no s/s of distress. call light within reach and instructed pt to call RN for help
[2020-03-14] MEDS: INSULIN REGULAR, HUMAN 100 UNIT/1 ML 3ML VIAL SQ SCH ×4 (08:15→21:41)
[2020-03-14] MEDS: METFORMIN HCL 500 MG TAB PO SCH (08:15)
[2020-03-14] MEDS: ASPIRIN 325 MG TAB PO SCH (08:15)
[2020-03-14] MEDS: PANTOPRAZOLE SOD 40 MG TABEC PO SCH (08:15)
[2020-03-14] MEDS: PIOGLITAZONE HCL 15 MG TAB PO SCH (08:15)
[2020-03-14] MEDS: AMIODARONE HCL 200 MG TAB PO SCH (08:16)
[2020-03-14] MEDS: LOSARTAN POTASSIUM 100 MG TAB PO SCH (08:16)
[2020-03-14] MEDS: LACTOBACILLUS ACIDOPHILUS CAPSULE PO SCH ×2 (08:16→17:15)
[2020-03-14] MEDS: HYDROCHLOROTHIAZIDE 25 MG TAB PO SCH (08:16)
[2020-03-14] MEDS: ENOXAPARIN SOD INJ 40 MG/0.4 ML SYR SC SCH ×2 (08:19→17:15)
--- NOTE | 2020-03-14 08:26 | Progress Note ---
DATE: 03/14/2020 SUBJECTIVE: This is a 54-year-old male with past medical history of type 2 diabetes, peripheral neuropathy, hypertension, atrial fibrillation, who was admitted for sepsis, lower extremity cellulitis one week ago. The patient is resting comfortably in bed at the bedside. Currently denies nausea, vomiting, fever, chills, chest pains, or shortness of breath. PHYSICAL EXAMINATION: GENERAL: Alert and oriented x3, in no apparent distress. VITAL SIGNS: Today temperature is 97.6, heart rate 66, respiratory rate 18, blood pressure 143/70, pulse ox 98% on room air. PROBLEM FOCUSED LOWER EXTREMITY PHYSICAL EXAM: Vascular dorsalis pedis and posterior tibial pulses are faintly palpable. Positive pitting edema with erythema and warmth noted to the left lower extremity. Minor improvement is noted from previous visit. Negative erythema, edema, or warmth is noted to the left 2nd digit. NEUROLOGICAL: Sensation is diminished to light touch bilateral. MUSCULOSKELETAL: Pain on palpation to the left lower extremity in the area of the distal tibia. Negative pain on palpation to the left 2nd digit. Dermatological superficial ulceration is present to the plantar aspect of the 2nd digit, which is 100% granular and nearly fully epithelialized at this time. No local erythema, edema, or warmth is noted. LABORATORY DATA: White blood cell count is 10.4, hemoglobin 12.5, hematocrit 39.7, and platelet count 272. Sodium 136, potassium 4.0, chloride 102, CO2 28, BUN 17, creatinine 1.0, glucose 172. ASSESSMENT: 1. Left lower extremity edema, cellulitis and septicemia. 2. Venous stasis. 3. Superficial ulceration stage I left second digit. 4. Type 2 diabetes peripheral neuropathy. 5. Hypertension. 6. Obesity. PLAN: The patient was seen and evaluated. Discussed condition and treatment options with the patient in detail. The wound to the left 2nd toe was examined and is nearly fully epithelialized at this time with a local acute signs of infection. Continue IV antibiotics per Infectious Disease for the left lower extremity venous stasis cellulitis. Bone scan was negative for osteomyelitis to the left 2nd toe lower extremity. SHERITA was negative for vegetation. Recommend elevation to the left lower extremity and compression dressings if okay per Cardiology. The patient is stable to be discharged from the Podiatry standpoint on IV antibiotics once medically stable. Podiatry Service will continue to monitor as an inpatient. NIKHIL Eaton /[id number]
--- NOTE | 2020-03-14 11:36 | NUR ---
ORDER RECEIVED FOR ROCEPHIN 2GM IV [id number] AT HOME W WEEKLY LABS. CALL TO THE PT. DISCUSSED CHOICE. PT STATES HE WANTS TO USE THE SAME CO HE USED IN DECEMBER. CHOICE LETTER WAS SIGNED FOR [facility] @ OFF: [phone] / FAX: [phone]. REFERRAL WAS FAXED.
[2020-03-14] MEDS: CEFTRIAXONE SOD 2 GM/NS 100 ML 100 ML IV SCH ×2 (12:08→23:46)
--- NOTE | 2020-03-14 13:23 | Progress Note ---
DATE: SUBJECTIVE: The patient is seen and evaluated. Available labs and notes reviewed. Please refer to chart for more information. REVIEW OF SYSTEMS: No nausea, vomiting, fever, chills, chest pain, shortness of breath, headache, rash, dysuria, or polyuria. PHYSICAL EXAMINATION: VITAL SIGNS: Temperature is 96.7, pulse 66, respiration 20, blood pressure 141/61. GENERAL: Alert and oriented, no acute distress. CV: S1, S2. CHEST: Equal expansion. Clear to auscultation. No acute distress. ABDOMEN: Soft, nontender. No distention. HEENT: Moist, no pallor. No JVD. EXTREMITIES: Left lower extremity cellulitis seems to be improved slightly in color and not as red and also the swelling gone down. MEDICATIONS: Medication list reviewed. From ID point of view patient is on Rocephin and vancomycin IV. LABORATORY STUDIES: Coronavirus PCR not detected on 03/07. Vancomycin trough was 9 on 03/11/2020. White count of 10.48, hemoglobin 12.5, platelet 272. Sodium 136, potassium 4, creatinine 1. MICROBIOLOGY: Blood culture strep group G with recheck blood culture negative on 03/10. IMAGING DATA: Recheck indium scan for the knees showed no abnormal focal accumulation of labeled white blood cells in either knee to suggest localized active infection/inflammation. Especially none is seen in the left knee. Also, no evidence of cellulitis on the left knee. ASSESSMENT AND PLAN: 1. Strep bacteremia. 2. Cellulitis of left lower extremity-SHERITA and indium scan negative. 3. Morbid obesity with a BMI of 56.8. 4. Diabetes. 5. Hyperlipidemia. 6. Hypertension. 7. Discussed with the medical case manager to set up patient with 2 weeks of Rocephin 2 g IV piggyback q.12 hours. The patient to receive CBC, BMP once a week while he is on IV antibiotics. All the labs reported to Dr. Gamble and arranged for PICC line removal after IV antibiotics completed. Follow up with Dr. Gamble in 2 weeks. Please refer to the chart for more information. Dictated by Bi Gunderson PA-C (Al) Re Gamble MD /MODL /[id number]
--- NOTE | 2020-03-14 15:29 | NUR ---
ORDER CLARIFIED BY SAM ARCINIEGA DR. ROCEPHIN 2 GMS IV Q12HR X 8WEEKS. ORDER CHANGED AND FAXED TO [facility]. CALL RECEIVED FROM SHYANN ANGELA FOR DR. TEJADA TO SIGN THE ORDER. SUZE STATES THE PT WILL DC HOME TOMORROW. WILL PLACE THE ORDER ON THE CHART FOR SIGNATURE AND WILL FAX TO [facility].
[2020-03-14] MEDS: MUPIROCIN 2% OINT 22 GM TUBE TOP SCH (15:54)
--- NOTE | 2020-03-14 17:50 | Progress Note ---
DATE: 03/14/2020 CONSULTANTS: 1. Dr. Gamble, infectious disease. 2. Dr. Sexton with Podiatry. 3. Dr. Gallego, Cardiology. CHIEF COMPLAINT: Fever, chills, redness and swelling to the left lower extremity. SUBJECTIVE: The patient is seen lying comfortably in bed, spouse at the bedside. No complaints. Denies any chest pain, shortness of breath, fever, or chills. Left lower extremity redness is improving. PHYSICAL EXAMINATION: VITAL SIGNS: Temperature 96.7, pulse is 66, respirations 20, blood pressure 141/61, pulse ox is 100% on room air. GENERAL: No acute distress. HEENT: Normocephalic and atraumatic. NECK: Supple. LUNGS: Clear to auscultation. CARDIOVASCULAR: Regular rate and rhythm. GI: Soft and nontender, obese. NEUROLOGIC: Alert, awake, and oriented x3. MUSCULOSKELETAL: Moves all extremities. Left lower extremity edema and . LABORATORY DATA: WBC 10.48, hemoglobin 12.5, hematocrit 39.7, platelet is 272. Sodium 135, potassium 4.01, BUN is 17, creatinine 1.0, glucose 172, calcium 9.3. IMPRESSION: 1. Sepsis present on admission due to left lower extremity cellulitis. Continue on Rocephin q.12 IV. Venous Doppler is negative. Indium scan negative for abscess. ID on the case. 2. Bacteremia due to cellulitis with Streptococcus group G. Repeat blood cultures are negative so far. Continue on Rocephin per ID. SHERITA was negative for vegetation per Cardiology. 3. Hypertension, continue losartan and hydrochlorothiazide. 4. History of atrial fibrillation, continue amiodarone and is on aspirin for CVA prophylaxis per his medical technologist chemistry. 5. High cholesterol, on statin. 6. Diabetes type 2, continue Actos, metformin, and sliding scale insulin. Lantus 10 units at bedtime. 7. Morbid obesity with BMI of 39. Discussed lifestyle modification. 8. Left second toe ulcer. Status post bedside debridement by Podiatry. 9. Deep vein thrombosis prophylaxis, Lovenox subcu b.i.d. PLAN: Continue IV antibiotics. CM has been consulted to arrange a total of 8 weeks of Rocephin 2 g IV times 8 week. Dictated by AGUSTIN Aguayo MD MIGUEL A Zuleta/ANN-MARIE /[id number]
--- NOTE | 2020-03-14 19:12 | NUR ---
WALKING ROUNDS PERFORMED, RECEIVED PT SITTING ON SIDE OF BED, AAOX3, RR EVEN AND NON-LABORED, ON ROOM AIR. NO S/SX OF DISTRESS NOTED. LEFT PT SITTING ON SIDE OF BED, BED IN LOW LOCKED POSITION, SIDE RAILS UPX2, CALL LIGHT AND PHONE WITHIN REACH.
--- NOTE | 2020-03-14 21:36 | Progress Note ---
DATE: 03/14/2020 Cardiology Progress Note SUBJECTIVE: Mr. Sandhu denies any chest pain or shortness of breath. His left leg discomfort continues to improve. He remained afebrile. OBJECTIVE: VITAL SIGNS: Temperature 98.2, heart rate 70, blood pressure 143/63, respiratory rate 20, O2 saturation of 100%, BMI 56.7. GENERAL: In no acute distress, alert. NECK: No JVD. CHEST: Clear to auscultation. CARDIOVASCULAR: Regular rate and rhythm. Normal S1 and S2. No S3 or S4. No murmurs, no rubs. ABDOMEN: Soft. Bowel sounds positive. EXTREMITIES: Trace edema. Left leg erythema to lower half. CARDIOVASCULAR MEDICATIONS: Reviewed. Aspirin 325 mg daily, atorvastatin 40 mg at bedtime, Lovenox 40 mg b.i.d., losartan 100 mg daily, ceftriaxone, vancomycin antibiotics, amiodarone 200 mg daily. LABORATORY DATA: Studies reviewed. Creatinine 1, potassium 4, bicarbonate 28, sodium 136, hemoglobin 12.5, white blood cells 10.4, platelets 172. AST 16, ALT 26, alkaline phosphatase 78. ASSESSMENT AND PLAN: 1. A 54-year-old man presents with recurrent bacterial infections, left leg cellulitis extreme morbid obesity with BMI of 56, hypertension, dyslipidemia, and diabetes mellitus. Recommend continue current cardiovascular medications. 2. Antibiotic duration per Infectious Disease. 3. Venous hypertension related changes to lower extremities, advised on weight loss, compression socks, elevation of lower extremity, p.r.n. diuretics and optimal diabetic care. Outpatient followup upon discharge, advised in 4-6 weeks. Aleksandr Delaney MD AFSondra/MODL /[id number]
[2020-03-14] MEDS: INSULIN GLARGINE 100 UNITS/ML VIAL SQ SCH (21:41)
[2020-03-14] MEDS: ATORVASTATIN 40 MG TAB PO SCH (21:42)
[2020-03-15] VITALS: BP 143/66
--- NOTE | 2020-03-15 01:52 | NUR ---
PER MD TEJADA OK TO GIVE IV VANCOMYCIN IF VANC TROUGH RESULTS LESS THAN 20.
[2020-03-15] MEDS: VANCOMYCIN 1GM/NS 250 ML 250 ML IV SCH (02:35)
[2020-03-15 04:00] VITALS: BP 147/85
--- NOTE | 2020-03-15 07:00 | NUR ---
Received bedside report. pt is alert resting in bed, no s/s of distress. call light within reach and instructed pt to call RN for help
--- NOTE | 2020-03-15 07:15 | NUR ---
STERILE DRESSING CHANGED PERFORMED TO (L) UPPER ARM PICC.
[2020-03-15 07:46] VITALS: BP 134/65
[2020-03-15 07:56] VITALS: BP 134/65
[2020-03-15] MEDS: HYDROCHLOROTHIAZIDE 25 MG TAB PO SCH (08:14)
[2020-03-15] MEDS: PIOGLITAZONE HCL 15 MG TAB PO SCH (08:14)
[2020-03-15] MEDS: LOSARTAN POTASSIUM 100 MG TAB PO SCH (08:14)
[2020-03-15] MEDS: PANTOPRAZOLE SOD 40 MG TABEC PO SCH (08:14)
[2020-03-15] MEDS: AMIODARONE HCL 200 MG TAB PO SCH (08:14)
[2020-03-15] MEDS: MUPIROCIN 2% OINT 22 GM TUBE TOP SCH (08:14)
[2020-03-15] MEDS: ASPIRIN 325 MG TAB PO SCH (08:14)
[2020-03-15] MEDS: METFORMIN HCL 500 MG TAB PO SCH (08:14)
[2020-03-15] MEDS: LACTOBACILLUS ACIDOPHILUS CAPSULE PO SCH (08:14)
[2020-03-15] MEDS: ENOXAPARIN SOD INJ 40 MG/0.4 ML SYR SC SCH (08:14)
[2020-03-15] MEDS: INSULIN REGULAR, HUMAN 100 UNIT/1 ML 3ML VIAL SQ SCH ×2 (08:53→12:26)
--- NOTE | 2020-03-15 10:04 | Progress Note ---
DATE: 03/15/2020 SUBJECTIVE: This is a 54-year-old male with past medical history of type 2 diabetes, peripheral neuropathy, hypertension, and atrial fibrillation, who was admitted for sepsis from lower extremity cellulitis one week ago. The patient is resting comfortably at bedside. Currently, he denies nausea, vomiting, fever, chills, chest pain, or shortness of breath. PHYSICAL EXAMINATION: GENERAL: Alert and oriented x3, in no apparent distress. VITAL SIGNS: Today, temperature 97.9, heart rate 66, respiratory rate 19, blood pressure 134/65, and pulse ox is 97% on room air. PROBLEM FOCUSED LOWER EXTREMITY PHYSICAL EXAM: Vascular, dorsalis pedis and posterior tibial pulses are faintly palpable. Improvement in edema, erythema, and warmth to the left lower extremity. Negative erythema, edema, or warm to the 2nd digit. NEUROLOGICAL: Sensation is diminished to light touch bilateral. MUSCULOSKELETAL: Improved pain on palpation of the left lower extremity. Negative pain on palpation of the left 2nd digit. DERMATOLOGICAL: Superficial ulceration is noted to the plantar aspect of the left 2nd digit which is nearly fully epithelialized at this time. No local acute signs of infection. No new labs today. ASSESSMENT: 1. Left lower extremity edema, cellulitis and septicemia. 2. Venous stasis. 3. Superficial ulceration left 2nd digit, nearly fully epithelialized. 4. Type 2 diabetes. 5. Peripheral neuropathy. 6. Hypertension. 7. Obesity. PLAN: The patient was seen and evaluated. Discussed condition and treatment options with the patient in detail. The wound to the left 2nd digit was examined and again it is nearly fully epithelialized with no local acute signs of infection. Continue IV antibiotics per Infectious Disease for lower extremity venous stasis cellulitis. The patient is afebrile with no leukocytosis. Bone scan was negative for osteomyelitis and SHERITA was negative for any vegetation. Continue to recommend elevation of the left lower extremity with compression if okay per Cardiology. The patient again is stable to be discharged from Podiatry standpoint on IV antibiotics once medically stable and to follow up in the office within 1-2 weeks for local wound care. The Podiatry Service will continue to monitor as an inpatient. NIKHIL Eaton/MODBryon /[id number]
[2020-03-15 11:30] VITALS: BP 118/51
[2020-03-15] MEDS: CEFTRIAXONE SOD 2 GM/NS 100 ML 100 ML IV SCH (12:22)
--- NOTE | 2020-03-15 13:40 | Progress Note ---
DATE: SUBJECTIVE: The patient seen and evaluated. Available labs and notes reviewed. I discussed with the patient and family member. REVIEW OF SYSTEMS: No nausea, vomiting, fever, chills, chest pain, or shortness of breath. Has eye irritation, which is not new, it is chronic and he already has a prescription from his eye physician in hand. Otherwise, no complaints. PHYSICAL EXAMINATION: VITAL SIGNS: Temperature 97.9, pulse 66, respirations 19, and blood pressure 134/65. The patient remains afebrile. GENERAL: Alert and oriented, in no acute distress. CV: S1, S2. CHEST: Equal expansion. Clear to auscultation, in no acute distress. ABDOMEN: Soft, nontender. No distention. HEENT: Moist. No pallor. No JVD. With right eye irritated. EXTREMITIES: Moves all. No significant edema. The patient has a left upper extremity PICC line. ABDOMEN: Soft, obese, nontender. MEDICATIONS: Reviewed. From ID point of view, the patient is on vancomycin and Rocephin. LABORATORY STUDIES: No new CBC or BMP available. Toxicology, no new toxicology study is available. Vancomycin trough was 10.3 yesterday. Serology, Coronavirus PCR not detected on 03/07/2020. MICROBIOLOGY: Recheck blood culture negative, previous blood culture was streptococcus group G. ASSESSMENT AND PLAN: 1. Streptococcus group G bacteremia. SHERITA was negative. Indium scan was negative. Recheck blood culture negative on 03/10 three days after initial positive blood culture. Discharge planning in progress. The patient is status post left upper extremity PICC line with the plan to receive Rocephin for home infusion by home health and follow with Dr. Gamble. 2. Diabetes. 3. Hypertension. 4. Morbid obesity with BMI of 56.8. Continue to monitor the patient clinically. Follow up with the labs. Vancomycin IV. Continue with Rocephin. Please refer to chart for more information. Dictated by Bi Gunderson PA-C (Al) Re Gamble MD /MODL /[id number]
--- NOTE | 2020-03-15 14:55 | NUR ---
Nutrition Screen Note RD Recommendation for Physician: -Recommend cardiac/1800 ADA diet -Encourage gradual weight loss-post discharge Plan of Care: RD following, monitoring for tolerance and adequacy Nutrition reason for involvement: follow up Primary Diagnose(s): sepsis PMH: afib, high cholesterol, type 2 diabetes, obesity Ht: 71 in Wt: 407 lbs (03/14) 429 lb (03/07) Suspect weight error BMI: 56.8 kg/m2 IBW:[address] Assessment: 03/15: Follow up. It is recorded that pt is consuming 75-100% of meals. Will continue to monitor. (03/08/20) Chart reviewed. Labs and meds reviewed. Pt is a 54 year old male admitted with sepsis. Pt reports eating <50% since yesterday, but had been eating well prior to admission. Pt stated he usually weighs 417 lbs; however, but currently has a weight of 429 lbs in chart. No N/V/D/C or chewing/swallowing issues. Will continue to monitor Current Diet: 1800 ADA/cardiac Malnutrition Evaluation (03/08/20) The patient does not meet criteria for a specified degree of malnutrition at this time. Will re-evaluate at follow-up as appropriate. Diet Education Needs Assessment: (03/08) Pt declined the need for diet education at time of visit Nutrition Care Level: low Signed: Wendy Jarquin, RD, LD
--- NOTE | 2020-03-16 00:47 | Discharge Summary ---
PRIMARY CARE PHYSICIAN: Dr. Lyons at [facility]. FINAL DISCHARGE DIAGNOSES: 1. Sepsis due to left lower extremity cellulitis, recurrent. 2. Bacteremia. 3. Hypertension. 4. History of atrial fibrillation. 5. High cholesterol. 6. Diabetes type 2. 7. Morbid obesity. CONSULTANTS: 1. Dr. Gamble with Infectious Disease. 2. Dr. Sexton with Podiatry. 3. Dr. Gallego with Cardiology. PROCEDURES: 1. He had a bedside debridement of the 2nd left toe. 2. SHERITA to rule out vegetation for bacteremia. HISTORY: Per HPI. HOSPITAL COURSE: This is a 54-year-old male with past medical history of hypertension, atrial fibrillation, high cholesterol, diabetes type 2, morbid obesity with recurrent left lower extremity cellulitis, presented with sepsis present on admission due to his left lower extremity cellulitis. Blood cultures were positive for Streptococcus group G, venous Doppler was negative for acute DVT. He was started on Rocephin q.12 hours per Infectious Disease recommendation. Repeat blood culture was negative. Cardiology was consulted for SHERITA, was negative for vegetation. He was noted to have a 2nd left toe ulcer. Podiatry was consulted and he underwent bedside debridement. Since his left lower extremity cellulitis recurrent, he also had indium scan, which was negative for abscess. PICC line was placed and home health arranged for 6 weeks of Rocephin 2 g IV q.12. He is afebrile, vital signs stable, left lower extremity redness is improved. He was given Lovenox for DVT prophylaxis and Lifestyle modification discussed. PHYSICAL EXAMINATION: VITAL SIGNS: Temperature 97.7, pulse is 66, respirations 20, blood pressure 118/51, pulse ox is 95% on room air. GENERAL: No acute distress. HEENT: Normocephalic and atraumatic. LUNGS: Clear to auscultation. CARDIOVASCULAR: Regular rate and rhythm. GI: Soft and nontender, obese. NEUROLOGIC: Alert, awake, and oriented x3. MUSCULOSKELETAL: Moves all extremities, left lower extremity edema and erythema, improving. PSYCH: Calm. CONDITION: Improved and stable. DISCHARGE MEDICATIONS: Please see medication reconciliation list. FOLLOWUP: Follow up with Dr. Gamble in 1 to 2 weeks, Podiatry in 1 to 2 weeks, and PCP in 1 to 2 weeks. TIME SPENT: Total time of discharge is 33 minutes. Dictated by Rhiannon De Los Santos, ANP MD MIGUEL A Zuleta/MODL /[id number] cc: [facility]illoShel[facility]
== END 2020-03-15 15:20 | disposition home or self-care (01) | DRG 854 ==
LOC: ER 12:00 → ERHOLD 14:05 → IMCU 17:36 → MED/SURG3 03-08 09:10
PROVIDERS: ADMIT Internal Medicine; ATTEND Internal Medicine
PROC: 8E0ZXY6 Isolation (ICD-10-PCS; principal; 2020-03-07)
PROC: 02HV33Z Insertion of Infusion Device into Superior Vena Cava, Percutaneous Approach (ICD-10-PCS; 2020-03-10)
PROC: B548ZZA Ultrasonography of Superior Vena Cava, Guidance (ICD-10-PCS; 2020-03-10)
PROC: 0JBR0ZZ Excision of Left Foot Subcutaneous Tissue and Fascia, Open Approach (ICD-10-PCS; 2020-03-11)
PROC: B24BZZ4 Ultrasonography of Heart with Aorta, Transesophageal (ICD-10-PCS; 2020-03-12)
DX: A40.1 Sepsis due to streptococcus, group B (principal); L03.116 Cellulitis of left lower limb; E87.2 Acidosis; Z68.43 Body mass index [BMI] 50.0-59.9, adult; I10 Essential (primary) hypertension; E78.5 Hyperlipidemia, unspecified; E66.01 Morbid (severe) obesity due to excess calories; Z87.891 Personal history of nicotine dependence; Z82.49 Family history of ischemic heart disease and other diseases of the circulatory system; R65.20 Severe sepsis without septic shock; E78.00 Pure hypercholesterolemia, unspecified; Z83.3 Family history of diabetes mellitus; E11.42 Type 2 diabetes mellitus with diabetic polyneuropathy; Z79.82 Long term (current) use of aspirin; G47.30 Sleep apnea, unspecified; B95.1 Streptococcus, group B, as the cause of diseases classified elsewhere; I48.0 Paroxysmal atrial fibrillation; R53.81 Other malaise; L97.522 Non-pressure chronic ulcer of other part of left foot with fat layer exposed; Z79.4 Long term (current) use of insulin; Z11.59 Encounter for screening for other viral diseases
CPT/HCPCS: 36415; 36569; 71045; 78300; 80048; 80053; 80202; 81001; 82550; 82553; 82805; 82948; 83605; 84484; 85025; 87040; 87071; 87205; 87635; 93005; 93307; 93312; 93325; 93971; 96372; 99285; A9570; J0692; J0696; J1650; J1815; J1817; J1940; J2250; J3010; J3370; J7030; J7050

== ENCOUNTER 2024-12-19 23:16 | Inpatient (IN) | payer OTHER ==
[~2024-12-19] VITALS: Ht 180.3 cm; Wt 182.5 kg
[2024-12-20] VITALS (28 sets, daily range): BP systolic 99–186; BP diastolic 59–85; PULSE 89–124; RESP 0–35; TEMP 97.2–100.2; O2SAT 91–98
[2024-12-20 00:01] LABS: BASOPHILS % 0.1 % (0.0-1.0); EOSINOPHILS % 0.1 % (0.0-6.0); HEMATOCRIT 49.8 % (38.2-49.6); HEMOGLOBIN 16.1 g/dL (14.0-18.0); LYMPHOCYTES # (AUTO) 0.8 (1.0-3.2); LYMPHOCYTES % 4.5 % (18.0-39.1); MEAN CORPUSCULAR HEMOGLOBIN 29.7 pg (28-32); MEAN CORPUSCULAR HGB CONC 32.3 g/dL (31-35); MEAN CORPUSCULAR VOLUME 91.7 fL (81-99); MONOCYTES # (AUTO) 0.7 (0.2-0.8); MONOCYTES % 3.8 % (4.4-11.3); NEUTROPHILS % 90.9 % (38.7-80.0); PLATELET COUNT 204 x10e3/uL (140-360); RED BLOOD COUNT 5.43 x10e6/uL (4.3-5.7); RED CELL DISTRIBUTION WIDTH 13.7 % (11.7-14.4)
[2024-12-20] MEDS: ACETAMINOPHEN 325 MG TAB PO STA (00:08)
[2024-12-20] MEDS: SODIUM CHLORIDE 0.9% 1000ML 1,000 ML IV STA (00:08)
[2024-12-20 00:28] LABS: ALBUMIN 3.4 g/dL (3.5-5.0); ALBUMIN/GLOBULIN RATIO 0.8 (0.8-2.0); ANION GAP 20.6 mmol/L (8-16); BILIRUBIN,TOTAL 0.9 mg/dL (0.2-1.2); CALCIUM 9.6 mg/dL (8.4-10.2); CREATININE, SERUM 1.16 mg/dL (0.72-1.25); POTASSIUM 4.6 mmol/L (3.5-5.1); TOTAL PROTEIN 7.9 g/dL (6.5-8.1)
[2024-12-20 00:33] LABS: CORONAVIRUS COVID-19 AG NEGATIVE (NEGATIVE); INFLUENZA A AG NEGATIVE (NEGATIVE); INFLUENZA B AG NEGATIVE (NEGATIVE); STREPTOCOCCUS GRP A ANTIGEN NEGATIVE (NEGATIVE)
[2024-12-20] MEDS ORDERED: HYDROCODONE/APAP 5MG-325MG TAB PO PRN (01:00)
[2024-12-20] MEDS ORDERED: HYDRALAZINE HCL 20 MG/ML VIAL IV PRN (01:00)
[2024-12-20] MEDS ORDERED: ACETAMINOPHEN 325 MG TAB PO PRN (01:00)
[2024-12-20] MEDS ORDERED: LIDOCAINE 4% PATCH TP PRN (01:00)
[2024-12-20] MEDS ORDERED: MELATONIN 5 MG TABLET PO PRN (01:00)
[2024-12-20] MEDS ORDERED: POTASSIUM CHLORIDE 20 MEQ TAB CR PO PRN (01:00)
[2024-12-20] MEDS ORDERED: BENZONATATE 100 MG CAP PO PRN (01:00)
[2024-12-20] MEDS ORDERED: DOCUSATE SODIUM 100 MG CAP PO PRN (01:00)
[2024-12-20] MEDS ORDERED: ONDANSETRON HCL INJ 2MG/ML 2ML 2 MG/ML VIAL IV PRN ×2 (01:00→02:00)
[2024-12-20] MEDS ORDERED: DIPHENHYDRAMINE HCL 25 MG CAP PO PRN (01:00)
[2024-12-20] MEDS ORDERED: DEXTROSE 50% SYRINGE 50 ML IV PRN ×2 (01:00→13:30)
[2024-12-20] MEDS ORDERED: ALBUTEROL/IPRATROPIUM 3 ML NEB NEB PRN (01:00)
[2024-12-20] MEDS: DILTIAZEM HCL 5 MG/ML 5 ML VIAL IV STA ×2 (01:32→02:02)
[2024-12-20] MEDS: DIGOXIN INJ 0.25 MG/ML 2 ML AMP IV STA (01:33)
[2024-12-20] MEDS: METOPROLOL TARTRATE INJ 1 MG/ML VIAL IV STA (01:34)
[2024-12-20] MEDS ORDERED: SODIUM CHLORIDE FLUSH 10 ML SYR INJ PRN (02:00)
[2024-12-20] MEDS ORDERED: Morphine 4mg INJECTION 4 MG/ML INJ IV PRN (02:00)
[2024-12-20] MEDS ORDERED: AMIODARONE 900MG 900 MG in Premix Bag 1 BAG IV SCH (02:45)
[2024-12-20] MEDS: AMIODARONE HCL 150 MG/100 ML BAG IV ONE (02:53)
[2024-12-20] MEDS: AMIODARONE 900MG 500 ML IV SCH (03:06)
[2024-12-20 03:35] LABS: BILIRUBIN,URINE NEGATIVE (NEGATIVE); CLARITY,URINE CLEAR (CLEAR); COLOR,URINE YELLOW (YELLOW); GLUCOSE, URINE >=1000 (NEGATIVE); KETONES,URINE TRACE (NEGATIVE); LEUKOCYTE ESTERASE ,URINE NEGATIVE (NEGATIVE); NITRITE,URINE NEGATIVE (NEGATIVE); PH,URINE 5.5 (5 - 7); PROTEIN,URINE DIPSTICK NEGATIVE (NEGATIVE); URINE UROBILINOGEN 1 mg/dL (0.2 - 1)
[2024-12-20] MEDS ORDERED: NEURONTIN300 MG PO (03:38)
[2024-12-20 03:42] LABS: RBC,URINE 0-5 /HPF (0-5); WBC,URINE (MAN) 0-5 /HPF (0-5)
[2024-12-20 03:43] LABS: BACTERIA,URINE FEW /HPF; EPITHELIAL CELLS,URINE FEW /LPF; RENAL EPITHELIAL CELLS,URINE FEW
[2024-12-20 04:04] LABS: TROPONIN I 0.015 ng/mL (0-0.300)
[2024-12-20 06:31] LABS: BASOPHILS % 0.2 % (0.0-1.0); HEMOGLOBIN 14.8 g/dL (14.0-18.0); LYMPHOCYTES # (AUTO) 0.8 (1.0-3.2); LYMPHOCYTES % 3.5 % (18.0-39.1); MEAN CORPUSCULAR HEMOGLOBIN 29.9 pg (28-32); MEAN CORPUSCULAR HGB CONC 33.6 g/dL (31-35); MEAN CORPUSCULAR VOLUME 88.9 fL (81-99); MONOCYTES % 4.5 % (4.4-11.3); NEUTROPHILS # (AUTO) 19.3 (2.1-6.9); NEUTROPHILS % 90.3 % (38.7-80.0); PLATELET COUNT 197 x10e3/uL (140-360); RED BLOOD COUNT 4.95 x10e6/uL (4.3-5.7); RED CELL DISTRIBUTION WIDTH 13.9 % (11.7-14.4); WHITE BLOOD COUNT 21.39 x10e3/uL (4.8-10.8)
[2024-12-20 06:55] LABS: ANION GAP 15.9 mmol/L (8-16); CALCIUM 8.4 mg/dL (8.4-10.2); CHOL/HDL RATIO 2.5 (3.9-4.7); CREATININE, SERUM 1.22 mg/dL (0.72-1.25); MAGNESIUM 1.8 MG/DL (1.3-2.1); POTASSIUM 3.9 mmol/L (3.5-5.1)
[2024-12-20] MEDS ORDERED: JARDIANCE25 MG PO (06:57)
[2024-12-20 07:15] LABS: TROPONIN I 0.038 ng/mL (0-0.300)
[2024-12-20 07:18] LABS: THYROID STIMULATING HORMONE 0.474 uIU/mL (0.350-4.940)
[2024-12-20 08:38] LABS: BAND NEUTROPHILS % (MANUAL) 4 %; LYMPHOCYTES % (MANUAL) 7 % (19-48); MONOCYTES % (MANUAL) 10 % (3.4-9.0); NEUTROPHILS % (MANUAL) 79 % (40-74); PLATELET ESTIMATE ADEQUATE; PLATELET MORPHOLOGY COMMENT NORMAL
[2024-12-20 08:39] LABS: RBC MORPHOLOGY COMMENT NORMAL
[2024-12-20] MEDS: PANTOPRAZOLE SOD 40 MG TABEC PO SCH (09:24)
[2024-12-20] MEDS: ENOXAPARIN SODIUM INJ 100 MG/ML SYR SC SCH (09:58)
[2024-12-20] MEDS: METOPROLOL TARTRATE 25 MG TAB PO SCH (09:58)
[2024-12-20] MEDS: VANCOMYCIN 1.5 GM/300 ML (PEG) 300 ML IV SCH (14:18)
[2024-12-20] MEDS ORDERED: ENOXAPARIN SOD INJ 40 MG/0.4 ML SYR SC SCH (17:00)
[2024-12-20] MEDS: GABAPENTIN 300 MG CAP PO SCH (17:15)
[2024-12-20] MEDS: INSULIN LISPRO 100 UNIT/1 ML 3ML VIAL SQ SCH (17:16)
[2024-12-20] MEDS: ATORVASTATIN 40 MG TAB PO SCH (21:51)
[2024-12-20] MEDS: INSULIN GLARGINE 100 UNITS/ML VIAL SQ SCH (21:51)
[2024-12-21] VITALS (14 sets, daily range): BP systolic 103–150; BP diastolic 35–77; PULSE 71–86; RESP 13–28; TEMP 98.4–98.8; O2SAT 90–97
[2024-12-21 06:41] LABS: BASOPHILS % 0.3 % (0.0-1.0); HEMATOCRIT 46.1 % (38.2-49.6); HEMOGLOBIN 15.1 g/dL (14.0-18.0); LYMPHOCYTES # (AUTO) 1.3 (1.0-3.2); LYMPHOCYTES % 10.1 % (18.0-39.1); MEAN CORPUSCULAR HEMOGLOBIN 29.5 pg (28-32); MEAN CORPUSCULAR HGB CONC 32.8 g/dL (31-35); MEAN CORPUSCULAR VOLUME 90.2 fL (81-99); MONOCYTES % 7.5 % (4.4-11.3); NEUTROPHILS # (AUTO) 10.6 (2.1-6.9); NEUTROPHILS % 81.6 % (38.7-80.0); PLATELET COUNT 147 x10e3/uL (140-360); RED BLOOD COUNT 5.11 x10e6/uL (4.3-5.7); RED CELL DISTRIBUTION WIDTH 14.3 % (11.7-14.4); WHITE BLOOD COUNT 13.03 x10e3/uL (4.8-10.8)
[2024-12-21 07:12] LABS: ALBUMIN 2.5 g/dL (3.5-5.0); ALBUMIN/GLOBULIN RATIO 0.6 (0.8-2.0); ANION GAP 15.6 mmol/L (8-16); CALCIUM 8.7 mg/dL (8.4-10.2); CREATININE, SERUM 1.1 mg/dL (0.72-1.25); POTASSIUM 3.6 mmol/L (3.5-5.1); TOTAL PROTEIN 6.6 g/dL (6.5-8.1)
[2024-12-21 08:08] LABS: TROPONIN I 0.026 ng/mL (0-0.300)
[2024-12-21] MEDS: METOPROLOL SUCCINATE 50 MG TAB XL PO SCH (10:24)
[2024-12-21] MEDS: AMIODARONE HCL 200 MG TAB PO SCH (10:24)
[2024-12-21] MEDS: CEFTRIAXONE 2 GM in SODIUM CHLORIDE 0.9% 100 ML IV SCH (19:38)
[2024-12-22] VITALS (12 sets, daily range): BP systolic 94–148; BP diastolic 63–79; PULSE 64–77; RESP 16–21; TEMP 97.6–98.7; O2SAT 94–98
[2024-12-22 06:53] LABS: BASOPHILS % 0.2 % (0.0-1.0); EOSINOPHILS % 0.5 % (0.0-6.0); HEMATOCRIT 43.1 % (38.2-49.6); HEMOGLOBIN 13.9 g/dL (14.0-18.0); LYMPHOCYTES # (AUTO) 1.5 (1.0-3.2); MEAN CORPUSCULAR HEMOGLOBIN 29.3 pg (28-32); MEAN CORPUSCULAR HGB CONC 32.3 g/dL (31-35); MEAN CORPUSCULAR VOLUME 90.9 fL (81-99); MONOCYTES # (AUTO) 1.2 (0.2-0.8); MONOCYTES % 13.7 % (4.4-11.3); NEUTROPHILS # (AUTO) 5.9 (2.1-6.9); NEUTROPHILS % 68.1 % (38.7-80.0); PLATELET COUNT 163 x10e3/uL (140-360); RED BLOOD COUNT 4.74 x10e6/uL (4.3-5.7); RED CELL DISTRIBUTION WIDTH 13.9 % (11.7-14.4); WHITE BLOOD COUNT 8.67 x10e3/uL (4.8-10.8)
[2024-12-22 07:49] LABS: ANION GAP 12.9 mmol/L (8-16); CALCIUM 8.6 mg/dL (8.4-10.2); CREATININE, SERUM 0.97 mg/dL (0.72-1.25); POTASSIUM 3.9 mmol/L (3.5-5.1)
[2024-12-22] MEDS ORDERED: IOPAMIDOL 370 MG/ML 100 ML INFUS..BTL INJ ONE (15:34)
[2024-12-23] VITALS (10 sets, daily range): BP systolic 121–134; BP diastolic 61–76; PULSE 58–74; RESP 18–20; TEMP 97.8–98.2; O2SAT 95–100
[2024-12-23 06:31] LABS: BASOPHILS % 0.4 % (0.0-1.0); EOSINOPHILS # (AUTO) 0.1 (0.0-0.4); EOSINOPHILS % 1.6 % (0.0-6.0); HEMATOCRIT 42.6 % (38.2-49.6); HEMOGLOBIN 13.8 g/dL (14.0-18.0); LYMPHOCYTES # (AUTO) 1.8 (1.0-3.2); LYMPHOCYTES % 26.7 % (18.0-39.1); MEAN CORPUSCULAR HEMOGLOBIN 29.2 pg (28-32); MEAN CORPUSCULAR HGB CONC 32.4 g/dL (31-35); MEAN CORPUSCULAR VOLUME 90.1 fL (81-99); MONOCYTES # (AUTO) 1.2 (0.2-0.8); MONOCYTES % 17.1 % (4.4-11.3); NEUTROPHILS # (AUTO) 3.7 (2.1-6.9); NEUTROPHILS % 53.8 % (38.7-80.0); PLATELET COUNT 201 x10e3/uL (140-360); RED BLOOD COUNT 4.73 x10e6/uL (4.3-5.7); RED CELL DISTRIBUTION WIDTH 13.7 % (11.7-14.4)
[2024-12-23 06:43] LABS: ANION GAP 13.9 mmol/L (8-16); CALCIUM 8.4 mg/dL (8.4-10.2); CREATININE, SERUM 0.88 mg/dL (0.72-1.25); POTASSIUM 3.9 mmol/L (3.5-5.1)
[2024-12-23] MEDS: KETOROLAC TROMETHAMINE 30 MG/ML VIAL IV SCH (17:07)
[2024-12-23] MEDS: APIXABAN 5 MG TABLET PO SCH (20:51)
[2024-12-23] MEDS: INSULIN GLARGINE 100 UNITS/ML VIAL SQ SCH (21:02)
[2024-12-24] VITALS (8 sets, daily range): BP systolic 121–158; BP diastolic 62–71; PULSE 60–77; RESP 18–20; TEMP 97.8–98.1; O2SAT 95–100
[2024-12-24] MEDS ORDERED: TRESIBA100 UNIT/1 SQ (13:56)
[2024-12-25] VITALS: BP 135/61; PULSE 63; RESP 18; TEMP 98.1; O2SAT 96
[2024-12-25 04:00] VITALS: BP 117/65; PULSE 62; RESP 18; TEMP 98.2; O2SAT 100
[2024-12-25 06:00] LABS: HEMATOCRIT 43.9 % (38.2-49.6)
[2024-12-25 06:34] LABS: ANION GAP 11.9 mmol/L (8-16); CALCIUM 8.3 mg/dL (8.4-10.2); CREATININE, SERUM 0.85 mg/dL (0.72-1.25); POTASSIUM 3.9 mmol/L (3.5-5.1)
[2024-12-25] MEDS: AMIODARONE HCL 200 MG TAB PO SCH (09:00)
[2024-12-25 09:41] VITALS: BP 127/64; PULSE 61; RESP 17; TEMP 97.4; O2SAT 98
[2024-12-25 10:58] VITALS: BP 127/64; PULSE 61; RESP 17; TEMP 97.4; O2SAT 98
[2024-12-25 13:03] VITALS: BP 144/88; PULSE 59; RESP 18; TEMP 98.2; O2SAT 100
[2024-12-25 17:02] VITALS: BP 137/68; PULSE 60; RESP 17; TEMP 97.7; O2SAT 100
== END 2024-12-25 17:45 | disposition home health service (06) | DRG 871 ==
LOC: ER 23:24 → ERHOLD 12-20 01:50 → ICU 12-20 03:20 → MED/SURG2 12-22 22:28
PROVIDERS: ADMIT Internal Medicine; ATTEND Internal Medicine
PROC: 3E0333Z Introduction of Anti-inflammatory into Peripheral Vein, Percutaneous Approach (ICD-10-PCS; principal; 2024-12-20)
DX: A40.0 Sepsis due to streptococcus, group A (principal); J96.21 Acute and chronic respiratory failure with hypoxia; J96.22 Acute and chronic respiratory failure with hypercapnia; E87.20 Acidosis, unspecified; E66.2 Morbid (severe) obesity with alveolar hypoventilation; Z68.43 Body mass index [BMI] 50.0-59.9, adult; L03.115 Cellulitis of right lower limb; I11.0 Hypertensive heart disease with heart failure; I50.32 Chronic diastolic (congestive) heart failure; R65.20 Severe sepsis without septic shock; E11.51 Type 2 diabetes mellitus with diabetic peripheral angiopathy without gangrene; E11.621 Type 2 diabetes mellitus with foot ulcer; I48.0 Paroxysmal atrial fibrillation; E78.5 Hyperlipidemia, unspecified; L97.511 Non-pressure chronic ulcer of other part of right foot limited to breakdown of skin; S92.511A Displaced fracture of proximal phalanx of right lesser toe(s), initial encounter for closed fracture; Z11.52 Encounter for screening for COVID-19; B95.1 Streptococcus, group B, as the cause of diseases classified elsewhere; R53.81 Other malaise; K21.9 Gastro-esophageal reflux disease without esophagitis; X58.XXXA Exposure to other specified factors, initial encounter; Z89.421 Acquired absence of other right toe(s); Z89.411 Acquired absence of right great toe; Z79.4 Long term (current) use of insulin; Z79.85 Long-term (current) use of injectable non-insulin antidiabetic drugs; Z79.82 Long term (current) use of aspirin; Z79.890 Hormone replacement therapy; Z79.84 Long term (current) use of oral hypoglycemic drugs
CPT/HCPCS: 36415; 71045; 80048; 80053; 80061; 81001; 82550; 82948; 83036; 83518; 83605; 83735; 84443; 84484; 85014; 85018; 85025; 87040; 87070; 87071; 87086; 87205; 93005; 93306; 93925; 93970; 94799; 96372; 99252; 99285; J0696; J1160; J1650; J1815; J1885; J2470; J2543; J7030; J7050; Q9967